=== PATIENT | male | born 1995 | race Caucasian/White ===

== ENCOUNTER 2018-09-27 16:09 | Emergency (ER) | payer MEDICAID, SELFPAY ==
[2018-09-27 16:12] VITALS: BP 126/66; PULSE 102; RESP 16; TEMP 37.1; O2SAT 98
--- NOTE | 2018-09-27 16:25 | ED.GENADUL_ITS ---
Discharge Plan Disposition Patient Disposition: HOME Condition: Stable Discharge Details Chief Complaint: Sorethroat Clinical Impression: Pharyngitis, Cough Primary Care Provider: Suellen,Local ED Provider: Yamilet Winn Home Meds and New Rx's Prescriptions: New azithromycin [Zithromax] 500 mg tablet 500 mg PO DAILY 5 Days Qty: 5 RF: 0 Discharge Instructions Instructions: Pharyngitis (ED), Acute Cough (ED) Additional Instructions: Drink plenty of fluids and get plenty of rest. Alternate Tylenol and Motrin as needed and directed for pain. Use Chloraseptic throat spray and sore throat lozenges to help with her sore throat. Refrain from trying to forcefully spit up your post-nasal drip as this is irritating to your throat. If you have no relief of symptoms in the next day, you may start the antibiotics. Follow-up with your primary care doctor in 1 week for reevaluation. Return immediately to the emergency department any worsening or new concerning symptoms. Discharge Data Discharge Date/Time-TO BE ENTERED AT DEPARTURE: 09/27/18 16:54 Discharge Physician: Yamilet Winn Medical Decision Making 23-year-old male who has a history of asthma, tobacco smoker, who presents with cough for the past 2 days and sore throat today. Denies any shortness of breath or wheezing pain or fever. Heart rate 102. Remainder vitals within normal limits. Afebrile. Patient appears nontoxic and in no acute distress. He has a mildly erythematous posterior oropharynx but no exudates, abscess, drooling, submandibular swelling, trismus. Lungs clear to auscultation. No meningeal signs. Rapid strep negative. Patient notes to be frequently attempting to spit up his postnasal drip. Discussed with patient that this is likely irritating his throat more. He had no episodes of vomiting. A dose of Decadron p.o. was given for sore throat. Although his rapid strep was negative, with his history of tobacco smoking and cough, will send home with a prescription for Zithromax to start for possible development of a throat infection or pneumonia. Will place patient on care management list to arrange for follow-up appoint with a primary care doctor and to return at any time if worse. Medical Records Medical records reviewed: Yes I reviewed the patient's medical records. Lab Data Lab results reviewed: Yes I reviewed the patient's lab results. Rapid strep negative. HPI General Mode of arrival: ambulatory . Date/Time Provider Initiated Documentation: 09/27/18 16:13 . Limitations to Documentation: no limitations . Information obtained by: patient . HPI Narrative: Patient is a 23-year-old male presents with cough with white or yellow sputum for 2 days and sore throat starting today. He denies any rate he. He did have a neck headache pain, vomiting, shortness of breath or chest pain. He has not taken any medication for his symptoms. Related Data Home Medications Medication Instructions Recorded Confirmed azithromycin [Zithromax] 500 mg PO DAILY 5 Days #5 tab 09/27/18 Previous Rx's Medication Instructions Recorded azithromycin [Zithromax] 500 mg PO DAILY 5 Days #5 tab 09/27/18 Allergies Allergy/AdvReac Type Severity Reaction Status Date / Time lactose Allergy Mild Other (See Unverified 10/09/17 06:38 Comment) General Stated Complaint: Sorethroat NATALIE: 3 Review of Systems Review of Systems All systems reviewed & are unremarkable except as noted in HPI and below Constitutional Reports as per HPI, Denies chills and Denies fever(s) Eyes Denies blurry vision ENT Denies dizziness, Reports sore throat and Denies throat swelling Cardiovascular Denies chest pain and Denies dyspnea Respiratory Reports cough and Denies dyspnea Gastrointestinal Denies abdominal pain, Denies diarrhea and Denies vomiting Genitourinary Denies hematuria and Denies dysuria Musculoskeletal Denies back pain and Denies numbness Integumentary/Breasts Denies lesions and Denies rash Neurologic Denies dizziness, Denies focal weakness and Denies numbness Allergic/Immunologic Denies throat swelling [facility] Medical History ADHD (Acute) Schizoaffective disorder (Acute) Asthma (Chronic) Bipolar disorder (Chronic) Surgical History No significant past surgical history (Acute) Social History Smoking and Tabacco status: Current every day alcohol intake: never substance use type: marijuana Exam Const General: cooperative, healthy appearing and no acute distress HENMT Head: normal to inspection Ears: hearing grossly normal bilaterally, external ears normal and TM's normal bilaterally General nose exam: external nose normal Face and sinus: normal facial exam Mouth: oral mucosae normal Throat: posterior oropharynx abnormal erythema; no exudates Eyes General: appearance normal, both eyes and all related structures Neck Neck: normal visual inspection Resp Effort & Inspection: normal respiratory effort and able to speak in complete sentences Auscultation: clear to auscultation bilaterally, no rales, no rhonchi and no wheezes Cardio Rate: regular rate Rhythm: regular rhythm GI Inspection: normal to inspection Palpation: soft, not firm, not rigid and nontender Skin General skin exam: no rashes or lesions noted Neuro General: alert, awake, oriented x3, moves all extremities, no meningeal signs and no focal motor deficits Motor: muscle tone normal throughout Extrem General: normal to inspection and full ROM Psych Appearance: grossly normal Affect: normal affect Course Vital Signs Temperature 98.8 F 09/27/18 16:12 Pulse 102 H 09/27/18 16:12 Respiratory Rate 16 09/27/18 16:12 Blood Pressure 126/66 09/27/18 16:12 Pulse Oximetry 98 09/27/18 16:12 Temperature 98.8 F 09/27/18 16:12 Temperature Source Tympanic 09/27/18 16:12 Pulse 102 H 09/27/18 16:12 Respiratory Rate 16 09/27/18 16:12 Respiratory Effort Non-Labored 09/27/18 16:16 Blood Pressure 126/66 09/27/18 16:12 Blood Pressure Position Sitting 09/27/18 16:12 Pulse Oximetry 98 09/27/18 16:12 Oxygen Delivery Method Room Air 09/27/18 16:12 Oxygen Flow Rate 0 09/27/18 16:12 Pain Level 7 09/27/18 16:12
[2018-09-27] MEDS: Dexamethasone 10 MG/ML VIAL PO (16:33)
[2018-09-27] MEDS: Ibuprofen 600 MG TAB PO (16:44)
[2018-09-27 16:54] VITALS: BP 126/66; PULSE 102; RESP 16; TEMP 37.1; O2SAT 98
--- NOTE | 2018-09-28 07:27 | PDOC.ERCMPRO ---
Care Management Progress Note 09/28-Dr. 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 Referral faxed to [facility] this am.
--- NOTE | 2018-09-28 07:29 | CMPROGNOTE_ITS ---
Care Management Progress Note 09/28-Dr. 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 Referral faxed to [facility] this am.
== END 2018-09-27 16:54 | disposition home or self-care (01) ==
PROVIDERS: Emergency Provider Physician Assistant
DX: J02.9 Acute pharyngitis, unspecified (principal); R05 Cough; F17.210 Nicotine dependence, cigarettes, uncomplicated
CPT/HCPCS: 87880; 99283; 87081; J1100

== ENCOUNTER 2019-06-17 00:51 | Emergency (ER) | payer MEDICAID, SELFPAY ==
[2019-06-17 00:53] VITALS: BP 141/81; PULSE 105; RESP 16; TEMP 36.4; O2SAT 99
--- NOTE | 2019-06-17 01:02 | ED.GENADUL_ITS ---
Discharge Plan Disposition Patient Disposition: HOME Condition: Stable Discharge Details Chief Complaint: Sorethroat Clinical Impression: Strep pharyngitis Primary Care Provider: Suellen,Local ED Provider: Ryan Flores Home Meds and New Rx's Prescriptions: New amoxicillin 500 mg capsule 500 mg PO BID Qty: 20 RF: 0 Discharge Instructions Instructions: Strep Throat (ED) Medical Decision Making 23 yo male has had sore throat for 3 days and his girlfriend recently was dx'd with strep. HE was trying to treat his sore throat at home and tonight was e ating popcorn and chewing on his fingernails and had increased pain in left posterior pharynx and thought maybe a fingernail got stuck. HE is speaking in full sentences and swallowing normally. He has erythema of the posterior pharynx, no foreign body, no pain over the hyoid and no restricted neck movements, no findings to suggest rpa, vessel captain, epiglotitis. I discussed with the pt at length the likelihood of a fingernail being stuck in the throat being low but a CT could confirm it but after discussing risks benefits of the radiation he declines to have a CT. Given the close contact with his girlfriend will tx as strep with amoxicillin and advised f/u with pcp if symptoms continue and return precautions given Differential Diagnosis Differential Diagnosis: laceration, strep throat HPI General Mode of arrival: ambulatory . Date/Time Provider Initiated Documentation: 06/17/19 00:57 . Limitations to Documentation: no limitations . Information obtained by: patient . History of Present Illness 23 year old M presents to the emergency department with the chief complaint of sore throat, described as moderate, Patient started experiencing this day(s) (2) and it has been constant. No relieving factors improve symptom(s), No exacerbating factors reported . Related Data Home Medications Medication Instructions Recorded Confirmed amoxicillin 500 mg PO BID #20 cap 06/17/19 Previous Rx's Medication Instructions Recorded amoxicillin 500 mg PO BID #20 cap 06/17/19 Allergies Allergy/AdvReac Type Severity Reaction Status Date / Time lactose Allergy Mild Other (See Unverified 10/09/17 06:38 Comment) General Stated Complaint: Sorethroat NATALIE: 4 Review of Systems All systems reviewed & are unremarkable except as noted in HPI and below Constitutional Constitutional: Denies weakness ENT Ears, Nose, Mouth, and Throat: Denies change in voice Cardiovascular Cardiovascular: Denies chest pain and Denies dyspnea Respiratory Respiratory: Denies cough and Denies dyspnea Gastrointestinal Gastrointestinal: Denies abdominal pain, Denies nausea and Denies vomiting Musculoskeletal Musculoskeletal: Denies joint swelling Neurologic Neurologic: Denies weakness [facility] Social History Smoking/Tobacco Use Status: Current every day Tobacco Type: cigarettes Alcohol Intake: current Alcohol Intake frequency: a few times a week Substance use type: marijuana, crack/cocaine and methamphetamine Do you feel safe at home: Yes Do you feel safe in your relationship?: Yes Exam Const General: no acute distress Orientation: alert HENMT Head: normal to inspection Ears: external ears normal General nose exam: external nose normal Mouth: moist mucous membranes Eyes General: appearance normal, both eyes and all related structures Neck Neck: normal visual inspection Resp Effort & Inspection: normal respiratory effort and able to speak in complete sentences Cardio Rate: regular rate Skin General skin exam: no rashes or lesions noted Neuro General: alert and oriented x3 Extrem General: normal to inspection Psych Mental Status: mental status grossly normal Course Vital Signs Vital signs: Vital Signs Temperature 36.4 C L 06/17/19 00:53 Pulse 105 H 06/17/19 00:53 Respiratory Rate 16 06/17/19 00:53 Blood Pressure 141/81 H 06/17/19 00:53 Pulse Oximetry 99 06/17/19 00:53 Temperature 36.4 C L 06/17/19 00:53 Temperature Source Skin 06/17/19 00:53 Pulse 105 H 06/17/19 00:53 Respiratory Rate 16 06/17/19 00:53 Respiratory Effort 06/17/19 00:56 Blood Pressure 141/81 H 06/17/19 00:53 Blood Pressure Position Sitting 06/17/19 00:53 Pulse Oximetry 99 06/17/19 00:53 Oxygen Delivery Method Room Air 06/17/19 00:53 Oxygen Flow Rate 0 06/17/19 00:53 Pain Level 9 06/17/19 00:53 Comment 06/17/19 00:53
[2019-06-17] MEDS: Lidocaine 2% Viscous 15 ML CUP PO (01:05)
[2019-06-17] MEDS: Amoxicillin 500 MG CAP PO (01:05)
--- NOTE | 2019-06-17 01:37 | NUR.NOTE ---
Tolerating popsicle. No longer coughing or gagging. Ambulated to exit with steady gait.
== END 2019-06-17 01:30 | disposition home or self-care (01) ==
LOC: ER 01:32
PROVIDERS: Emergency Provider Emergency Medicine
DX: J02.0 Streptococcal pharyngitis (principal); R11.10 Vomiting, unspecified; F41.9 Anxiety disorder, unspecified
CPT/HCPCS: 36415; 80053; 96361; 96374; 99283; 99284; 85025; J2060; J2405

== ENCOUNTER 2019-06-17 20:22 | Emergency (ER) | payer MEDICAID, SELFPAY ==
[2019-06-17] VITALS (7 sets, daily range): BP systolic 122–138; BP diastolic 62–88; PULSE 97–108; RESP 20; O2SAT 96–100
--- NOTE | 2019-06-17 20:51 | W.ED.GENAD ---
Discharge Plan Disposition Patient Disposition: HOME Discharge Details Chief Complaint: Sorethroat Clinical Impression: Sore throat [facility] Home Meds and New Rx's Prescriptions: No Action amoxicillin 500 mg capsule 500 mg PO BID Qty: 20 RF: 0 Discharge Instructions Instructions: Pharyngitis (ED) Additional Instructions: It is very important that you filled your prescription for antibiotics tomorrow. Return should your symptoms worsen or you develop difficulty or inability to swallow, intractable vomiting or difficulty breathing Referrals: Gerard Carmona PA [Emergency Provider] - Return if symptoms worsen Medical Decision Making This is a nontoxic-appearing 23-year-old male who presents to the emergency department with a foreign body sensation/sore throat in his posterior pharynx. He is afebrile and vital signs are otherwise stable with the exception of a mild tachycardia. Negative shock index. He is without fever. His physical exam is unremarkable. He has no stridor and is handling secretions. He is vomited several times however this appears to only be present when the medical staff member is in the room with him. I did give the patient a GI cocktail along with 1 mg of Ativan IV with significant relief. I do not feel the need for CT scan at this time based on the above physical exam findings. He did not fill his antibiotic for suspected pharyngitis with which I have urged him to do so. He does appear quite anxious and admits to frequent methamphetamine use. He states that he has not used in 2 days.? Possible methamphetamine withdrawals. HPI General Date/Time Provider Initiated Documentation: 06/17/19 20:41. HPI Narrative: Patient is a 23-year-old male who returns to the emergency department with lower sore throat pain over the last 24 hours. Patient states that he has had URI symptoms for roughly 3 days but acutely developed severe sore throat yesterday evening. He states the symptoms started after he was eating popcorn and biting his nails. He was seen here in the emergency department yesterday evening where he was diagnosed with suspected strep throat, as his significant other was diagnosed with confirmed strep. They did discuss the possibility of a foreign body based on his acute/abrupt symptoms however CT scan was deferred at that time. He has no stridor or wheezing. He states that he is been vomiting secondary to gagging from his throat pain. No fevers. No neck stiffness. No pain with rotation or flexion/extension of the head or neck. Patient does state that he has not used methamphetamine for roughly 3 days. Related Data Home Medications Medication Instructions Recorded Confirmed amoxicillin 500 mg PO BID #20 cap 06/17/19 Previous Rx's Medication Instructions Recorded amoxicillin 500 mg PO BID #20 cap 06/17/19 Allergies Allergy/AdvReac Type Severity Reaction Status Date / Time lactose Allergy Mild Other (See Unverified 10/09/17 06:38 Comment) General Stated Complaint: Sorethroat NATALIE: 4 Review of Systems Constitutional Constitutional: Denies chills, Denies fatigue, Denies fever(s), Denies headache(s), Denies lethargy, Denies malaise and Denies night sweats Eyes Eyes: Denies blurry vision and Denies floaters ENT Ears, Nose, Mouth, and Throat: Denies dysphagia, Denies dry mouth, Denies otalgia, Denies facial pain, Denies headache(s), Denies nasal discharge, Denies nasal obstruction, Denies neck mass, Denies neck pain, Reports sore throat, Denies throat swelling and Denies tongue swelling Cardiovascular Cardiovascular: Denies chest pain Respiratory Respiratory: Denies stridor and Denies wheezing Gastrointestinal Gastrointestinal: Denies dysphagia, Reports nausea and Reports vomiting Genitourinary Genitourinary: Denies dysuria Musculoskeletal Musculoskeletal: Denies neck pain Neurologic Neurologic: Denies headache(s) Endocrine Endocrine: Denies fatigue Allergic/Immunologic Allergic/Immunologic: Denies throat swelling, Denies tongue swelling and Denies wheezing [facility] Medical History ADHD (Acute) Asthma (Chronic) Bipolar disorder (Chronic) Schizoaffective disorder (Acute) Surgical History No significant past surgical history (Acute) Social History Smoking/Tobacco Use Status: Current every day Tobacco Type: cigarettes Alcohol Intake: current Alcohol Intake frequency: a few times a week Substance use type: marijuana, crack/cocaine and methamphetamine Details: per pt, last used meth 2 days ago Do you feel safe at home: Yes Do you feel safe in your relationship?: Yes Exam Const General: cooperative Orientation: alert, awake and oriented x3 HENMT Head: normal to inspection Face and sinus: normal facial exam Teeth and gingiva: dentition normal Throat: posterior oropharynx normal and uvula midline Eyes General: appearance normal, both eyes and all related structures Neck Neck: normal visual inspection, full ROM, no lymphadenopathy and trachea midline Thyroid: thyroid normal Lymphatic: no lymphadenopathy noted Chest Chest: normal inspection of the chest and normal palpation of entire chest wall Resp Effort & Inspection: normal respiratory effort, able to speak in complete sentences and no stridor Auscultation: clear to auscultation bilaterally Cardio Rate: regular rate Rhythm: regular rhythm Pulses: normal peripheral pulses GI Inspection: normal to inspection Palpation: soft Skin General skin exam: no rashes or lesions noted Course Vital Signs Vital signs: Vital Signs Pulse 108 H 06/17/19 20:32 Respiratory Rate 20 06/17/19 20:32 Blood Pressure 122/80 06/17/19 20:32 Pulse Oximetry 99 06/17/19 20:32 Temperature Source Skin 06/17/19 20:32 Pulse 108 H 06/17/19 20:32 Respiratory Rate 20 06/17/19 20:32 Respiratory Effort 06/17/19 20:40 Blood Pressure 122/80 06/17/19 20:32 Blood Pressure Position Sitting 06/17/19 20:32 Pulse Oximetry 99 06/17/19 20:32 Oxygen Delivery Method Room Air 06/17/19 20:32 Oxygen Flow Rate 0 06/17/19 20:32
[2019-06-17] MEDS: LORazepam 2 MG/ML VIAL 1 MG IVP (21:00)
[2019-06-17] MEDS: Normal Saline 1,000 ML 1000 ML IV (21:00)
[2019-06-17] MEDS: Normal Saline Flush 10 ML SYR IVP (21:00)
[2019-06-17 21:08] LABS: HCT 49.4 % (40.0-50.0); HGB 17.2 g/dL (13.5-17.5); Mean Corp. HGB Concentration 34.8 g/dL (32.0-36.0); Mean Corpuscular Hemoglobin 29.4 pg (27.0-33.0); Mean Corpuscular Volume 84.4 fL (80-95); Mean Platelet Volume 9.5 fL (8.0-11.0); Platelet Count 395 x1000/uL (130-400); RBC 5.85 m/cumm (4.50-6.00); RBC Distribution Width 12.7 % (11.8-14.1); White Blood Cell Count 12.76 k/cumm (4.4-10.8)
[2019-06-17] MEDS: Ondansetron 4 MG/2 ML VIAL IVP (21:18)
[2019-06-17 21:20] LABS: ALT 134 U/L (16-63); AST 166 U/L (15-37); Albumin 3.8 g/dL (3.4-5.0); Alkaline Phosphatase 78 U/L (46-116); BUN 25 mg/dL (7-18); Bilirubin, Total 1.5 mg/dL (0.2-1.0); Calcium 10.2 mg/dL (8.5-10.1); Chloride 95 mmol/L (98-107); Glucose 105 mg/dL (70-100); Potassium 3.3 mmol/L (3.5-5.1); Sodium 138 mmol/L (136-145); Total Protein 9.3 g/dL (6.4-8.2)
[2019-06-17 21:23] LABS: Absolute Eosinophil Count 0.13 k/cumm (0.0-0.7); Absolute Lymphocyte Count 3.32 k/cumm (1.2-3.4); Absolute Monocyte Count 1.53 k/cumm (0.11-0.7); Absolute Neutrophil Count 7.78 k/cumm (1.2-6.7); Atypical Lymphocytes % 1; Diff Comment Manual Differential; RBC Morphology Normal
--- NOTE | 2019-06-17 21:41 | NUR.NOTE ---
Nursing Note:No further vomiting at this time. Laying in bed, resting. S.O at bedside
== END 2019-06-17 22:07 | disposition home or self-care (01) ==
PROVIDERS: Emergency Provider Physician Assistant
DX: J02.0 Streptococcal pharyngitis (principal); R11.10 Vomiting, unspecified; F41.9 Anxiety disorder, unspecified
CPT/HCPCS: 36415; 80053; 96361; 96374; 99284; 85025; J2060; J2405

== ENCOUNTER 2020-04-13 21:28 | Emergency (ER) | payer MEDICAID, SELFPAY ==
--- NOTE | 2020-04-13 21:26 | ED.GENADUL_ITS ---
Discharge Plan Disposition Patient Disposition: HOME Condition: Improving Discharge Details Clinical Impression: Marijuana intoxication Primary Care Provider: Suellen,Local ED Provider: Afia Colvin Home Meds and New Rx's Prescriptions: Continued amoxicillin 500 mg capsule 500 mg PO BID Qty: 20 RF: 0 Discharge Instructions Additional Instructions: Continue to encourage water intake. Stop smoking marijuana. You have declined any blood work here. However, you may return at any time for continued evaluation. If you develop chest pain, shortness of breath, difficulty breathing, fevers or other new/worsening symptoms please seek care urgently once again. I have asked care management to help you establish primary care provider. Medical Decision Making Patient is a 24 year old male brought in via EMS with concern for marijuana intoxication. He states that he smokes marijuana multiple times per day. He smoked one hour prior to arrival, had smoked 2 hours prior to that. He states that he and his brother smoked a new marijuana and both had unusual effects including changes in sensation, tingling in hands/feet, headache, anxiety, dry mouth, dry eyes. He states that most of his symptoms, aside from the dry eyes and mouth, have resolved. EKG was obtained, reviewed by Dr. Winn. No acute ischemic changes noted. He was initially noted to have HR of 140 by EMS, he is downtrending now. At this time, I see no evidence of respiratory distress, rhabdomyolysis, cardiac dysrythmia or other emergent pathology. Raymond is refusing any further workup. Was hoping that we would test his marijuana.I did recommend hydration and blood work but he is declining. He was advised to stop smoking. He is hydrating here now. He reports feeling improved. He is aware that he may return at any time for further evaluation. Return precautions discussed. He is requesting discharge, is able to go home with signficant other. All of his questions and concerns were addressed, he is in agreement with this plan. HPI General Mode of arrival: EMS . Date/Time Provider Initiated Documentation: 04/13/20 21:34 . Limitations to Documentation: no limitations . Information obtained by: patient, EMS and RN notes reviewed . HPI Narrative: Patient is a 24 year old male presenting today with c/c of marijuana intoxi cation. States that approximately 1 hour prior to arrival he was smoking marijuana with his brother and 5 minutes after, developed altered sensations. States that he felt like I was a child and everything was claymation. States that he was having some tingling in his fingers and toes. Reports that initially he was having some chest heaviness. Reports that the symptoms have since resolved. Is currently endorsing burning in his eyes as well as dry mouth and headache. Headache was not thunderclap headache, this felt similar to previous. No nausea or vomiting. Related Data Home Medications Medication Instructions Recorded Confirmed amoxicillin 500 mg PO BID #20 cap 06/17/19 Previous Rx's Medication Instructions Recorded amoxicillin 500 mg PO BID #20 cap 06/17/19 Allergies Allergy/AdvReac Type Severity Reaction Status Date / Time lactose Allergy Mild Other (See Unverified 10/09/17 06:38 Comment) General NATALIE: 4 Review of Systems Constitutional Constitutional: Reports as per HPI, Denies chills, Denies fever(s), Reports headache(s), Denies lethargy and Denies poor appetite Eyes Eyes: Denies change in vision ENT Ears, Nose, Mouth, and Throat: Denies dizziness and Reports headache(s) Cardiovascular Cardiovascular: Reports as per HPI, Denies dyspnea and Denies dyspnea on exertion Respiratory Respiratory: Reports as per HPI, Denies chest congestion, Denies cough, Denies pain on inspiration, Denies pain with cough, Denies dyspnea, Denies dyspnea on exertion and Denies wheezing Gastrointestinal Gastrointestinal: Reports as per HPI, Denies abdominal pain, Denies diarrhea, Denies nausea and Denies vomiting Genitourinary Genitourinary: Denies system reviewed and no additional complaints, except as documented (denies change in urinary habits) Musculoskeletal Musculoskeletal: Reports as per HPI and Denies back pain Integumentary/Breasts Skin/Breast: Reports as per HPI and Denies rash Neurologic Neurologic: Reports as per HPI, Denies dizziness and Reports headache(s) Psychiatric Psychiatric: Reports visual hallucinations, Reports hallucinations, Denies tactile hallucinations and Denies suicidal ideation Allergic/Immunologic Allergic/Immunologic: Denies wheezing PFSH Medical History ADHD Asthma Bipolar disorder Schizoaffective disorder Surgical History No significant past surgical history Social History Smoking/Tobacco Use Status: Current every day Tobacco Type: cigarettes Alcohol Intake: current Alcohol Intake frequency: a few times a week Substance use type: marijuana, crack/cocaine and methamphetamine Details: per pt, last used meth 2 days ago Do you feel safe at home: Yes Do you feel safe in your relationship?: Yes Exam Const General: cooperative, comfortable, no acute distress, well developed, anxious and intoxicated appearing (appears stoned) Nutritional Appearance: well nourished and thin Orientation: alert, awake and oriented x3 HENMT Head: normal to inspection Ears: hearing grossly normal bilaterally Mouth: moist mucous membranes Chest Chest: normal inspection of the chest, normal palpation of entire chest wall and no crepitus Resp Effort & Inspection: normal respiratory effort, able to speak in complete sentences and no respiratory distress Auscultation: clear to auscultation bilaterally, no rales, no rhonchi and no wheezes Cardio Rate: regular rate Rhythm: regular rhythm Heart Sounds: S1 normal and S2 normal GI Inspection: normal to inspection, no edema and non-distended Palpation: soft, no hepatosplenomegaly, not firm, no guarding, not rigid and nontender Auscultation: normal bowel sounds Back/Spine/Pelvis Back: no CVA tenderness Thoracic/Lumbar Spine: thoracic and lumbar spine normal to inspection Skin General skin exam: no rashes or lesions noted Trauma: no lacerations or abrasions Neuro General: patient alert, patient awake and patient oriented x3 Cognition: normal cognition Speech: speech normal Gait: normal gait Extrem General: normal to inspection, capillary refill normal, no pedal edema, no calf tenderness and normal gait Psych Appearance: grossly normal and disheveled Mental Status: mental status grossly normal Speech and Movement: speech and movement normal
[2020-04-13 21:30] VITALS: BP 140/67; PULSE 116; RESP 16; TEMP 37.2; O2SAT 95
--- NOTE | 2020-04-13 21:30 | RT.EKG_ITS ---
APPROVED REPORT Exam: Resting ECG Patient Location: E HR:102 bpm ECG Measurements Heart Rate 102 AXIS ME 145 P 71 QRSd 82 QRS 25 QT 338 T 44 QTc 441 Conclusion Sinus tachycardia...rate> 99. Sinus. No STEMI. Nondiagnostic.
[2020-04-13 21:33] VITALS: RESP 16
[2020-04-13] MEDS: Acetaminophen 500 MG TAB 1000 MG PO (21:48)
[2020-04-13 21:50] VITALS: BP 117/66; PULSE 102; RESP 16; O2SAT 97
--- NOTE | 2020-04-13 21:51 | NUR.NOTE ---
LUNA Patiño from home s/p smiking marijuana. Pt reports he felt all weird and olga lidia after i smoked it. States he thinks it was laced. Daily marijuana smoker, no adverse reaction in the past. Arrives A&Ox3, speaking in full clkear sentences. Reports chest tightness after smoking, headache 02/06. Declined IV, fluids, labs. Pt requesting staff test marijuana to see if it was laced., Advised pt we are unable to do that. Drinking PO fluids, andriy well.
--- NOTE | 2020-04-13 21:56 | NUR.NOTE ---
Nursing Note:REFERAL SENT TO CM FOR EST OF PCP 04/13/20
--- NOTE | 2020-04-13 22:00 | NUR.NOTE ---
Ambulating with steady gait. Pt reports feeling better after several glasses of water.
--- NOTE | 2020-04-14 08:59 | PDOC.ERCMPRO ---
- If Service Date Differs Date of service: 04/14/20 Time of Service: 08:59 Care Management Progress Note Dom is seen in the ED on 04/13/2020 for marijuana intoxication. At the request of ED provider, SHMUEL coordinates referral to Sofia Gorman NP, on-call provider, of [facility] to assist Dom in establishing care with a local PCP. Dom has Medicaid for insurance.
== END 2020-04-13 21:55 | disposition home or self-care (01) ==
LOC: ER 21:59
PROVIDERS: Emergency Provider Physician Assistant
DX: R20.8 Other disturbances of skin sensation (principal); F12.122 Cannabis abuse with intoxication with perceptual disturbance; F41.9 Anxiety disorder, unspecified; T40.7X5A Adverse effect of cannabis (derivatives), initial encounter
CPT/HCPCS: 93005; 99283; 93010

== ENCOUNTER 2020-05-22 16:02 | Outpatient (REF) | payer MEDICAID, SELFPAY ==
[2020-05-24 22:54] LABS: Patient Race White; SARS-CoV-2 RNA Undetected (Undetected); SARS-CoV-2 Specimen Source Nasal
== END 2020-05-22 16:22 ==
LOC: NCHCN 16:02
PROVIDERS: Visit Provider Nurse Practitioner Family
DX: Z11.59 Encounter for screening for other viral diseases (principal)
CPT/HCPCS: U0003

== ENCOUNTER 2020-06-01 14:34 | Outpatient (REF) | payer MEDICAID, SELFPAY | END 2020-06-01 14:54 | LOC: LBN 14:34 | PROVIDERS: Visit Provider Family Medicine | DX: J18.9 Pneumonia, unspecified organism (principal) | CPT/HCPCS: 87449 ==

== ENCOUNTER 2020-06-03 01:02 | Outpatient (CLI) | payer MEDICAID, SELFPAY ==
--- NOTE | 2020-06-03 14:10 | DI.RAD_ITS ---
EXAM: XR CHEST 2V PA LATERAL CLINICAL HISTORY: Fever, cough, COVID-19 negative, ? PNEUMONIA TECHNIQUE: 2D digital imaging was performed. COMPARISON: CR CHEST 2 VIEWS PA,LAT from 10/09/2017 FINDINGS: MEDIASTINUM: Normal. HEART: Normal. PULMONARY VASCULATURE: Normal. LUNGS: Clear. PLEURAL SPACE: No pleural effusion or pneumothorax. BONE:Within normal limits for the patient's age. OTHER FINDINGS:Normal. IMPRESSION: No acute pulmonary findings. DATA REPOSITORY: RADIATION DOSE DELIVERED:
== END 2020-06-03 01:22 ==
PROVIDERS: Visit Provider Family Medicine
DX: R05 Cough (principal); R50.9 Fever, unspecified; Z03.818 Encounter for observation for suspected exposure to other biological agents ruled out
CPT/HCPCS: 71046

== ENCOUNTER 2020-08-27 12:17 | Emergency (ER) | payer MEDICAID, SELFPAY ==
[2020-08-27 12:36] VITALS: BP 123/76; PULSE 79; RESP 18; TEMP 36.5; O2SAT 100
[2020-08-27] MEDS: Normal Saline 1,000 ML 1000 ML IV ×2 (13:05→13:39)
[2020-08-27] MEDS: Ondansetron 4 MG/2 ML VIAL IVP (13:11)
[2020-08-27 13:14] LABS: Abs Immature Grans 0.03 10^3/uL (0.0-0.06); Absolute Basophil Count 0.03 10^3/uL (0.0-0.2); Absolute Eosinophil Count 0.04 10^3/uL (0.0-0.7); Absolute Lymphocyte Count 1.45 10^3/uL (1.2-3.4); Absolute Neutrophil Count 6.11 10^3/uL (1.2-6.7); Basophils % 0.4; Eosinophils % 0.5; HCT 49.4 % (40.0-50.0); HGB 16.5 g/dL (13.5-17.5); Immature Grans % 0.4; MCH 29.2 pg (27.0-33.0); MCHC 33.4 % (32.0-36.0); MCV 87.3 fL (80-95); MPV 9.1 fL (8.0-11.0); Neutrophils % 75.7; Nucleated RBC 0 %; Platelet Count 372 10^3/uL (130-400); RBC 5.66 10^6/uL (4.36-5.78); RDW 13.4 % (11.8-14.1); RDW-SD 42.8 fL; WBC 8.06 10^3/uL (4.4-10.8)
[2020-08-27 13:29] LABS: ALT 29 U/L (16-63); AST 22 U/L (15-37); Albumin 4.7 g/dL (3.4-5.0); Alkaline Phosphatase 62 U/L (46-116); Anion Gap 8.8 mmol/L (3-11); BUN 15 mg/dL (7-18); Bilirubin, Total 0.6 mg/dL (0.2-1.0); CO2 32.2 mmol/L (21.0-32.0); CREATININE 1.2 mg/dL (0.70-1.30); Calcium 10.6 mg/dL (8.5-10.1); Chloride 96 mmol/L (98-107); Glucose 101 mg/dL (74-106); Lipase 72 U/L (73-393); Potassium 3.4 mmol/L (3.5-5.1); Sodium 137 mmol/L (136-145); Total Protein 9.1 g/dL (6.4-8.2)
--- NOTE | 2020-08-27 13:50 | W.ED.GENAD ---
Discharge Plan Disposition Patient Disposition: HOME Condition: Stable Discharge Details Clinical Impression: Nausea & vomiting, Fever Primary Care Provider: Suellen,Local ED Provider: Fede Lee Home Meds and New Rx's Prescriptions: New ondansetron 4 mg tablet,disintegrating 4 mg PO Q8H PRN (Reason: nausea and vomiting) Qty: 10 RF: 0 Discharge Instructions Instructions: Acute Nausea and Vomiting (ED) Additional Instructions: Please maintain isolation until Covid result is available and negative. Please drink small amounts of fluid frequently in order to stay hydrated. Take nausea medicine as prescribed. Please contact your primary care physician to arrange follow-up. Return to the ER for any worsening or new concerning symptoms. Discharge Data Discharge Date/Time-TO BE ENTERED AT DEPARTURE: 08/27/20 14:05 Medical Decision Making 25-year-old male here with nausea, vomiting, fever since last night. No known sick contacts. Patient appears dehydrated. Abdominal exam benign. We will give IV fluid bolus and antiemetic Zofran 4 mg IV. Labs reviewed: No leukocytosis, normal LFTs and normal lipase. Mild hypokalemia noted. I will give potassium chloride 20 mEq p.o. Patient reassessed and feeling much better. Usual customary discharge instructions reviewed with the patient. Covid testing outpatient pending. HPI General Mode of arrival: ambulatory. Date/Time Provider Initiated Documentation: 08/27/20 13:02. Limitations to Documentation: no limitations. Information obtained by: patient. HPI Narrative: 25-year-old male here with chief complaint of nausea. He has associated nausea, vomiting, fever since last night. Nausea is moderate. Patient notes that he is not able to tolerate fluids today. He has no associate abdominal pain. Patient has had associated mild cough which he attributes to throat irritation from vomiting. Patient denies sick contacts. Related Data Home Medications Medication Instructions Recorded Confirmed ondansetron 4 mg PO Q8H PRN #10 tab 08/27/20 Previous Rx's Medication Instructions Recorded ondansetron 4 mg PO Q8H PRN #10 tab 08/27/20 Allergies Allergy/AdvReac Type Severity Reaction Status Date / Time lactose Allergy Mild Other (See Unverified 08/27/20 12:42 Comment) General Stated Complaint: Nausea/Vomit/Diar NATALIE: 3 Review of Systems All systems reviewed & are unremarkable except as noted in HPI and below Constitutional Constitutional: Reports as per HPI Gastrointestinal Gastrointestinal: Reports as per HPI [facility] Medical History (Updated 08/27/20 @ 13:53 by Fede Lee MD) ADHD Asthma Bipolar disorder Schizoaffective disorder Surgical History No significant past surgical history Social History Smoking/Tobacco Use Status: Current every day Tobacco Type: cigarettes Smoking risk assessment performed?: Yes Alcohol Intake: former Drug use: Daily Substance use type: marijuana Details: Current sobriety from Crack/Meth Do you feel safe at home: Yes Do you feel safe in your relationship?: Yes Exam Const General: cooperative and no acute distress HENMT Mouth: mucous membranes dry Eyes Conjunctivae: normal conjunctivae Sclera: normal sclerae Resp Auscultation: clear to auscultation bilaterally, no rales, no rhonchi and no wheezes Cardio Rate: regular rate and not tachycardic Rhythm: regular rhythm GI Palpation: soft, not firm, no guarding, no masses, not rigid and nontender Skin General skin exam: no rashes or lesions noted Neuro General: patient alert, patient awake and tone normal Extrem General: no edema Psych Appearance: grossly normal Mental Status: mental status grossly normal Course Vital Signs Vital signs: Vital Signs Temperature 36.5 C 08/27/20 12:36 Pulse 79 08/27/20 12:36 Respiratory Rate 18 08/27/20 12:36 Blood Pressure 123/76 08/27/20 12:36 Pulse Oximetry 100 08/27/20 12:36 Temperature 36.5 C 08/27/20 12:36 Temperature Source Temporal Artery Scan 08/27/20 12:36 Pulse 79 08/27/20 12:36 Respiratory Rate 18 08/27/20 12:36 Respiratory Effort Non-Labored 08/27/20 12:39 Blood Pressure 123/76 08/27/20 12:36 Blood Pressure Position Supine 08/27/20 12:36 Pulse Oximetry 100 08/27/20 12:36 Oxygen Delivery Method Room Air 08/27/20 12:36 Oxygen Flow Rate 0 08/27/20 12:36 Pain Level 6 08/27/20 12:36 Lab/Test Results Lab/Test Results: Laboratory Tests Range/Units 08/27/20 08/27/20 13:00 13:00 WBC (4.4-10.8) 10^3/uL 8.06 RBC (4.36-5.78) 10^6/uL 5.66 Hgb (13.5-17.5) g/dL 16.5 Hct (40.0-50.0) % 49.4 MCV (80-95) fL 87.3 MCH (27.0-33.0) pg 29.2 MCHC (32.0-36.0) % 33.4 RDW (11.8-14.1) % 13.4 Plt Count (130-400) 10^3/uL 372 MPV (8.0-11.0) fL 9.1 Immature Gran % 0.4 Neutrophils % 75.7 Lymphocytes % 18.0 Monocytes % 5.0 Eosinophils % 0.5 Basophils % 0.4 Nucleated RBC % % 0 Absolute Neutrophils (1.2-6.7) 10^3/uL 6.11 Absolute Lymphocytes (1.2-3.4) 10^3/uL 1.45 Absolute Monocytes (0.1-0.8) 10^3/uL 0.40 Absolute Eosinophils (0.0-0.7) 10^3/uL 0.04 Absolute Basophils (0.0-0.2) 10^3/uL 0.03 Sodium (136-145) mmol/L 137 Potassium (3.5-5.1) mmol/L 3.4 L Chloride (98-107) mmol/L 96 L Carbon Dioxide (21.0-32.0) mmol/L 32.2 H Anion Gap (3-11) mmol/L 8.8 BUN (7-18) mg/dL 15 Creatinine (0.70-1.30) mg/dL 1.2 Estimated GFR/1.73 m2 (mL/min/1.73m2) >= 60.00 Glucose (74-106) mg/dL 101 Calcium (8.5-10.1) mg/dL 10.6 H Total Bilirubin (0.2-1.0) mg/dL 0.6 AST (15-37) U/L 22 ALT (16-63) U/L 29 Alkaline Phosphatase (46-116) U/L 62 Total Protein (6.4-8.2) g/dL 9.1 H Albumin (3.4-5.0) g/dL 4.7 Lipase (73-393) U/L 72
[2020-08-27 14:07] VITALS: BP 114/67; PULSE 64; RESP 16; TEMP 36.5; O2SAT 100
== END 2020-08-27 14:05 | disposition home or self-care (01) ==
PROVIDERS: Emergency Provider Student in an Organized Health Care Education/Training Program
DX: R11.2 Nausea with vomiting, unspecified (principal); R50.9 Fever, unspecified; E86.0 Dehydration; E87.6 Hypokalemia
CPT/HCPCS: 36415; 80053; 83690; 96361; 96374; 99284; 85025; 99283; J2405

== ENCOUNTER 2021-05-19 11:58 | Emergency (ER) | payer MEDICAID, SELFPAY ==
[2021-05-19] VITALS (35 sets, daily range): BP systolic 126–141; BP diastolic 72–87; PULSE 88–177; RESP 9–29; TEMP 36.6; O2SAT 95–100
--- NOTE | 2021-05-19 12:12 | W.ED.GENAD ---
Discharge Plan Disposition Patient Disposition: HOME Condition: Improving Discharge Details Clinical Impression: Acute dehydration [facility]irmal Guad[facility]ama Home Meds and New Rx's Prescriptions: New ondansetron HCl [Zofran] 4 mg tablet 4 mg PO Q8H PRN (Reason: nausea and vomiting) Qty: 7 RF: 0 Discharge Instructions Instructions: Dehydration (ED) Additional Instructions: Home to rest today. Small, frequent to fluids to maintain hydration. Your potassium was slightly low for which she received supplementation in the ED today. You may liberalize potassium in the diet with bananas, strawberries, tree nuts such as almonds or cashews and leafy greens. Zofran if needed for nausea. Return to the emergency room for any acute concerns. Medical Decision Making 25-year-old male presents from home. States he has had 4 days of intermittent episodes of crampy abdominal pain, decreased p.o. intake and today developed leg cramps. Leg cramps causing significant pain and anxiety for which he called the ambulance. He was quite anxious with ongoing muscle cramps, elevated heart rate. His abdomen does not demonstrate particular focal tenderness. Most consistent with dehydration, viral syndrome, as well as consideration for cannabinoid hyperemesis syndrome. Patient IV access set was, given fluid bolus and antiemetic. His labs reveal probable hemoconcentration with a white count of 10, hemoglobin 19, hematocrit 57, platelets 435. Sodium 138, potassium 3.7, chloride 88, bicarb 39, BUN 29, creatinine 1.9. Patient given 3 L of fluid with improvement. Referred for repeat laboratories which show a white count of 8, hemoglobin 14, hematocrit 42, platelets 305. Repeat chemistries HPI General Mode of arrival: ambulatory. Date/Time Provider Initiated Documentation: 05/19/21 12:14. Limitations to Documentation: no limitations. Information obtained by: patient. History of Present Illness 25 year old M presents to the emergency department with the chief complaint of Muscle cramps and dehydration, abdominal pain, described as moderate, Quality is described as dull and constant, and is localized to the abdomen. Patient reports no radiation. Patient started experiencing this day(s) and it has been intermittent. No relieving factors improve symptom(s), No exacerbating factors reported . Patient notes loss of appetite and other (Muscle cramps in legs); denies fever/chills. Patient did receive the following treatments prior to arrival, none Related Data Home Medications Medication Instructions Recorded Confirmed ondansetron HCl [Zofran] 4 mg PO Q8H PRN #7 tab 05/19/21 Previous Rx's Medication Instructions Recorded ondansetron HCl [Zofran] 4 mg PO Q8H PRN #7 tab 05/19/21 Allergies Allergy/AdvReac Type Severity Reaction Status Date / Time lactose Allergy Mild Other (See Unverified 05/19/21 13:26 Comment) General Stated Complaint: Abd Prob NATALIE: 3 Review of Systems Narrative: Denies drug or alcohol use. No fever or vomiting. 6 systems reviewed and otherwise negative REPLACED BY [facility] Medical History (Updated 05/19/21 @ 15:55 by Nirmal Guadarrama MD) ADHD Asthma Bipolar disorder Schizoaffective disorder Surgical History No significant past surgical history Social History Smoking/Tobacco Use Status: Current every day Tobacco Type: cigarettes Smoking risk assessment performed?: Yes Alcohol Intake: former Drug use: Daily Substance use type: marijuana Details: Current sobriety from Crack/Meth Do you feel safe at home: Yes Do you feel safe in your relationship?: Yes Exam Narrative Exam Narrative: GEN: awake, alert, oriented 3. Anxious HEAD: Normocephalic, atraumatic ENT: Mucous membranes dry, oropharynx unremarkable, External ear exam unremarkable EYES: PERRL, EOMI NECK: Full ROM, no JH, no menigismus CHEST/RESP: Nontender and clear to auscultation bilateral, no wheeze/rhonchi/rales CARDIOVASCULAR: Regular and tachycardic, no murmur, rub fawad. 2+ Rad pulse bilateral ABDOMEN: Soft, mild diffuse tenderness without rebound or guarding, no mass. +Bowel sounds EXT: Full ROM, no edema, no rash Neuro: Grossly normal neurologic exam, conversant, interactive. Psych: Speech fluent, thoughts congruent, affect anxious Course Vital Signs Vital signs: Vital Signs Temperature 36.6 C 05/19/21 12:00 Pulse 146 H 05/19/21 12:00 Respiratory Rate 24 05/19/21 12:00 Blood Pressure 139/72 05/19/21 12:00 Pulse Oximetry 99 05/19/21 12:00 Temperature 36.6 C 05/19/21 12:00 Temperature Source Temporal Artery Scan 05/19/21 12:00 Pulse 146 H 05/19/21 12:00 Respiratory Rate 24 05/19/21 12:00 Blood Pressure 139/72 05/19/21 12:00 Blood Pressure Position Supine 05/19/21 12:00 Pulse Oximetry 99 05/19/21 12:00 Oxygen Delivery Method Room Air 05/19/21 12:00 Oxygen Flow Rate 0 05/19/21 12:00 Pain Level 10 05/19/21 12:00
[2021-05-19] MEDS: Normal Saline 1,000 ML 1000 ML IV ×2 (12:21→13:20)
[2021-05-19] MEDS: Normal Saline Flush 10 ML SYR IVP (12:21)
[2021-05-19 12:43] LABS: Lipase 85 U/L (73-393)
[2021-05-19 12:49] LABS: Abs Immature Grans 0.03 10^3/uL (0.0-0.06); Absolute Basophil Count 0.04 10^3/uL (0.0-0.2); Absolute Eosinophil Count 0.02 10^3/uL (0.0-0.7); Absolute Lymphocyte Count 1.65 10^3/uL (1.2-3.4); Basophils % 0.4; Eosinophils % 0.2; Immature Grans % 0.3; Lymphocytes % 15.2; MCH 28.9 pg (27.0-33.0); MCHC 34.4 % (32.0-36.0); MCV 84.1 fL (80-95); MPV 9.5 fL (8.0-11.0); Monocytes % 6.5; Neutrophils % 77.4; Nucleated RBC 0 %; Platelet Count 435 10^3/uL (130-400); RBC 6.78 10^6/uL (4.36-5.78); RDW 12.3 % (11.8-14.1); RDW-SD 37.7 fL; WBC 10.85 10^3/uL (4.4-10.8)
[2021-05-19 12:51] LABS: Absolute Monocyte Count 0.71 10^3/uL (0.1-0.8)
[2021-05-19 12:53] LABS: ALT 37 U/L (16-63); AST 31 U/L (15-37); Albumin 5.5 g/dL (3.4-5.0); Alkaline Phosphatase 79 U/L (46-116); Anion Gap 10.1 mmol/L (3-11); BUN 29 mg/dL (7-18); Bilirubin, Total 0.9 mg/dL (0.2-1.0); CO2 39.9 mmol/L (21.0-32.0); CREATININE 1.9 mg/dL (0.70-1.30); Chloride 88 mmol/L (98-107); Estimated GFR 43.77 (mL/min/1.73m2); Glucose 146 mg/dL (74-106); Magnesium 2.2 mg/dL (1.8-2.4); Potassium 3.7 mmol/L (3.5-5.1); Sodium 138 mmol/L (136-145); Total Protein 9.9 g/dL (6.4-8.2)
[2021-05-19 12:54] LABS: HGB 19.6 g/dL (13.5-17.5)
[2021-05-19 12:57] LABS: Calcium 11.6 mg/dL (8.5-10.1)
[2021-05-19 13:13] LABS: Diff Comment RBC Morph Reviewed
[2021-05-19 13:14] LABS: RBC Morphology Normal
[2021-05-19] MEDS: Ondansetron 4 MG/2 ML VIAL IVP (13:20)
[2021-05-19] MEDS: LORazepam 2 MG/ML VIAL 1 MG IVP (13:20)
[2021-05-19] MEDS: Normal Saline 500 ML 1000 ML IV (14:03)
[2021-05-19 14:13] LABS: Source Nasal/Nares
[2021-05-19 15:45] LABS: HCT 42.9 % (40.0-50.0); HGB 14.6 g/dL (13.5-17.5); MCH 28.8 pg (27.0-33.0); MCV 84.6 fL (80-95); MPV 9.2 fL (8.0-11.0); RBC 5.07 10^6/uL (4.36-5.78); RDW 12.3 % (11.8-14.1); RDW-SD 37.5 fL; WBC 8.34 10^3/uL (4.4-10.8)
[2021-05-19 15:49] LABS: Anion Gap 4.3 mmol/L (3-11); BUN 23 mg/dL (7-18); CO2 34.7 mmol/L (21.0-32.0); CREATININE 1.1 mg/dL (0.70-1.30); Chloride 99 mmol/L (98-107); Glucose 97 mg/dL (74-106); Platelet Count 305 10^3/uL (130-400); Sodium 138 mmol/L (136-145)
[2021-05-19 15:58] LABS: Potassium 2.8 mmol/L (3.5-5.1)
[2021-05-19] MEDS: Potassium Chloride Liquid 20 MEQ PKT 40 MEQ PO (16:35)
[2021-05-19 17:58] LABS: COVID-19 PCR Negative (Negative)
== END 2021-05-19 16:32 | disposition home or self-care (01) ==
PROVIDERS: Emergency Provider Emergency Medicine
DX: E86.0 Dehydration (principal); E87.6 Hypokalemia; R25.2 Cramp and spasm; Z20.822 Contact with and (suspected) exposure to COVID-19; Z03.818 Encounter for observation for suspected exposure to other biological agents ruled out
CPT/HCPCS: 36415; 80048; 80053; 80307; 83690; 85027; 87635; 96361; 96374; 96375; 99284; 81003; 83735; 85025; 99283; J2060; J2405

== ENCOUNTER 2021-06-26 16:01 | Emergency (ER) | payer MEDICAID, SELFPAY ==
[2021-06-26] VITALS (51 sets, daily range): BP systolic 114–151; BP diastolic 74–96; PULSE 66–105; RESP 11–28; TEMP 36.6–37.1; O2SAT 94–100
--- NOTE | 2021-06-26 16:30 | DI.RAD_ITS ---
Exam(s) XR PORTABLE CHEST AP EXAM: XR PORTABLE CHEST AP CLINICAL HISTORY: cough, fever. TECHNIQUE: 2D digital imaging was performed. COMPARISON: CR XR CHEST 2V PA LATERAL from 06/03/2020 FINDINGS: Heart size is normal. The mediastinum is not widened. Main finding here is soft tissue air in the tissue planes on both sides of the visualize neck and als o mild pneumomediastinum. No infiltrates. No pleural effusions. No pneumothorax. IMPRESSION: Pneumomediastinum as well as soft tissue air in both sides of the visualized neck. There is no pneum othorax. No infiltrates. No pleural effusions. Close follow-up recommended. DATA REPOSITORY: RADIATION DOSE DELIVERED: All CT scans at this facility use at least one of these dose optimization techniques: automated exposure control; mA and/or kV adjustment per patient size (includes targeted e xams where dose is matched to clinical indication); or iterative reconstruction.
--- NOTE | 2021-06-26 16:30 | RT.EKG_ITS ---
APPROVED REPORT Exam: Resting ECG Reason for Exam: chest pain Patient Location: E HR:79 bpm ECG Measurements Heart Rate 79 AXIS NV 152 P 81 QRSd 95 QRS 0 QT 554 T [id number] QTc 634 Conclusion Sinus rhythm...normal P axis Biatrial enlargement Nonspecific T abnormalities, inferior leads...T <-0.10mV, II III aVF ST elev, probable normal early repol pattern.
[2021-06-26] MEDS: Normal Saline 1,000 ML 1000 ML IV (16:43)
--- NOTE | 2021-06-26 16:48 | W.ED.GENAD ---
Discharge Plan Disposition Patient Disposition: [facility] Condition: Critical Discharge Details Clinical Impression: Acute dehydration, Alkalosis, metabolic, Acute hypokalemia, Boerhaave syndrome Primary Care Provider: Suellen,Local ED Provider: Tamika Ring Home Meds and New Rx's Prescriptions: Continued methadone 10 mg/mL Solution 50 mg IM DAILY RF: 0 ondansetron HCl [Zofran] 4 mg tablet 4 mg PO Q8H PRN (Reason: nausea and vomiting) Qty: 7 RF: 0 Medical Decision Making Chest x-ray with evidence of pneumomediastinum, CT ordered to evaluate for esophageal perforation, concern for esophageal perforation on CT scan per virtual radiology, I discussed with disease radiology, Dr. Winnie VILLALPANDO Patient has remained hemodynamically stable, received Zosyn and 2 L of LR, 200 cc infusion of LR Hypokalemic, 2.5 initially, improved to 3.9 after 20 mEq of IV potassium, suspect possible hemolysis Bicarb elevated at 44, BUN of 60, concern for dehydration, VBG with bicarb 36, pH is 7.54, metabolic alkalosis, pH improved on reassessment Hypokalemia with T wave changes and QTC prolongation, remains on telemetry monitoring, improved EKG on reassessment after p.o. potassium Patient is alert and oriented, he is full CODE STATUS, he is willing to be transferred to [facility] as we do not have surgical capacity for this patient at this emergency room and he needs higher level of care than we can provide I spoke with Dr. Pedro, on-call at [facility], he feels the patient needs a swallow study which are unable to perform at this time The ER staff was contacted and will evaluate the patient with the assistance of CT surgery patient has been accepted to the emergency room at 2130, ambulance transport is in route Of note, patient is Covid positive and unvaccinated HPI General Mode of arrival: ambulatory. Date/Time Provider Initiated Documentation: 06/26/21 16:31. Limitations to Documentation: no limitations. Information obtained by: patient. HPI Narrative: This 25-year-old male presents with vomiting for the past 48 hours. He denies any current chest pain but has intermittent chest pain and neck pain. He states that the vomiting started prior to his discomfort. He presents secondary to persistent vomiting and discomfort. He denies any weakness but does feel lightheaded. He is an IV drug abuser. He last used fentanyl this morning reportedly. He denies any diarrhea. He denies blood in vomitus. He had subjective fever and chills. He denies known sick contacts. He is not Covid vaccinated. Denies any urinary symptoms. Has not been able to tolerate anything p.o. Denies any additional illicit drug use. Denies recent alcohol use. Denies any injuries. Related Data Home Medications Medication Instructions Recorded Confirmed ondansetron HCl [Zofran] 4 mg PO Q8H PRN #7 tab 05/19/21 methadone 50 mg IM DAILY 06/26/21 06/26/21 Previous Rx's Medication Instructions Recorded ondansetron HCl [Zofran] 4 mg PO Q8H PRN #7 tab 05/19/21 Allergies Allergy/AdvReac Type Severity Reaction Status Date / Time lactose Allergy Mild Other (See Unverified 06/26/21 16:21 Comment) General Stated Complaint: Abd Prob NATALIE: 3 Review of Systems All systems reviewed & are unremarkable except as noted in HPI and below PFSH Active Problem List (Updated 06/26/21 @ 23:27 by YU Sands) Acute dehydration (Acute) Alkalosis, metabolic (Acute) Acute hypokalemia (Acute) Boerhaave syndrome (Acute) Medical History (Updated 06/26/21 @ 23:27 by YU Sands) ADHD Asthma Bipolar disorder Schizoaffective disorder Surgical History No significant past surgical history Social History Smoking/Tobacco Use Status: Current every day Tobacco Type: cigarettes Smoking risk assessment performed?: Yes Alcohol Intake: current Alcohol Intake frequency: a few times a week Alcohol type: hard liquor Drug use: Daily Substance use type: marijuana and opiates Do you feel safe at home: Yes Do you feel safe in your relationship?: Yes Exam Const General: ill appearing Nutritional Appearance: thin Orientation: alert and oriented x3 HENMT Other: moist mucous membranes, uvula midline Eyes Pupils: PERRL Neck Other: Diffuse tenderness, no crepitus, no stridor Chest Chest: normal inspection of the chest Resp Effort & Inspection: normal respiratory effort Auscultation: clear to auscultation bilaterally Cardio Rate: regular rate Rhythm: regular rhythm Other: No murmur GI Other: No thoracic crepitus, no abdominal tenderness or crepitus Skin General skin exam: no rashes or lesions noted Neuro General: patient alert and patient oriented x3 Extrem Other: No petechiae or purpura lesions Course Vital Signs Vital signs: Vital Signs Temperature 36.6 C 06/26/21 16:16 Pulse 90 06/26/21 16:16 Respiratory Rate 18 06/26/21 16:16 Blood Pressure 135/95 H 06/26/21 16:16 Pulse Oximetry 98 06/26/21 16:16 Temperature 36.6 C 06/26/21 16:16 Temperature Source Temporal Artery Scan 06/26/21 16:16 Pulse 82 06/26/21 16:46 Pulse 81 06/26/21 16:46 Respiratory Rate 19 06/26/21 16:46 Respiratory Effort 06/26/21 16:25 Blood Pressure 131/78 06/26/21 16:46 Blood Pressure Mean 91 06/26/21 16:46 Blood Pressure Position Supine 06/26/21 16:16 Pulse Oximetry 96 06/26/21 16:46 Oxygen Delivery Method Room Air 06/26/21 16:16 Oxygen Flow Rate 0 06/26/21 16:16 Pain Level 7 06/26/21 16:16 Critical Care Time Critical Care Time Critical Care Time: Yes Attestation: Telemetry monitoring, IV potassium resuscitation, surgical consultation, radiology evaluation, laboratory evaluation PAWSS Have you Been Recently Intoxicated or Drunk Within the Last 30 days?: No Have you Ever Experienced Previous Episodes of Alcohol Withdrawal?: No Have you ever Experienced Withdrawal Seizures?: No Have you ever Experienced Delirium Tremens(DT)s?: No Have you ever undergone Alcohol Rehabilitation Treatment (i.e, inpt ot outpatient treatment programs)?: No Have you ever Combined Alcohol with other Downers within the last 90 days?: Yes Result: 0
[2021-06-26 16:58] LABS: Absolute Basophil Count 0.01 10^3/uL (0.0-0.2); Absolute Eosinophil Count 0.04 10^3/uL (0.0-0.7); Absolute Lymphocyte Count 1.31 10^3/uL (1.2-3.4); Absolute Monocyte Count 1.15 10^3/uL (0.1-0.8); Absolute Neutrophil Count 9.94 10^3/uL (1.2-6.7); Basophils % 0.1; Eosinophils % 0.3; HGB 17.7 g/dL (13.5-17.5); Immature Grans % 0.8; Lymphocytes % 10.4; MCH 28.5 pg (27.0-33.0); MCHC 36.1 % (32.0-36.0); MCV 78.9 fL (80-95); MPV 9.8 fL (8.0-11.0); Monocytes % 9.2; Neutrophils % 79.2; Nucleated RBC 0 %; Platelet Count 313 10^3/uL (130-400); RDW 11.7 % (11.8-14.1); RDW-SD 33.2 fL; WBC 12.55 10^3/uL (4.4-10.8)
[2021-06-26 17:01] LABS: RBC 6.21 10^6/uL (4.36-5.78)
[2021-06-26 17:12] LABS: ALT 66 U/L (16-63); AST 87 U/L (15-37); Albumin 4.3 g/dL (3.4-5.0); Alkaline Phosphatase 84 U/L (46-116); Anion Gap 4.8 mmol/L (3-11); BUN 70 mg/dL (7-18); Bilirubin, Total 0.8 mg/dL (0.2-1.0); CO2 44.2 mmol/L (21.0-32.0); CREATININE 2.6 mg/dL (0.70-1.30); Calcium 10.1 mg/dL (8.5-10.1); Chloride 73 mmol/L (98-107); Estimated GFR 30.48 (mL/min/1.73m2); Glucose 176 mg/dL (74-106); Lipase 112 U/L (73-393); Total Protein 8.9 g/dL (6.4-8.2); Troponin I < 0.05 ng/mL (<0.06)
[2021-06-26 17:14] LABS: Potassium 2.5 mmol/L (3.5-5.1); Sodium 122 mmol/L (136-145)
[2021-06-26 17:52] LABS: Source Nasal/Nares
[2021-06-26 17:54] LABS: HCO3 (Venous) 51 mmol/L (23-28); O2 Sat (Venous) 67 %; TCO2 (Venous) 43 mmol/L (24-29); pH (Venous) 7.54 (7.31-7.41); pO2 (Venous) 33 mmHg
[2021-06-26 17:57] LABS: BE (Venous) > 15 mmol/L (-2-3); pCO2 (Venous) 61 mmHg (41-51)
[2021-06-26] MEDS: POTASSIUM CHLORIDE 20 MEQ/100 ML BAG 50 MEQ IVPB (18:00)
[2021-06-26] MEDS: Metoclopramide 10 MG/2 ML VIAL IVP (18:00)
[2021-06-26] MEDS: Lactated Ringers 1,000 ML 1000 ML IV (18:00)
[2021-06-26 18:42] LABS: COVID-19 PCR POSITIVE (Negative)
--- NOTE | 2021-06-26 19:00 | RT.EKG_ITS ---
APPROVED REPORT Exam: Resting ECG Reason for Exam: chest pain Patient Location: E HR:67 bpm ECG Measurements Heart Rate 67 AXIS NC 149 P 77 QRSd 89 QRS 0 QT 471 T [id number] QTc 499 Conclusion Sinus rhythm...normal P axis, V-rate 60- 99 Nonspecific T abnormalities, inferior leads. ST elev, probable normal early repol pattern. Prolonged QT interval...QTc >488mS
[2021-06-26 19:02] LABS: HCO3 (Venous) 50 mmol/L (23-28); O2 Sat (Venous) 78 %; TCO2 (Venous) 43 mmol/L (24-29); pH (Venous) 7.49 (7.31-7.41); pO2 (Venous) 43 mmHg
[2021-06-26 19:03] LABS: BE (Venous) > 15 mmol/L (-2-3)
[2021-06-26 19:05] LABS: pCO2 (Venous) 66 mmHg (41-51)
[2021-06-26 19:12] LABS: Anion Gap 0.8 mmol/L (3-11); BUN 62 mg/dL (7-18); CO2 43.2 mmol/L (21.0-32.0); CREATININE 2.1 mg/dL (0.70-1.30); Calcium 8.7 mg/dL (8.5-10.1); Chloride 80 mmol/L (98-107); Glucose 103 mg/dL (74-106)
[2021-06-26 19:13] LABS: Potassium 3.9 mmol/L (3.5-5.1)
[2021-06-26 19:14] LABS: Sodium 124 mmol/L (136-145)
--- NOTE | 2021-06-26 19:42 | DI.VRAD_ITS ---
Addendum created by Ryan Castanon MD on 06/26/2021 7:50:27 PM EST: THIS REPORT CONTAINS FINDINGS THAT MAY BE CRITICAL TO PATIENT CARE. The findings were verbally communicated via telephone conference with Tamika Ring at 7:49 PM EST on 06/26/2021. The findings were acknowledged and understood. Initial report created on 06/26/2021 7:42:06 PM EST: PROCEDURE INFORMATION: Exam: XR Chest Exam date and time: 06/26/2021 4:48 PM Age: 25 years old Clinical indication: Other: Cough, fever TECHNIQUE: Imaging protocol: XR of the chest. Views: 1 view. COMPARISON: CR XR CHEST 2V PA LATERAL 06/03/2020 2:08 PM FINDINGS: Lungs: Unremarkable. No consolidation. Pleural spaces: Negative for pneumothorax or pleural effusion. Heart/Mediastinum: Mild pneumomediastinum. Normal mediastinal contours. Microcardia noted. Bones/joints: Unremarkable. Soft tissues: Moderate soft tissue air is observed in tissue planes throughout the lower neck. IMPRESSION: Pneumomediastinum. Soft tissue emphysema in the neck. Mediastinal source is likely, with air dissecting into tissue planes in the neck. Dictated and Authenticated by: Ryan Castanon MD. Ordering:JACQUI Lundberg MD
[2021-06-26] MEDS: Omnipaque 350 MG/ML 100 ML BTL IJ (20:17)
[2021-06-26] MEDS: Normal Saline - Diluent 50 ML VIAL IV (20:17)
[2021-06-26] MEDS: Normal Saline Flush 10 ML SYR IVP (20:17)
--- NOTE | 2021-06-26 20:20 | DI.CT_ITS ---
Exam(s) CT CHEST W EXAM: CT CHEST W CLINICAL HISTORY: possible boerhaave's. TECHNIQUE: Multi planar reconstructions were performed. CONTRAST MATERIAL: Omnipaque 350; 75 cc COMPARISON: CR,XR XR PORTABLE CHEST AP from 06/26/2021 CR,XR XR PORTABLE CHEST AP from 06/26/2021 FINDINGS: CHEST: There is a paucity of subcutaneous fat in this patient LUNGS: There is pneumomediastinum and air dissects into the tissue planes of both sides the neck, sli ghtly more prominent on the right side. . There is also air within the spinal canal surrounding the epidural sac, more so on the right than left side. Lungs are clear. No infiltrates nor pleural effusions. No pneumothorax. No nodules. MEDIASTINUM: There is no hilar nor mediastinal adenopathy. Visualized thyroid unremarkable. CARDIAC: Heart size is normal. There is no pericardial effusion.No evidence of pneumopericardium. T horacic aorta is intact. No dissection. No pericardial effusion VISUALIZED UPPER ABDOMEN:There are no significant adrenal masses. OSSEOUS: No significant osseous lesions.. IMPRESSION: 1. There is pneumomediastinum which is seen dissecting also into the neck, chest, epidural space. So urce of the mediastinum is not definitely identified. There is no evidence of abnormal collection ar ound the nondistended esophagus. 2. Lungs are clear. No infiltrates. No pleural effusions. No pneumothorax. 3. There is very minimal subcutaneous fat in this patient. RADIATION DOSE DELIVERED: 378.64mGy.cm Total DLP DATA REPOSITORY: All CT scans at this facility are submitted to the National Radiology Data Registry (NRDR) Dose Index Registry (DIR) with the [employer] ([employer]). RADIATION OPTIMIZATION: All CT scans at this facility use at least one of these dose optimization te chniques: automated exposure control; mA and/or kV adjustment per patient size (includes targeted exa ms where dose is matched to clinical indication); or iterative reconstruction.
[2021-06-26] MEDS: PIPERACILLIN/TAZO 3.375 GM in Normal Saline 50 ML IVPB (20:34)
[2021-06-26 20:36] LABS: Bilirubin Negative (Negative); Blood Small (Negative); Clarity Clear (Clear); Glucose Negative (Negative); Ketones Trace mg/dL (Negative); Leukocyte Esterase Negative (Negative); Nitrite Negative (Negative); Specific Gravity 1.025 (1.005-1.025); Urobilinogen 0.2 EU/dL (Up TO 0.2)
--- NOTE | 2021-06-26 20:39 | DI.VRAD_ITS ---
PROCEDURE INFORMATION: Exam: CT Chest With Contrast; Diagnostic Exam date and time: 06/26/2021 7:54 PM Age: 25 years old Clinical indication: Other: Possible boerhaave's TECHNIQUE: Imaging protocol: Diagnostic computed tomography of the chest with contrast. 3D rendering (Not supervised by radiologist): MIP and/or 3D reconstructed images were created by the technologist. Radiation optimization: All CT scans at this facility use at least one of these dose optimization techniques: automated exposure control; mA and/or kV adjustment per patient size (includes targeted exams where dose is matched to clinical indication); or iterative reconstruction. Contrast material: OMNIPAQUE 350; Contrast volume: 70 ml; Contrast route: INTRAVENOUS (IV); COMPARISON: XR PORTABLE CHEST AP 06/26/2021 6:21 PM FINDINGS: Thyroid: Normal thyroid. Lungs: Lungs are clear and well expanded. Negative for consolidation or collapse. No significant ground-glass opacity. Trachea and mainstem bronchi appear intact and are unremarkable. Negative for bronchiectasis. No significant endobronchial mucus. Pleural spaces: Unremarkable. No pneumothorax. No pleural effusion. Heart: Unremarkable. No cardiomegaly. No pericardial effusion. Mediastinal space: The thoracic esophagus is collapsed and unremarkable. Pneumomediastinum is present. The most inferior extent of the pneumomediastinum is around the distal esophagus, near the gastroesophageal junction. Aorta: Normal thoracic aorta, without dissection or aneurysm. No significant plaque. Other arteries: Normal origins of the arch vessels. Visualized proximal vertebral arteries appear normal. Lymph nodes: Unremarkable. No enlarged lymph nodes. Liver: Mild hepatic steatosis noted. Intraperitoneal space: Negative for pneumoperitoneum in the upper abdomen. Bones/joints: Negative for compression fracture. Sternum is intact. Rib fractures observed. Soft tissues: Soft tissue air dissects from the mediastinum into fascial planes throughout the neck. Mild soft tissue air noted in the retropectoral right chest and extending into the right axilla. Foci of air dissect into the epidural space in the spinal canal, notably at the right in C7 level. IMPRESSION: 1. Pneumomediastinum, dissecting into the neck, chest, and epidural space. 2. Source is not definitively identified. Micro perforation at the distal thoracic esophagus is likely. No specific inflammatory change or fluid collections are observed around the esophagus. 3. Negative for pneumothorax. Dictated and Authenticated by: Ryan Castanon MD. Ordering:JACQUI Lundberg MD
[2021-06-26 20:48] LABS: Bacteria Negative HPF (Negative); C & S Indicated? No; Casts Negative LPF (Negative); Crystals Negative HPF (Negative); Epithelial Cells Few HPF (Negative); Mucus Negative (Negative); WBC 0-2 HPF (0-5)
[2021-06-26] MEDS: Lactated Ringers 1,000 ML 200 ML IV (21:25)
[2021-06-26] MEDS: HYDROmorphone 2 MG/ML VIAL 1 MG IVP (22:11)
[2021-06-26 22:12] LABS: *AMPHETAMINES SCREEN URINE Negative (Negative); *BARBITURATES SCREEN URINE Negative (Negative); *BENZODIAZEPINES SCREEN URINE Negative (Negative); Cannabinoids THC Positive (Negative); Cocaine Screen,Urine Positive (Negative); METHADONE URINE SCREEN Negative (Negative); OPIATES URINE SCREEN Negative (Negative)
[2021-06-26 22:14] LABS: Tricyclic Antidepressants Negative (Negative)
[2021-06-28 16:22] LABS: COVID-19 RT-PCR UVMMC Result Positive (Negative)
== END 2021-06-26 22:15 | disposition short-term general hospital (02) ==
PROVIDERS: Emergency Provider Physician Assistant
DX: K22.3 Perforation of esophagus (principal); E87.3 Alkalosis; E87.6 Hypokalemia; E86.0 Dehydration
CPT/HCPCS: 36415; 80048; 80053; 80307; 82805; 83690; 87635; 93005; 96361; 96365; 96366; 96367; 96375; 99291; U0003; 71045; 71260; 81003; 81015; 83605; 83735; 84443; 84484; 85025; 93010; J2543; J2765; J3480; J3490

== ENCOUNTER 2021-06-27 12:24 | Observation (INO) | payer MEDICAID, SELFPAY ==
--- NOTE | 2021-06-27 13:05 | W.PM.HP.N ---
Date of service: 06/27/21 Time of Service: 13:05 Assessment and Plan Assessment and plan (1) COVID-19: Start date: 06/27/21 Start time: 13:28 Status: Acute Assessment and plan: Transferred from [facility] for Covid 19. He has no signs or sx. He is not requiring oxygen. LSC, no SOB. Due to no acute sx he is being discharged home. He has been educated on wearing a mask at all times. Avoiding public places. No leaving his designated place of living area for 10 days. Unsure if previous sx therefore due to found yesterday will count 06/26 as start of 10 day quarantine. He needs to avoid all public places and wear a mask at all times when around people. Will give IS and acapella. Afebirle, LSC, not requiring oxygen. He did have a barium swallow that was negative at [facility]. discussed with Dr. Taylor History of Present Illness History of Present Illness Chief Complaint: Esophegeal pain, covid positive Narrative: Patient presented to [facility] yesterday with c/o n/v x 48 hours. Imaging revealed questionable esophageal perforation via CT scan in the ED. He was sent to [facility] ED for further evaluation. He was asked to be transferred back to [facility] for an incidental finding of positive Covid by the ED at [facility]. His barium swallow at [facility] was negative for perforation. He no longer has n/v. He is tolerating food. He has no nausea and vomiting. He is not requiring oxygen. LS. He is ambulatory around room. He can be sent home. Will send with IS, acapella. Recommended he wear Mask at all times an avoid public places. He is asymptomatic with covid. Unsure without sx when his true exposure was therefore will start 10 day quarantine as of 06/26. He can come off of precautions 06/30. Until masks at all times around others, if he needs to be around others. He did not need to be admitted for COVID as he is not exhibiting any symptoms and therefore will be discharged. Denies CP, SOB, n/v/d. Review of Systems All systems reviewed & are unremarkable except as noted in HPI and below [facility] Active Problem List (Updated 06/27/21 @ 13:28 by Ai Foulke, [employer]) COVID-19 (Acute) Acute dehydration (Acute) Alkalosis, metabolic (Acute) Acute hypokalemia (Acute) Boerhaave syndrome (Acute) Medical History (Updated 06/27/21 @ 13:28 by Ai Gordon NP) ADHD Asthma Bipolar disorder Schizoaffective disorder Surgical History No significant past surgical history Social History Smoking/Tobacco Use Status: Current every day Tobacco Type: cigarettes Smoking risk assessment performed?: Yes Alcohol Intake: current Alcohol Intake frequency: a few times a week Alcohol type: hard liquor Drug use: Daily Substance use type: marijuana and opiates Do you feel safe at home: Yes Do you feel safe in your relationship?: Yes Meds Allergies and Home Medications Allergies Allergy/AdvReac Type Severity Reaction Status Date / Time lactose Allergy Mild Other (See Unverified 06/26/21 16:21 Comment) Home Medications Medication Instructions Recorded Confirmed Type ondansetron HCl [Zofran] 4 mg PO Q8H PRN #7 tab 05/19/21 Rx methadone 50 mg IM DAILY 06/26/21 06/26/21 History Exam Const General: cooperative, comfortable and no acute distress Nutritional Appearance: thin Orientation: alert, awake and oriented x3 HENMT Head: normal to inspection, normocephalic and atraumatic Eyes Eyelids: eyelids normal Pupils: PERRL EOM: EOM intact bilaterally Neck Neck: normal visual inspection and no JVD Lymphatic: no lymphadenopathy noted Resp Effort & Inspection: normal respiratory effort and able to speak in complete sentences Auscultation: clear to auscultation bilaterally Cardio Jugular venous pressure: no JVD Rhythm: regular rhythm Heart Sounds: S1 normal GI Auscultation: normal bowel sounds General: No CVA tenderness and deferred Skin General skin exam: no rashes or lesions noted Neuro General: patient alert, patient awake and patient oriented x3 Cognition: normal cognition Speech: speech normal Gait: normal gait Extrem General: normal to inspection, full ROM and no clubbing, cyanosis or edema Results Labs Result diagrams: 06/27/21 12:34 06/27/21 12:35 Labs: Laboratory Results - last 24 hr 06/27/21 06/27/21 12:35 12:35 Sodium Cancelled Potassium Cancelled Chloride Cancelled Carbon Dioxide Cancelled Anion Gap Cancelled BUN Cancelled Creatinine Cancelled Estimated GFR/1.73 m2 Cancelled Glucose Cancelled Calcium Cancelled Magnesium Cancelled Ferritin Cancelled C-Reactive Protein Cancelled
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
[2021-06-27 14:44] VITALS: BP 146/93; PULSE 71; RESP 16; TEMP 35.7; O2SAT 93
== END 2021-06-27 14:50 | disposition home or self-care (01) ==
PROVIDERS: Admitting Provider Internal Medicine; Visit Provider Internal Medicine
DX: U07.1 COVID-19 (principal); R11.2 Nausea with vomiting, unspecified; E86.0 Dehydration; E87.3 Alkalosis; E87.6 Hypokalemia; J45.909 Unspecified asthma, uncomplicated; M31.9 Necrotizing vasculopathy, unspecified; F90.9 Attention-deficit hyperactivity disorder, unspecified type; F25.9 Schizoaffective disorder, unspecified
CPT/HCPCS: 80048; 82728; 83735; 85025; 86140; 99218

== ENCOUNTER 2023-04-19 22:27 | Emergency (ER) | payer SELFPAY ==
[2023-04-19] VITALS (16 sets, daily range): BP systolic 129–163; BP diastolic 74–105; PULSE 91–131; RESP 13–26; TEMP 36.6; O2SAT 95–99
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
[2023-04-19] MEDS: HYDROmorphone 2 MG/ML SYR 1 MG IVP (22:54)
[2023-04-19 22:55] LABS: Abs Immature Grans 0.03 10^3/uL (0.0-0.06); Absolute Basophil Count 0.06 10^3/uL (0.0-0.2); Absolute Eosinophil Count 0.01 10^3/uL (0.0-0.7); Absolute Lymphocyte Count 3.05 10^3/uL (1.2-3.4); Absolute Monocyte Count 0.81 10^3/uL (0.1-0.8); Absolute Neutrophil Count 5.36 10^3/uL (1.2-6.7); Basophils % 0.6; Eosinophils % 0.1; HCT 45.4 % (40.0-50.0); HGB 15.1 g/dL (13.5-17.5); Immature Grans % 0.3; Lymphocytes % 32.7; MCHC 33.3 % (32.0-36.0); MCV 84 fL (80-95); MPV 8.8 fL (8.0-11.0); Monocytes % 8.7; Neutrophils % 57.6; Platelet Count 390 10^3/uL (130-400); RDW 12.9 % (11.8-14.1); RDW-SD 39.4 fL; WBC 9.32 10^3/uL (4.4-10.8)
[2023-04-19] MEDS: ceFAZolin 2 GM/50 ML BAG IVPB (22:56)
[2023-04-19 23:05] LABS: ALT 53 U/L (16-63); AST 30 U/L (15-37); Albumin 3.9 g/dL (3.4-5.0); Alkaline Phosphatase 60 U/L (46-116); BUN 12 mg/dL (7-18); Bilirubin, Total 0.4 mg/dL (0.2-1.0); CREATININE 1.3 mg/dL (0.70-1.30); Calcium 9.5 mg/dL (8.5-10.1); Chloride 100 mmol/L (98-107); Glucose 117 mg/dL (74-106); Potassium 3.5 mmol/L (3.5-5.1); Sodium 139 mmol/L (136-145); Total Protein 8.3 g/dL (6.4-8.2)
[2023-04-19 23:08] LABS: ETHANOL BLOOD < 3.0 mg/dL (<10)
[2023-04-19] MEDS: Ketamine 500 MG/10 ML VIAL 20 MG IVP (23:20)
[2023-04-19] MEDS: ACETAMINOPHEN 1,000 MG/100 ML BTL 400 MG IVPB (23:22)
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
[2023-04-20] VITALS: PULSE 91; RESP 18; O2SAT 96
[2023-04-20 00:01] VITALS: BP 148/99; PULSE 94; RESP 10; O2SAT 96
[2023-04-20] MEDS: fentaNYL 100 MCG/2 ML VIAL IVP (00:03)
[2023-04-20 00:10] VITALS: PULSE 93; RESP 19; O2SAT 96
[2023-04-20] MEDS: fentaNYL 100 MCG/2 ML VIAL (01:15)
== END 2023-04-20 00:22 | disposition short-term general hospital (02) ==
LOC: ER 23:42
PROVIDERS: Emergency Provider Student in an Organized Health Care Education/Training Program
DX: S82.251B Displaced comminuted fracture of shaft of right tibia, initial encounter for open fracture type I or II (principal); W32.0XXA Accidental handgun discharge, initial encounter; Y93.89 Activity, other specified; Y92.013 Bedroom of single-family (private) house as the place of occurrence of the external cause; Y99.9 Unspecified external cause status; F17.210 Nicotine dependence, cigarettes, uncomplicated
CPT/HCPCS: 29505; 80053; 86850; 86900; 86901; 88305; 90472; 96365; 96367; 96375; 99285; 73590; 80320; 85025; J0131; J0690; J1170; J3010

== ENCOUNTER 2023-06-28 08:30 | Emergency (ER) | payer SELFPAY ==
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
[2023-06-28 09:02] LABS: Lactate 1.4 mmol/L (0.6-1.4)
[2023-06-28 09:03] LABS: Abs Immature Grans 0.02 10^3/uL (0.0-0.06); Absolute Basophil Count 0.02 10^3/uL (0.0-0.2); Absolute Eosinophil Count 0.01 10^3/uL (0.0-0.7); Absolute Lymphocyte Count 0.94 10^3/uL (1.2-3.4); Absolute Neutrophil Count 6.33 10^3/uL (1.2-6.7); Basophils % 0.3; Eosinophils % 0.1; HCT 44.2 % (40.0-50.0); HGB 14.7 g/dL (13.5-17.5); Immature Grans % 0.3; Lymphocytes % 12.3; MCHC 33.3 % (32.0-36.0); MCV 81 fL (80-95); MPV 8.5 fL (8.0-11.0); Monocytes % 3.9; Neutrophils % 83.1; Platelet Count 393 10^3/uL (130-400); RBC 5.45 10^6/uL (4.36-5.78); RDW 12.6 % (11.8-14.1); RDW-SD 36.9 fL; WBC 7.62 10^3/uL (4.4-10.8)
[2023-06-28 09:08] LABS: ESR 28 mm/hr (0-15)
[2023-06-28 09:28] LABS: ALT 121 U/L (16-63); AST 75 U/L (15-37); Albumin 3.6 g/dL (3.4-5.0); Alkaline Phosphatase 65 U/L (46-116); Anion Gap 9.3 mmol/L (3-11); BUN 9 mg/dL (7-18); Bilirubin, Total 0.4 mg/dL (0.2-1.0); CO2 29.7 mmol/L (21.0-32.0); CREATININE 0.9 mg/dL (0.70-1.30); Calcium 10.1 mg/dL (8.5-10.1); Chloride 99 mmol/L (98-107); Glucose 105 mg/dL (74-106); Potassium 4.1 mmol/L (3.5-5.1); Sodium 138 mmol/L (136-145); Total Protein 9.3 g/dL (6.4-8.2)
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
[2023-06-28 09:49] LABS: Procalcitonin 0.1 ng/mL
[2023-06-28 10:08] LABS: D-Dimer 1565 ng/mlFEU (<500)
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
[2023-06-28 11:00] VITALS: BP 163/92; PULSE 107; RESP 20; TEMP 37.2; O2SAT 98
[2023-06-28 11:32] LABS: INR 1.1 (0.9-1.1); PTT Activated 34.5 sec (23.6-32.8); Prothrombin Time 11.2 sec (9.1-11.1)
[2023-06-28] MEDS: Enoxaparin 100 MG/ML SYR SC (12:19)
== END 2023-06-28 12:33 | disposition home or self-care (01) ==
PROVIDERS: Emergency Provider Student in an Organized Health Care Education/Training Program
DX: M79.604 Pain in right leg (principal); I82.431 Acute embolism and thrombosis of right popliteal vein; I82.451 Acute embolism and thrombosis of right peroneal vein; I82.441 Acute embolism and thrombosis of right tibial vein; S82.301A Unspecified fracture of lower end of right tibia, initial encounter for closed fracture; X58.XXXA Exposure to other specified factors, initial encounter
CPT/HCPCS: 36415; 80053; 84145; 85652; 96372; 96374; 99285; 73590; 73610; 83605; 85025; 85379; 85610; 85730; 86140; 93971; J1650

== ENCOUNTER 2023-08-04 01:22 | Emergency (ER) | payer SELFPAY ==
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
[2023-08-04 01:36] VITALS: BP 149/81; PULSE 103; RESP 16; TEMP 37; O2SAT 98
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
[2023-08-04 03:39] VITALS: RESP 16; O2SAT 97
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
--- NOTE | 2023-08-04 05:30 | NUR.NOTE ---
Referral to Care Management to help patient get re-established at [facility]. Help with transportation to appts. etc. Patient needs [facility] f/u toña.Nursing Note:
[2023-08-04 06:00] VITALS: BP 136/84; PULSE 95; RESP 18; O2SAT 99
== END 2023-08-04 06:04 | disposition home or self-care (01) ==
PROVIDERS: Emergency Provider Emergency Medicine
DX: S89.101 Unspecified physeal fracture of lower end of right tibia (principal); F17.210 Nicotine dependence, cigarettes, uncomplicated; Z86.718 Personal history of other venous thrombosis and embolism; X58.XXXD Exposure to other specified factors, subsequent encounter
CPT/HCPCS: 99283; 73590; 73630

== ENCOUNTER 2023-09-07 11:28 | Emergency (ER) | payer SELFPAY ==
[2023-09-07 11:52] VITALS: BP 124/72; PULSE 104; RESP 16; TEMP 36.3; O2SAT 94
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
[2023-09-07 13:19] LABS: Abs Immature Grans 0.02 10^3/uL (0.0-0.06); Absolute Basophil Count 0.02 10^3/uL (0.0-0.2); Absolute Lymphocyte Count 1.32 10^3/uL (1.2-3.4); Absolute Monocyte Count 0.38 10^3/uL (0.1-0.8); Basophils % 0.3; HCT 34.7 % (40.0-50.0); HGB 11.2 g/dL (13.5-17.5); Immature Grans % 0.3; Lactate 0.8 mmol/L (0.6-1.4); Lymphocytes % 20.2; MCH 25.9 pg (27.0-33.0); MCHC 32.3 % (32.0-36.0); MCV 80 fL (80-95); MPV 8.5 fL (8.0-11.0); Monocytes % 5.8; Neutrophils % 73.4; Platelet Count 331 10^3/uL (130-400); RBC 4.32 10^6/uL (4.36-5.78); RDW 13.6 % (11.8-14.1); RDW-SD 39.8 fL; WBC 6.54 10^3/uL (4.4-10.8)
[2023-09-07 13:24] LABS: ESR 37 mm/hr (0-15)
[2023-09-07 13:42] LABS: ALT 35 U/L (16-63); AST 24 U/L (15-37); Albumin 3.2 g/dL (3.4-5.0); Alkaline Phosphatase 48 U/L (46-116); Anion Gap 8.5 mmol/L (3-11); BUN 9 mg/dL (7-18); Bilirubin, Total 0.2 mg/dL (0.2-1.0); C-Reactive Protein < 0.50 mg/dL (<or=0.5); CO2 27.5 mmol/L (21.0-32.0); CREATININE 0.7 mg/dL (0.70-1.30); Calcium 9.1 mg/dL (8.5-10.1); Chloride 104 mmol/L (98-107); Estimated GFR 129.52 (mL/min/1.73m2); Glucose 109 mg/dL (74-106); Sodium 140 mmol/L (136-145)
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
[2023-09-07 14:21] LABS: Procalcitonin < 0.1 ng/mL
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
--- NOTE | 2023-09-07 17:35 | NUR.NOTE ---
Nursing Note: patient reported to this nurse he call [phone] and was able to get a place to stay for the next few weeks and he also has obtained his own ride to [facility] appointment on WEd
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
== END 2023-09-07 18:21 | disposition home or self-care (01) ==
PROVIDERS: Physician Assistant; Emergency Provider Physician Assistant
DX: M25.571 Pain in right ankle and joints of right foot (principal); F15.90 Other stimulant use, unspecified, uncomplicated; F17.210 Nicotine dependence, cigarettes, uncomplicated; Z79.01 Long term (current) use of anticoagulants; Z96.60 Presence of unspecified orthopedic joint implant; Z59.00 Homelessness unspecified
CPT/HCPCS: 36415; 80053; 84145; 85652; 87040; 99284; 73590; 73610; 73700; 83605; 85025; 86140

== ENCOUNTER 2023-11-29 16:24 | Emergency (ER) | payer SELFPAY ==
[2023-11-29] VITALS (25 sets, daily range): BP systolic 112–145; BP diastolic 54–81; PULSE 93–153; RESP 10–23; TEMP 37.4; O2SAT 95–100
--- NOTE | 2023-11-29 16:45 | RT.EKG_ITS ---
APPROVED REPORT Exam: Resting ECG Reason for Exam: tachycardia Patient Location: E HR:118 bpm ECG Measurements Heart Rate 118 AXIS OR 169 P 61 QRSd 77 QRS 19 QT 325 T 41 QTc 456 Conclusion Sinus tachycardia 118 no stemi
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
[2023-11-29 17:34] LABS: BE (Venous) 3 mmol/L (-2-3); HCO3 (Venous) 27 mmol/L (23-28); O2 Sat (Venous) 97 %; TCO2 (Venous) 25 mmol/L (24-29); pCO2 (Venous) 43 mmHg (41-51); pH (Venous) 7.41 (7.31-7.41); pO2 (Venous) 89 mmHg
[2023-11-29 17:35] LABS: Lactate 0.8 mmol/L (0.6-1.4)
[2023-11-29 17:36] LABS: Abs Immature Grans 0.02 10^3/uL (0.0-0.06); Absolute Basophil Count 0.02 10^3/uL (0.0-0.2); Absolute Lymphocyte Count 0.87 10^3/uL (1.2-3.4); Absolute Monocyte Count 0.36 10^3/uL (0.1-0.8); Absolute Neutrophil Count 5.14 10^3/uL (1.2-6.7); Basophils % 0.3 %; HCT 36.8 % (40.0-50.0); HGB 11.9 g/dL (13.5-17.5); Immature Grans % 0.3 %; Lymphocytes % 13.6 %; MCH 26.1 pg (27.0-33.0); MCHC 32.3 % (32.0-36.0); MCV 81 fL (80-95); MPV 8.9 fL (8.0-11.0); Monocytes % 5.6 %; Neutrophils % 80.2 %; Platelet Count 219 10^3/uL (130-400); RBC 4.56 10^6/uL (4.36-5.78); RDW-SD 38.1 fL; WBC 6.41 10^3/uL (4.4-10.8)
[2023-11-29 17:44] LABS: ESR 38 mm/hr (0-15)
[2023-11-29 17:58] LABS: ALT 49 U/L (16-63); AST 38 U/L (15-37); Albumin 3.2 g/dL (3.4-5.0); Alkaline Phosphatase 53 U/L (46-116); Anion Gap 8.6 mmol/L (3-11); BUN 7 mg/dL (7-18); Bilirubin, Total 0.4 mg/dL (0.2-1.0); CO2 27.4 mmol/L (21.0-32.0); CREATININE 0.8 mg/dL (0.70-1.30); Calcium 9.1 mg/dL (8.5-10.1); Chloride 103 mmol/L (98-107); Glucose 117 mg/dL (74-106); Lipase 18 U/L (16-77); Magnesium 1.7 mg/dL (1.8-2.4); NT-proBNP 100 pg/mL (<300); Sodium 139 mmol/L (136-145)
[2023-11-29 17:59] LABS: Troponin I < 50 ng/L (< or =60)
[2023-11-29 18:09] LABS: Procalcitonin < 0.1 ng/mL
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
[2023-11-29 19:09] LABS: Bilirubin Negative (Negative); Blood Negative (Negative); Clarity Sl Cloudy (Clear); Glucose Negative (Negative); Ketones Negative (Negative); Leukocyte Esterase Negative (Negative); Nitrite Negative (Negative); pH 8.5 (5-8)
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
== END 2023-11-29 20:35 | disposition home or self-care (01) ==
PROVIDERS: Emergency Provider Physician Assistant
DX: T84.84XA Pain due to internal orthopedic prosthetic devices, implants and grafts, initial encounter (principal); L53.9 Erythematous condition, unspecified; S82.831D Other fracture of upper and lower end of right fibula, subsequent encounter for closed fracture with routine healing; Z86.718 Personal history of other venous thrombosis and embolism; R06.02 Shortness of breath; F17.210 Nicotine dependence, cigarettes, uncomplicated; Z59.00 Homelessness unspecified
CPT/HCPCS: 36415; 80053; 82805; 83690; 84145; 85652; 87040; 93005; 99283; 73590; 81003; 83605; 83735; 83880; 84484; 85025; 86140; 93010

== ENCOUNTER 2024-01-06 22:59 | Emergency (ER) | payer OTHER, SELFPAY ==
[2024-01-06] VITALS (8 sets, daily range): BP systolic 107; BP diastolic 55; PULSE 90–111; RESP 27–38; TEMP 37.8; O2SAT 95
--- NOTE | 2024-01-06 03:04 | DI.CT_ITS ---
Exam(s) CT CHEST/ABD/PEL W EXAM: CT CHEST/ABD/PEL W CLINICAL HISTORY: vomiting blood, eval for tear/obstruction. TECHNIQUE: Imaging Protocol: Axial computed tomography images with coronal and sagittal reformatted images were created and reviewed CONTRAST MATERIAL: Intravenous: Omnipaque 350 Contrast volume:100 ml Oral: None COMPARISON: CT CT CHEST W from 06/26/2021 FINDINGS: CHEST: LUNGS: There is pleural based infiltrate in the posterior basal segment of the left lower lobe and la teral basal segment of the right lower lobe, these not associated with pleural effusions nor overlyin g rib destruction. Were not present on prior CT scan of May,. There are no significant fi ndings in the trachea and mainstem bronchi. There is no bronchiectasis. MEDIASTINUM: There is no hilar nor mediastinal adenopathy. Visualized thyroid unremarkable.However, t here is significant circumferential thickening of the esophagus, most prominent in the retrocardiac r egion. The wall of the esophagus is circumferentially thickened to 4-5 mm. No adjacent enlarged lym ph nodes. No obvious hiatal hernia. No evidence of pneumomediastinum, as was evident on CT scan of 06/26/2021. CARDIAC: Heart size is normal. There is no pericardial effusion.Thoracic aorta appears unremarkable. Also no evidence of dissection. OSSEOUS: No significant osseous lesions.. ABDOMEN: There is a paucity of intra-abdominal and retroperitoneal fat. Moderate amount of fecal material is noted throughout the length of the colon. . LIVER: There are no focal hepatic lesions nor dilatation of intrahepatic ducts. GALLBLADDER/BILIARY: No obvious gallbladder pathology. CBD is not dilated. PANCREAS: No evidence of pancreatic mass nor dilatation of the pancreatic duct. SPLEEN: Spleen is not enlarged. There are no intrasplenic lesions. Isodense splenule medial to the s pleen again noted, unchanged from 2020. Splenic and portal veins are patent. ADRENALS: There are no significant adrenal masses. KIDNEYS: No calculi nor hydronephrosis. No solid renal masses. No cysts evident. ABDOMINAL AORTA: Abdominal aorta is not enlarged. LYMPH NODES: There is no retroperitoneal nor paraaortic adenopathy. ABDOMINAL WALL: No evidence of significant anterior abdominal wall nor inguinal hernia. GI: There is no evidence of bowel obstruction. PELVIS: VENOUS: The right common femoral vein, external iliac vein and common iliac vein are thrombosed all t he way up to the formation of the IVC. The intraluminal thrombus does not extend up the IVC. The fe moral and iliac veins are patent. LYMPH NODES: There is no intrapelvic nor inguinal adenopathy. GI: Appendix is difficult to identify with certainty but there is no evidence of obvious acute append icitis.No evidence of sigmoid diverticulitis. URINARY BLADDER: Collapsed. REPRODUCTIVE: Prostate size normal. OSSEOUS: No significant osseous lesions. There are bilateral pars defects at L5 level with mild ante rolisthesis L5 upon S1. No disc space narrowing at this level nor other levels. No fractures. Sacroiliac joints unremarkable. IMPRESSION: 1. There is significant circumferential thickening of the esophagus mid level and distally consistent with significant esophagitis. No large hiatal hernia noted. No pneumomediastinum evident at this t elsie, as was evident on CT scan of May 2021. 2. There is pleural based infiltrate in both lower lobes now evident, not associated with rib destruc tion nor pleural effusions nor intrathoracic adenopathy. This requires follow-up to resolution 3. 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 There is no thrombus within the left common femoral and left iliac veins in the pelvis. First read by [facility]. Report called by myself to ER physician DR. Mota 01/07/2024 6:30 p.m. RADIATION DOSE DELIVERED: 811.62mGy.cm Total DLP DATA REPOSITORY: All CT scans at this facility are submitted to the National Radiology Data Registry (NRDR) Dose Index Registry (DIR) with the [employer] ([employer]). RADIATION OPTIMIZATION: All CT scans at this facility use at least one of these dose optimization te chniques: automated exposure control; mA and/or kV adjustment per patient size (includes targeted exa ms where dose is matched to clinical indication); or iterative reconstruction.
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
[2024-01-06] MEDS: Lactated Ringers 1,000 ML 1000 ML IV (23:24)
[2024-01-06] MEDS: Pantoprazole 40 MG VIAL IVP (23:24)
[2024-01-06] MEDS: Famotidine 20 MG/2 ML VIAL IVP (23:24)
[2024-01-06] MEDS: Metoclopramide 10 MG/2 ML VIAL IVP (23:25)
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
[2024-01-06 23:42] LABS: Lactate 2.2 mmol/L (0.6-1.4)
[2024-01-06 23:53] LABS: Abs Immature Grans 0.03 10^3/uL (0.0-0.06); Absolute Lymphocyte Count 0.64 10^3/uL (1.2-3.4); Absolute Monocyte Count 0.28 10^3/uL (0.1-0.8); Absolute Neutrophil Count 9.28 10^3/uL (1.2-6.7); HCT 39.2 % (40.0-50.0); HGB 12.6 g/dL (13.5-17.5); Immature Grans % 0.3 %; Lymphocytes % 6.3 %; MCHC 32.1 % (32.0-36.0); MCV 81 fL (80-95); MPV 8.5 fL (8.0-11.0); Monocytes % 2.7 %; Neutrophils % 90.7 %; Platelet Count 293 10^3/uL (130-400); RBC 4.84 10^6/uL (4.36-5.78); RDW 13.7 % (11.8-14.1); RDW-SD 39.3 fL; WBC 10.23 10^3/uL (4.4-10.8)
[2024-01-06 23:56] LABS: Lipase 46 U/L (16-77)
[2024-01-06 23:56] LABS: ESR 20 mm/hr (0-15)
[2024-01-06 23:59] LABS: ALT 95 U/L (16-63); AST 65 U/L (15-37); Albumin 3.9 g/dL (3.4-5.0); Alkaline Phosphatase 81 U/L (46-116); Anion Gap 12.8 mmol/L (3-11); BUN 16 mg/dL (7-18); Bilirubin, Total 0.3 mg/dL (0.2-1.0); C-Reactive Protein 0.79 mg/dL (<or=0.5); CO2 30.2 mmol/L (21.0-32.0); Calcium 10.2 mg/dL (8.5-10.1); Chloride 100 mmol/L (98-107); Estimated GFR 105.79 (mL/min/1.73m2); Glucose 132 mg/dL (74-106); Potassium 3.5 mmol/L (3.5-5.1); Sodium 143 mmol/L (136-145); Total Protein 10.5 g/dL (6.4-8.2)
[2024-01-07] VITALS (80 sets, daily range): BP systolic 118–148; BP diastolic 48–90; PULSE 78–114; RESP 16–36; TEMP 36.8; O2SAT 98
[2024-01-07 00:18] LABS: Procalcitonin 0.4 ng/mL
[2024-01-07 02:31] LABS: Bilirubin Negative (Negative); Blood Negative (Negative); Clarity Clear (Clear); Glucose Negative (Negative); Ketones Trace mg/dL (Negative); Leukocyte Esterase Negative (Negative); Nitrite Negative (Negative); Urobilinogen 0.2 mg/dL (Up to 0.2); pH 8.5 (5-8)
[2024-01-07 02:35] LABS: Bacteria Rare HPF (Negative); C & S Indicated? No; Casts Negative LPF (Negative); Crystals Moderate Amorphous HPF (Negative); Epithelial Cells Negative HPF (Negative); Mucus Negative (Negative); RBC Negative HPF (0-2); WBC Negative HPF (0-5)
[2024-01-07] MEDS: Omnipaque 350 MG/ML 100 ML BTL IJ (02:57)
[2024-01-07] MEDS: Normal Saline - Diluent 50 ML VIAL IJ (02:58)
[2024-01-07 03:07] LABS: COVID-19 PCR Negative (Negative); Influenza A PCR Negative (Negative); Influenza B PCR Negative (Negative); RSV PCR Negative (Negative)
[2024-01-07 03:10] LABS: Source Nasopharynx
--- NOTE | 2024-01-07 03:52 | DI.VRAD_ITS ---
PROCEDURE INFORMATION: Exam: CT Chest With Contrast; Diagnostic Exam date and time: 01/07/2024 2:36 AM Age: 28 years old Clinical indication: Vomiting and other: Vomiting blood; Patient HX: Vomiting blood, eval for tear/obstruction TECHNIQUE: Imaging protocol: Diagnostic computed tomography of the chest with contrast. 3D rendering (Not supervised by radiologist): MIP and/or 3D reconstructed images were created by the technologist. Radiation optimization: All CT scans at this facility use at least one of these dose optimization techniques: automated exposure control; mA and/or kV adjustment per patient size (includes targeted exams where dose is matched to clinical indication); or iterative reconstruction. Contrast material: [id number]; Contrast volume: 100 ml; Contrast route: INTRAVENOUS (IV); COMPARISON: CT CHEST W 06/26/2021 7:57 PM FINDINGS: Lungs: Unremarkable. No consolidation. No masses. Pleural spaces: Unremarkable. No pneumothorax. No pleural effusion. Heart: Unremarkable. No cardiomegaly. No pericardial effusion. Esophagus: Mural thickening and adjacent stranding of the distal esophagus raising the possibility of esophagitis. Lymph nodes: Unremarkable. No enlarged lymph nodes. Vasculature: Unremarkable. No aortic aneurysm. Bones/joints: Unremarkable. No acute fracture. Soft tissues: Unremarkable. IMPRESSION: Mural thickening and adjacent stranding of the distal esophagus raising the possibility of esophagitis. PROCEDURE INFORMATION: Exam: CT Abdomen And Pelvis With Contrast Exam date and time: 01/07/2024 2:36 AM Age: 28 years old Clinical indication: Vomiting and other: Vomiting blood; Patient HX: Vomiting blood, eval for tear/obstruction TECHNIQUE: Imaging protocol: Computed tomography of the abdomen and pelvis with contrast. 3D rendering (Not supervised by radiologist): MIP and/or 3D reconstructed images were created by the technologist. Radiation optimization: All CT scans at this facility use at least one of these dose optimization techniques: automated exposure control; mA and/or kV adjustment per patient size (includes targeted exams where dose is matched to clinical indication); or iterative reconstruction. Contrast material: [id number]; Contrast volume: 100 ml; Contrast route: INTRAVENOUS (IV); COMPARISON: CT LOWER EXTREMITY RT WO 09/07/2023 3:52 PM FINDINGS: Liver: Normal. No mass. Gallbladder and bile ducts: Normal. No calcified stones. No ductal dilation. Pancreas: Normal. No ductal dilation. Spleen: Normal. No splenomegaly. Adrenal glands: Normal. No mass. Kidneys and ureters: Normal. No hydronephrosis. Stomach and bowel: Mild fecal retention could indicate element of constipation. No bowel obstruction. Appendix: No evidence of appendicitis. Intraperitoneal space: Unremarkable. No free air. No significant fluid collection. Vasculature: Unremarkable. No abdominal aortic aneurysm. Lymph nodes: Unremarkable. No enlarged lymph nodes. Urinary bladder: Unremarkable as visualized. Reproductive: Unremarkable as visualized. Bones/joints: Unremarkable. No acute fracture. Soft tissues: Unremarkable. IMPRESSION: Mild fecal retention could indicate element of constipation. Dictated and Authenticated by: Ryan Valladares MD. Ordering:DA Wilkinson MD
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
[2024-01-07] MEDS: ceFAZolin 2 GM/50 ML BAG IVPB (04:16)
[2024-01-07] MEDS: Metoclopramide 10 MG/2 ML VIAL IVP (04:27)
--- NOTE | 2024-01-07 18:36 | NUR.NOTE ---
Accessed chart to determine disposition of patient. DR. Sood called about a CT reading from this visit. Call given to Dr Flores. Nursing Note:
--- NOTE | 2024-01-07 19:14 | W.ED.FU ---
Date of service: 01/07/24 Time of Service: 19:14 Follow Up Plan: Received call from Dr. Sood radiologist to over read the virtual radiologist CT from visit from last night. 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 Called and discussed it with the [facility] and relayed that patient to be started on Eliquis at 10 mg twice daily for 7 days and then 5 mg twice daily for at least 3 months but could be longer depending on his primary care provider. They voiced understanding of this and will relay this to their dental assistant medical assistant on-call.
== END 2024-01-07 05:00 | disposition home or self-care (01) ==
PROVIDERS: Emergency Provider Student in an Organized Health Care Education/Training Program
DX: S82.301D Unspecified fracture of lower end of right tibia, subsequent encounter for closed fracture with routine healing (principal); T84.622A Infection and inflammatory reaction due to internal fixation device of right tibia, initial encounter; R11.2 Nausea with vomiting, unspecified; F17.210 Nicotine dependence, cigarettes, uncomplicated
CPT/HCPCS: 36415; 74177; 80053; 83690; 84145; 85652; 86850; 86900; 86901; 87040; 87637; 96361; 96365; 99285; 71260; 73610; 81003; 81015; 83605; 85025; 86140; 99284; J0690; J2470; J2765; J3490

== ENCOUNTER 2024-06-11 09:50 | Inpatient (IN) | payer MEDICAID, SELFPAY ==
[2024-06-11] VITALS (122 sets, daily range): BP systolic 82–159; BP diastolic 50–96; PULSE 93–152; RESP 18–42; TEMP 36.1–37.3; O2SAT 92–100; BMI 23.8
--- NOTE | 2024-06-11 09:30 | RT.EKG_ITS ---
APPROVED REPORT Exam: Resting ECG Reason for Exam: GI Bleed Patient Location: E HR:97 bpm ECG Measurements Heart Rate 97 AXIS AR 106 P 63 QRSd 73 QRS 45 QT 333 T 60 QTc 423 Conclusion Sinus rhythm...normal P axis, V-rate 60- 99 Left atrial enlargement...P, P'>60mS, <-0.15mV V1
--- NOTE | 2024-06-11 09:45 | DI.CT_ITS ---
Exam(s) CT ABDOMEN PELVIS W EXAM: CT ABDOMEN PELVIS W CLINICAL HISTORY: vomiting, left lower abdomen pain. TECHNIQUE: Imaging Protocol: Axial computed tomography images with coronal and sagittal reformatted images were created and reviewed CONTRAST MATERIAL: Intravenous: Omnipaque 350 Contrast volume:85 ml Oral: / no COMPARISON: CT CT CHEST/ABD/PEL W from 01/07/2024 FINDINGS: ABDOMEN and PELVIS: Exam is limited by paucity of intra-abdominal fat and motion. Lung Bases: Posterior basilar atelectasis versus scarring. Liver: Normal density. No suspicious mass. Gallbladder and biliary tract: No radiodense calculus. No biliary dilation. Pancreas: Normal density. No abnormal calcifications or inflammatory process. No evidence of mass. Spleen: Normal. Kidneys: Normal size, contour and axis. No radiodense stones. No obstructive uropathy. No suspicious masses seen. Adrenal glands: No masses seen. Vasculature: Abdominal aorta non-dilated. Soft tissues: Unremarkable. Bladder: No gross wall thickening. No calculi.No focal mass. Bowel: Small hiatal hernia. Distal esophageal wall thickening is again noted. No small or large bow el obstruction. No bowel wall thickening. Large quantity of stool throughout the colon. Peritoneal cavity: No ascites. No focal collection. No mesenteric inflammatory response. Bones: Bilateral L5 pars defects again noted. Reproductive organs: Unremarkable. Lymph nodes: No pathologically enlarged lymph nodes. IMPRESSION:: Small hiatal hernia. Distal esophageal wall thickening. Large quantity of fecal material throughout the colon. Findings called to Dr. Flores of the emergency department. RADIATION DOSE DELIVERED: 231.76mGy.cm Total DLP DATA REPOSITORY: All CT scans at this facility are submitted to the National Radiology Data Registry (NRDR) Dose Index Registry (DIR) with the [employer] (A[employer]). RADIATION OPTIMIZATION: All CT scans at this facility use at least one of these dose optimization te chniques: automated exposure control; mA and/or kV adjustment per patient size (includes targeted exa ms where dose is matched to clinical indication); or iterative reconstruction.
--- NOTE | 2024-06-11 09:45 | DI.RAD_ITS ---
Exam(s) XR CHEST 2V PA LATERAL EXAM: XR CHEST 2V PA LATERAL CLINICAL HISTORY: vomiting TECHNIQUE: 2D digital imaging was performed. Two views. COMPARISON: CT CT CHEST/ABD/PEL W from 01/07/2024 FINDINGS: Exam limited by overlying monitoring leads. HEART: Normal size. Aorta: Not dilated. PULMONARY VASCULATURE: Normal. MEDIASTINUM: Unremarkable. LUNGS: Clear. PLEURAL SPACE: No pleural effusion or pneumothorax. BONE:Unremarkable for age. SOFT TISSUES: Unremarkable. IMPRESSION: No acute abnormality. DATA REPOSITORY: RADIATION DOSE DELIVERED:
--- NOTE | 2024-06-11 09:58 | W.ED.GENAD ---
Discharge Plan Discharge Details ED Provider: Ryan Flores Home Meds and New Rx's Prescriptions: No Action buprenorphine 4 mg PO DAILY clonidine 0.1 mg PO BID IBU 600 mg PO BID hydroxyzine HCl 50 mg tablet 50 mg PO BID sucralfate [Carafate] 1 gram tablet 1 g PO BID Qty: 60 0RF pantoprazole [Protonix] 40 mg tablet,delayed release (DR/EC) 40 mg PO DAILY Qty: 30 0RF famotidine 20 mg tablet 20 mg PO BID Qty: 60 0RF HPI General Mode of arrival: ambulatory. Date/Time Provider Initiated Documentation: 06/11/24 09:53. Limitations to Documentation: no limitations. Information obtained by: patient. History of Present Illness 28 year old M presents to the emergency department with the chief complaint of Vomiting blood, described as moderate, Patient started experiencing this hour(s) (1) and it has been now resolved. No relieving factors improve symptom(s), No exacerbating factors reported . Patient notes nausea/vomiting; denies chest pain, fever/chills and shortness of breath. Patient did receive the following treatments prior to arrival, none Related Data Home Medications ?Medication ?Instructions ?Recorded ?Confirmed IBU 600 mg PO BID 01/07/24 01/07/24 buprenorphine 4 mg PO DAILY 01/07/24 01/07/24 clonidine 0.1 mg PO BID 01/07/24 01/07/24 famotidine 20 mg tablet 20 mg PO BID #60 tabs 01/07/24 hydroxyzine HCl 50 mg tablet 50 mg PO BID 01/07/24 01/07/24 pantoprazole 40 mg tablet,delayed 40 mg PO DAILY #30 tabs 01/07/24 release (Protonix) sucralfate 1 gram tablet (Carafate) 1 g PO BID #60 tabs 01/07/24 Previous Rx's ?Medication ?Instructions ?Recorded famotidine 20 mg tablet 20 mg PO BID #60 tabs 01/07/24 pantoprazole 40 mg tablet,delayed 40 mg PO DAILY #30 tabs 01/07/24 release (Protonix) sucralfate 1 gram tablet (Carafate) 1 g PO BID #60 tabs 01/07/24 Allergies Allergy/AdvReac Type Severity Reaction Status Date / Time lactose Allergy Mild Other (See Unverified 01/07/24 01:58 Comment) General NATALIE: 2 Review of Systems All systems reviewed & are unremarkable except as noted in HPI and below Constitutional Constitutional: Denies chills, Denies fever(s) and Denies weakness Eyes Eyes: Denies loss of vision ENT Ears, Nose, Mouth, and Throat: Denies change in voice Cardiovascular Cardiovascular: Denies chest pain and Denies dyspnea Respiratory Respiratory: Denies cough and Denies dyspnea Gastrointestinal Gastrointestinal: Reports abdominal pain, Reports nausea and Reports vomiting Musculoskeletal Musculoskeletal: Denies joint swelling Neurologic Neurologic: Denies loss of vision and Denies weakness Exam Const General: no acute distress Orientation: alert HENMT Head: normal to inspection Ears: external ears normal General nose exam: external nose normal Mouth: moist mucous membranes Eyes General: appearance normal, both eyes and all related structures Neck Neck: normal visual inspection Resp Effort & Inspection: normal respiratory effort and able to speak in complete sentences Cardio Rate: regular rate GI Palpation: soft and tender Skin General skin exam: no rashes or lesions noted Neuro General: patient alert and patient oriented x3 Extrem General: normal to inspection Psych Mental Status: mental status grossly normal Medical Decision Making 28-year-old male with history of substance abuse, states he used IV fentanyl 2 days ago and yesterday was placed in police custody, comes in from the correctional center after he began vomiting bright red blood about an hour ago. EMS states that he looked like he had vomited just under a liter of blood. Patient has not had any vomiting with EMS. He is hemodynamically stable on arrival, he states that he has some left lower quadrant abdominal pain otherwise no chest pain no difficulty breathing. He has no focal deficits, no fevers or chills. Given his reported upper GI bleed will check a CBC, CMP, coags, type and screen and given his abdominal pain obtain CT abdomen pelvis to evaluate for entities such as diverticulitis. Differential Diagnosis Differential Diagnosis: Diverticulitis, upper GI bleed, stomach ulcer Medical Records Medical records reviewed: Yes I reviewed the patient's medical records. Lab Data Lab results reviewed: Yes I reviewed the patient's lab results. ECG Data Attestation: I personally reviewed and interpreted this ECG (s) as follows: Prior ECG tracings: available for review Interpretation: sinus rate of 97 pr 106 no stemi Quality:SDOH Health Related Social Needs: No Data to Display [facility] All Active Problems (Updated 02/07/24 @ 00:09 by JULIO CÉSAR IRELAND) COVID-19 (Acute) Acute dehydration (Acute) Alkalosis, metabolic (Acute) Acute hypokalemia (Acute) Boerhaave syndrome (Acute) Medical History (Updated 02/07/24 @ 00:09 by JULIO CÉSAR IRELAND) ADHD Asthma Bipolar disorder Schizoaffective disorder Surgical History No significant past surgical history Social History Smoking/Tobacco Use Status: Current every day Tobacco Type: cigarettes Smoking risk assessment performed?: Yes Alcohol Intake: current Alcohol Intake frequency: a few times a week Alcohol type: hard liquor Drug use: Daily Substance use type: marijuana and opiates Details: Fenanyl (2 days ago), weed and cigarettes 11/29/23 FD Housing: apartment Do you feel safe at home: Yes Do you feel safe in your relationship?: Yes
[2024-06-11 10:03] LABS: Abs Immature Grans 0.07 10^3/uL (0.0-0.06); Absolute Basophil Count 0.02 10^3/uL (0.0-0.2); Absolute Lymphocyte Count 1.15 10^3/uL (1.2-3.4); Absolute Neutrophil Count 13.67 10^3/uL (1.2-6.7); Basophils % 0.1 %; Eosinophils % 0.1 %; HCT 34.4 % (40.0-50.0); HGB 10.9 g/dL (13.5-17.5); Immature Grans % 0.5 %; Lymphocytes % 7.4 %; MCH 24.4 pg (27.0-33.0); MCHC 31.7 % (32.0-36.0); MCV 77 fL (80-95); MPV 8.2 fL (8.0-11.0); Monocytes % 3.7 %; Neutrophils % 88.2 %; Platelet Count 316 10^3/uL (130-400); RBC 4.46 10^6/uL (4.36-5.78); RDW 14.9 % (11.8-14.1); RDW-SD 40.7 fL
[2024-06-11 10:04] LABS: BE (Venous) 6 mmol/L (-2-3); HCO3 (Venous) 31 mmol/L (23-28); O2 Sat (Venous) 40 %; TCO2 (Venous) 28 mmol/L (24-29); pCO2 (Venous) 45 mmHg (41-51); pH (Venous) 7.44 (7.31-7.41); pO2 (Venous) 26 mmHg
[2024-06-11 10:10] LABS: Absolute Eosinophil Count 0.02 10^3/uL (0.0-0.7); Absolute Monocyte Count 0.57 10^3/uL (0.1-0.8)
[2024-06-11 10:19] LABS: INR 1.2 (0.9-1.1); PTT Activated 43.7 sec (23.6-32.8); Prothrombin Time 11.8 sec (9.1-11.1)
[2024-06-11] MEDS: Omnipaque 350 MG/ML 100 ML BTL 85 ML IJ (10:23)
[2024-06-11] MEDS: Normal Saline - Diluent 50 ML VIAL IJ (10:24)
[2024-06-11 10:35] LABS: ALT 20 U/L (16-63); AST 15 U/L (15-37); Albumin 2.8 g/dL (3.4-5.0); Alkaline Phosphatase 60 U/L (46-116); Anion Gap 8.5 mmol/L (3-11); BUN 26 mg/dL (7-18); Bilirubin, Direct 0.1 mg/dL (0.0-0.2); Bilirubin, Total 0.29 mg/dL (0.2-1.0); CO2 29.5 mmol/L (21.0-32.0); CREATININE 0.9 mg/dL (0.70-1.30); Chloride 105 mmol/L (98-107); Estimated GFR 120.05 (mL/min/1.73m2); Glucose 127 mg/dL (74-106); Lipase 44 U/L (16-77); Potassium 3.6 mmol/L (3.5-5.1); Sodium 143 mmol/L (136-145); Total Protein 7.6 g/dL (6.4-8.2)
[2024-06-11 10:38] LABS: ETHANOL BLOOD < 3.0 mg/dL (<10)
[2024-06-11 10:41] LABS: Acetaminophen < 2 ug/mL (10-30)
--- OUTSIDE RECORDS SUMMARY | 2024-06-11 10:53 | XMS_ITS | Encounter Summary ---
Author Organization [facility] Address [address] [place] [address] Care Team Providers Care Concessions Manager Name Role Phone Unavailable Primary Care Provider Unavailabl e Encounter Details Date Type Department Care Team (Late st Contact Info) Description 06/27/2021 Lab Requisition [facility] Pathology & Laboratory Medicine - [facility] [address] [place] [address] Outr Resulting Lab, Provider Social History Tobacco Use Types Packs/Day Years Used Date Smoking Tobacco: Never Assessed Sex and Gender Information Value Date Recorded Sex Assigned at Not on file Legal Sex Male 9:36 EST Gender Identity Not on file Sexual Orientation Not on file documented as of this encounter Plan of Treatment Not on file documented as of this encounter Procedures Procedure Name Priority Date/Time Associated Diagnosis Comments ZZCOVID-19 TEST [facility] PCR Today 06/26/2021 16:15 EST COVID-19 TESTING Routine 06/26/2021 16:1 5 EST documented in this encounter Results * COVID-19 TEST [facility] PCR (06/26/2021 16:15 EST) Swab 06/26/2021 16:1 5 EST 06/27/2021 15:42 EST us Provider Outr Resulting Lab MICROBIOLOGY - GENER AL ORDERABLES Final Result [facility] [address] [place] [address] * (ABNORMAL) COVID-19 TESTING (06/26/2021 16:15 EST) COVID-19 rt-PCR Result Positive( AA) Negative 06/28/2021 14:49 EST [facility] Comment: This test has not been FDA cleared or approved. This test has been authorized by FDA under an EUA for use by authorized laboratories. This test has been authorized only for detection of nucleic acid from 2019-nCoV, not for any other viruses or pathogens. This test is only authorized for the duration of the declaration that circumstances exist justifying the authorization of emergency use of in vitro diagnostic tests for detection and/or diagnosis of 2019-nCoV under section 564(b)(1) of Act, 21 U.S.C ?? 360bbb-3(b) (1), unless the authorization is terminated or revoked sooner. Testing was performed using the ferny SARS-CoV-2 assay ([employer] on the Ferny 6800 System Performing Lab Ferny 6800 [facility] 06/28/2021 14:49 EST [facility] Swab 06/26/2021 16:1 5 EST 06/27/2021 15:42 EST us Provider Outr Resulting Lab MICROBIOLOGY - GENER AL ORDERABLES Final Result [facility] [address] [place] [address] documented in this encounter Visit Diagnoses Not on filedocumented in this encounter Additional Health Concerns Infection Onset Date Last Indicated Resolved Time COVID-19 06/26/2021 06/26/2021 07/16/2021 22:1 5 EST documented as of this encounter
--- OUTSIDE RECORDS SUMMARY | 2024-06-11 10:53 | XMS_ITS | Clinical Summary ---
Author Organization [facility] Address [address] [place] [address] Care Team Providers Care Mutual Fund Sales Agent Name Role Phone Unavailable Primary Care Provider Unavailabl e Social History Tobacco Use Types Packs/Day Years Used Date Smoking Tobacco: Never Assessed Sex and Gender Information Value Date Recorded Sex Assigned at Not on file Legal Sex Male 9:36 EST Gender Identity Not on file Sexual Orientation Not on file Plan of Treatment Health Maintenance Due Date Last Done Comments Hepatitis C Screen 1996 Hepatitis B Vaccine (1 of 3 - 19+ 3-dose series) 08/16 COVID-19 Vaccine (2022- season) 2023
--- OUTSIDE RECORDS SUMMARY | 2024-06-11 10:53 | XMS_ITS | Continuity of Care Document ---
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 with your health care provider. Document Revised: 02/07/2022 Document Reviewed: 02/07/2022 [employer] Patient Education ?? 2022 [employer] Tests Performed Radiology CT Abdomen and Pelvis w/ Contrast 01/31/2024 01:17 EDT XR Tibia/Fibula Right 01/31/2024 01:05 EDT Medications and Immunizations Administered Given nicotine 21 mg/24 hr Transderm ER Film, 1 patches, Transdermal Lab Test Name Test Result Date/Time WBC 10.6 K/mcL 01/30/2024 23:40 EDT RBC 3.91 Million/mcL 01/30/2024 23:40 EDT Hgb 10.5 g/dL 01/30/2024 23:40 EDT Hct 31.3 % 01/30/2024 23:40 EDT MCV 80.2 fL 01/30/2024 23:40 EDT MCH 26.9 pg 01/30/2024 23:40 EDT MCHC 33.5 g/dL 01/30/2024 23:40 EDT RDW-CV 14.5 % 01/30/2024 23:40 EDT Platelets 316 K/mcL 01/30/2024 23:40 EDT MPV 6.8 fL 01/30/2024 23:40 EDT Neutro Auto 80.8 % 01/30/2024 23:40 EDT Lymph Auto 11.7 % 01/30/2024 23:40 EDT [place] Auto 6.2 % 01/30/2024 23:40 EDT Eos, Auto 1.00 % 01/30/2024 23:40 EDT Basophil Auto 0.3 % 01/30/2024 23:40 EDT Neutro Absolute 8.6 K/mcL 01/30/2024 23:40 EDT Lymph Absolute 1.2 K/mcL 01/30/2024 23:40 EDT [place] Absolute 0.7 K/mcL 01/30/2024 23:40 EDT Eos Absolute 0.1 K/mcL 01/30/2024 23:40 EDT Baso Absolute 0.0 K/mcL 01/30/2024 23:40 EDT RBC Morph Abnormal 01/30/2024 23:40 EDT Hypochromia 1+ 01/30/2024 23:40 EDT Plt Estimation Normal 01/30/2024 23:40 EDT Teardrop Cells 1+ 01/30/2024 23:40 EDT Slide Review Morph Only 01/30/2024 23:40 EDT ESR, Westergren 28 mm/hr 01/30/2024 23:40 EDT pH David 7.33 pH unit(s) 01/30/2024 23:40 EDT pCO2 David 60.0 mmHg 01/30/2024 23:40 EDT HCO3 Venous 31.6 mmol/L 01/30/2024 23:40 EDT CO2 Total Venous 33.4 mmol/L 01/30/2024 23:40 EDT Sodium Level 132 mmol/L 01/30/2024 23:40 EDT Potassium Level 3.6 mmol/L 01/30/2024 23:40 EDT Chloride Level 98 mmol/L 01/30/2024 23:40 EDT CO2 29 mmol/L 01/30/2024 23:40 EDT Alk Phos 74 IntlUnit/L 01/30/2024 23:40 EDT AST 22 IntlUnit/L 01/30/2024 23:40 EDT ALT 25 IntlUnit/L 01/30/2024 23:40 EDT BUN 11 mg/dL 01/30/2024 23:40 EDT Glucose Level 88 mg/dL 01/30/2024 23:40 EDT Creatinine Level 0.80 mg/dL 01/30/2024 23:40 EDT BUN/Creat Ratio 13.8 01/30/2024 23:40 EDT eGFR CKD-EPI 124 mL/min/1.73 m2 01/30/2024 23:40 EDT Calcium Level 9.2 mg/dL 01/30/2024 23:40 EDT Protein Total 8.1 g/dL 01/30/2024 23:40 EDT Albumin Level 3.7 g/dL 01/30/2024 23:40 EDT Globulin 4.4 g/dL 01/30/2024 23:40 EDT A/G Ratio 0.8 g/dL 01/30/2024 23:40 EDT Bilirubin Total 0.3 mg/dL 01/30/2024 23:40 EDT Anion Gap 5.0 01/30/2024 23:40 EDT Lactic Acid Lvl 1.0 mmol/L 01/30/2024 23:40 EDT Magnesium Level 1.9 mg/dL 01/30/2024 23:40 EDT Osmolality 263 mOsm/kg 01/30/2024 23:40 EDT CRP 93.6 mg/L 01/30/2024 23:40 EDT Patient/Physician Advisor Signature Patient Name:IGLESIA ADAMMani I have received this information and my questions have been answered. Patient/Physician Advisor Name: Patient/Physician Advisor Signature: Relationship to Patient: Witness Name/Signature: Date: Electronically Signed on: 01/31/2024 08:09 EDTSigned by:REYMUNDO * Khadar Khan MD: PERFORM Event Display: ED Discharge Information Authored Date: [id number] KIAIGLESIAMani :1995 Age:28 years Sex:Male Visit Date:01/30/2024 Discharge Instructions We would like to thank you for allowing us to assist you with your healthcare needs. The following includes patient education materials and information regarding your injury/illness. Diagnosis from Today's Visit Nonspecific abdominal pain Leg DVT (deep venous thromboembolism), chronic Discharge Vitals Temperature??(Temporal Artery) 98.4 ??F (36.9 ??C) Heart Rate??(Peripheral) 72 Respiratory Rate?? 16 Blood Pressure?? 104/60?? SpO2?? 100% Height?? 71.00 in (180.34 cm) Weight?? 130.03 lb (58.97 kg) BMI?? 18.13 Allergies No Known Allergies What to Do Next Instructions from Your Care Team It is imperative that you??take your??Xarelto as previously prescribed.?? You have??indicated that??you have been dealing with this??blood clot??since April??and??therefore??you should follow-up??with vascular surgery at [facility] for??reassessment??of this chronic??condition. ??Also??you have an external fixator on your leg that apparently was placed in April??and you have not had any follow-up??as far as??when that??fixator is supposed to??be removed which I would imagine was??months ago.?? [facility] did the surgery so you should follow-up with??[facility] orthopedics??for??reinitiation of care.?? Called [facility]??[phone]??and asked to speak to orthopedic clinic??and vascular clinic to make appointments. ??Return to ED for chest pain??shortness of breath or other problems You were treated today on an emergency basis; it may be golden to contact your primary care provider to notify them of your visit today. You may have been referred to your regular doctor or a specialist, please follow up as instructed. If your condition worsens or you can't get in to see the doctor, contact the Emergency Department. Medications What How Much When Instructions Next Dose Unchanged acetaminophen/ dextromethorphan/ doxylamine/ PE(NyQuil Severe Cold and Flu oral capsule) 2 Capsules Oral (given by mouth) Every 4 hours as needed for cold symptoms Unchanged rivaroxaban (Xarelto 15 mg oral tablet) 1 tab Oral (given by mouth) Every day Education Materials Abdominal Pain, Adult Pain in the abdomen (abdominal pain) can be caused by many things. Often, abdominal pain is not serious and it gets better with no treatment or by being treated at home. However, sometimes abdominal pain is serious. Your health care provider will ask questions about your medical history and do a physical exam to try to determine the cause of your abdominal pain. Follow these instructions at home: Medicines ? Take tyfi-coz-hwnukkn and prescription medicines only as told by your health care provider. ? Do not take a laxative unless told by your health care provider. General instructions ? Watch your condition for any changes. ? Drink enough fluid to keep your urine pale yellow. ? Keep all follow-up visits as told by your health care provider. This is important. Contact a health care provider if: ? Your abdominal pain changes or gets worse. ? You are not hungry or you lose weight without trying. ? You are constipated or have diarrhea for more than 2???3 days. ? You have pain when you urinate or have a bowel movement. ? Your abdominal pain wakes you up at night. ? Your pain gets worse with meals, after eating, or with certain foods. ? You are vomiting and cannot keep anything down. ? You have a fever. ? You have blood in your urine. Get help right away if: ? Your pain does not go away as soon as your health care provider told you to expect. ? You cannot stop vomiting. ? Your pain is only in areas of the abdomen, such as the right side or the left lower portion of the abdomen. Pain on the right side could be caused by appendicitis. ? You have bloody or black stools, or stools that look like tar. ? You have severe pain, cramping, or bloating in your abdomen. ? You have signs of dehydration, such as: ? Dark urine, very little urine, or no urine. ? Cracked lips. ? Dry mouth. ? Sunken eyes. ? Sleepiness. ? Weakness. ? You have trouble breathing or chest pain. Summary ? Often, abdominal pain is not serious and it gets better with no treatment or by being treated at home. However, sometimes abdominal pain is serious. ? Watch your condition for any changes. ? Take dpzr-ten-dhpqxbh and prescription medicines only as told by your health care provider. ? Contact a health care provider if your abdominal pain changes or gets worse. ? Get help right away if you have severe pain, cramping, or bloating in your abdomen. This information is not intended to replace advice given to you by your health care provider. Make sure you discuss any questions you have with your health care provider. Document Revised: 09/04/2020 Document Reviewed: 11/25/2019 [employer] Patient Education ?? 2022 [employer] Deep Vein Thrombosis Deep vein thrombosis (DVT) is a condition in which a blood clot forms in a vein of the deep venous system. This can occur in the lower leg, thigh, pelvis, arm, or neck. A clot is blood that has thickened into a gel or solid. This condition is serious and can be life-threatening if the clot travels to the arteries of the lungs and causes a blockage (pulmonary embolism). A DVT can also damage veinsin the leg, which can lead to long-term venous disease, leg pain, swelling, discoloration, and ulcers or sores (post-thrombotic syndrome). What are the causes? This condition may be caused by: ? A slowdown of blood flow. ? Damage to a vein. ? A condition that causes blood to clot more easily, such as certain bleeding disorders. What increases the risk? The following factors may make you more likely to develop this condition: ? Obesity. ? Being older, especially older than age 60. ? Being inactive or not moving around (sedentary lifestyle). This may include: ? Sitting or lying down for longer than 4???6 hours other than to sleep at night. ? Being in the hospital, or having major or lengthy surgery. ? Having any recent bone injuries, such as breaks (fractures), that reduce movement, especially in the lower extremities. ? Having recent orthopedic surgery on the lower extremities. ? Being , giving , or having recently given . ? Taking medicines that contain estrogen, such as control or hormone replacement therapy. ? Using products that contain nicotine or tobacco, especially if you use hormonal control. ? Having a history of a blood vessel disease (peripheral vascular disease) or congestive heart disease. ? Having a history of cancer, especially if being treated with chemotherapy. What are the signs or symptoms? Symptoms of this condition include: ? Swelling, pain, pressure, or tenderness in an arm or a leg. ? An arm or a leg becoming warm, red, or discolored. ? A leg turning very pale or blue. You may have a large DVT. This is rare. If the clot is in your leg, you may notice that symptoms get worse when you stand or walk. In some cases, there are no symptoms. How is this diagnosed? This condition is diagnosed with: ? Your medical history and a physical exam. ? Tests, such as: ? Blood tests to check how well your blood clots. ? Doppler ultrasound. This is the best way to find a DVT. ? CT venogram. Contrast dye is injected into a vein, and X-rays are taken to check for clots. This ishelpful for veins in the chest or pelvis. How is this treated? Treatment for this condition depends on: ? The cause of your DVT. ? The size and location of your DVT, or having more than one DVT. ? Your risk for bleeding or developing more clots. ? Other medical conditions you may have. Treatment may include: ? Taking a blood thinner medicine (anticoagulant) to prevent more clots from forming or current clotsfrom growing. ? Wearing compression stockings. ? Injecting medicines into the affected vein to break up the clot (catheter- directed thrombolysis). ? Surgical procedures, when DVT is severe or hard to treat. These may be done to: ? Isolate and remove your clot. ? Place an inferior vena cava (IVC) filter. This filter is placed into a large vein called the inferior vena cava to catch blood clots before they reach your lungs. You may get some medical treatments for 6 months or longer. Follow these instructions at home: If you are taking blood thinners: ? Talk with your health care provider before you take any medicines that contain aspirin or NSAIDs, such as ibuprofen. These medicines increase your risk for dangerous bleeding. ? Take your medicine exactly as told, at the same time every day. Do not skip a dose. Do not take more than the prescribed dose. This is important. ? Ask your health care provider about foods and medicines that could change or interact with the way your blood thinner works. Avoid these foods and medicines if you are told to do so. ? Avoid anything that may cause bleeding or bruising. You may bleed more easily while taking blood thinners. ? Be very careful when using knives, scissors, or other sharp objects. ? Use an electric razor instead of a blade. ? Avoid activities that could cause injury or bruising, and follow instructions for preventing falls. ? Tell your health care provider if you have had any internal bleeding, bleeding ulcers, or neurologic diseases, such as strokes or cerebral aneurysms. ? Wear a medical alert bracelet or carry a card that lists what medicines you take. General instructions ? Take bdcw-nut-abbaaqs and prescription medicines only as told by your health care provider. ? Return to your normal activities as told by your health care provider. Ask your health care provider what activities are safe for you. ? If recommended, wear compression stockings as told by your health care provider. These stockings help to prevent blood clots and reduce swelling in your legs. Never wear your compression stockings while sleeping at night. ? Keep all follow-up visits. This is important. Where to find more information ? [place] [employer]: www.heart.org ? Centers for Disease Control and Prevention: www.cdc.gov ? National Heart, Lung, and Blood [place]: www.nhlbi.nih.gov Contact a health care provider if: ? You miss a dose of your blood thinner. ? You have unusual bruising or other color changes. ? You have new or worse pain, swelling, or redness in an arm or a leg. ? You have worsening numbness or tingling in an arm or a leg. ? You have a significant color change (pale or blue) in the extremity that has the DVT. Get help right away if: ? You have signs or symptoms that a blood clot has moved to the lungs. These may include: ? Shortness of breath. ? Chest pain. ? Fast or irregular heartbeats (palpitations). ? Light-headedness, dizziness, or fainting. ? Coughing up blood. ? You have signs or symptoms that your blood is too thin. These may include: ? Blood in your vomit, stool, or urine. ? A cut that will not stop bleeding. ? A menstrual period that is heavier than usual. ? A severe headache or confusion. These symptoms may be an emergency. Get help right away. Call 911. ? Do not wait to see if the symptoms will go away. ? Do not drive yourself to the hospital. Summary ? Deep vein thrombosis (DVT) happens when a blood clot forms in a deep vein. This may occur in the lower leg, thigh, pelvis, arm, or neck. ? Symptoms affect the arm or leg and can include swelling, pain, tenderness, warmth, redness, or discoloration. ? This condition may be treated with medicines. In severe cases, a procedure or surgery may be done to remove or dissolve the clots. ? If you are taking blood thinners, take them exactly as told. Do not skip a dose. Do not take more than is prescribed. ? Get help right away if you have a severe headache, shortness of breath, chest pain, fast or irregular heartbeats, or blood in your vomit, urine, or stool. This information is not intended to replace advice given to you by your health care provider. Make sure you discuss any questions you have with your health care provider. Document Revised: 02/07/2022 Document Reviewed: 02/07/2022 [employer] Patient Education ?? 2022 [employer]. Tests Performed Radiology CT Abdomen and Pelvis w/ Contrast 01/31/2024 01:17 EDT XR Tibia/Fibula Right 01/31/2024 01:05 EDT Medications and Immunizations Administered Given nicotine 21 mg/24 hr Transderm ER Film, 1 patches, Transdermal Lab Test Name Test Result Date/Time WBC 10.6 K/mcL 01/30/2024 23:40 EDT RBC 3.91 Million/mcL 01/30/2024 23:40 EDT Hgb 10.5 g/dL 01/30/2024 23:40 EDT Hct 31.3 % 01/30/2024 23:40 EDT MCV 80.2 fL 01/30/2024 23:40 EDT MCH 26.9 pg 01/30/2024 23:40 EDT MCHC 33.5 g/dL 01/30/2024 23:40 EDT RDW-CV 14.5 % 01/30/2024 23:40 EDT Platelets 316 K/mcL 01/30/2024 23:40 EDT MPV 6.8 fL 01/30/2024 23:40 EDT Neutro Auto 80.8 % 01/30/2024 23:40 EDT Lymph Auto 11.7 % 01/30/2024 23:40 EDT [place] Auto 6.2 % 01/30/2024 23:40 EDT Eos, Auto 1.00 % 01/30/2024 23:40 EDT Basophil Auto 0.3 % 01/30/2024 23:40 EDT Neutro Absolute 8.6 K/mcL 01/30/2024 23:40 EDT Lymph Absolute 1.2 K/mcL 01/30/2024 23:40 EDT [place] Absolute 0.7 K/mcL 01/30/2024 23:40 EDT Eos Absolute 0.1 K/mcL 01/30/2024 23:40 EDT Baso Absolute 0.0 K/mcL 01/30/2024 23:40 EDT RBC Morph Abnormal 01/30/2024 23:40 EDT Hypochromia 1+ 01/30/2024 23:40 EDT Plt Estimation Normal 01/30/2024 23:40 EDT Teardrop Cells 1+ 01/30/2024 23:40 EDT Slide Review Morph Only 01/30/2024 23:40 EDT ESR, Westergren 28 mm/hr 01/30/2024 23:40 EDT pH David 7.33 pH unit(s) 01/30/2024 23:40 EDT pCO2 David 60.0 mmHg 01/30/2024 23:40 EDT HCO3 Venous 31.6 mmol/L 01/30/2024 23:40 EDT CO2 Total Venous 33.4 mmol/L 01/30/2024 23:40 EDT Sodium Level 132 mmol/L 01/30/2024 23:40 EDT Potassium Level 3.6 mmol/L 01/30/2024 23:40 EDT Chloride Level 98 mmol/L 01/30/2024 23:40 EDT CO2 29 mmol/L 01/30/2024 23:40 EDT Alk Phos 74 IntlUnit/L 01/30/2024 23:40 EDT AST 22 IntlUnit/L 01/30/2024 23:40 EDT ALT 25 IntlUnit/L 01/30/2024 23:40 EDT BUN 11 mg/dL 01/30/2024 23:40 EDT Glucose Level 88 mg/dL 01/30/2024 23:40 EDT Creatinine Level 0.80 mg/dL 01/30/2024 23:40 EDT BUN/Creat Ratio 13.8 01/30/2024 23:40 EDT eGFR CKD-EPI 124 mL/min/1.73 m2 01/30/2024 23:40 EDT Calcium Level 9.2 mg/dL 01/30/2024 23:40 EDT Protein Total 8.1 g/dL 01/30/2024 23:40 EDT Albumin Level 3.7 g/dL 01/30/2024 23:40 EDT Globulin 4.4 g/dL 01/30/2024 23:40 EDT A/G Ratio 0.8 g/dL 01/30/2024 23:40 EDT Bilirubin Total 0.3 mg/dL 01/30/2024 23:40 EDT Anion Gap 5.0 01/30/2024 23:40 EDT Lactic Acid Lvl 1.0 mmol/L 01/30/2024 23:40 EDT Magnesium Level 1.9 mg/dL 01/30/2024 23:40 EDT Osmolality 263 mOsm/kg 01/30/2024 23:40 EDT CRP 93.6 mg/L 01/30/2024 23:40 EDT Patient/Physician Advisor Signature Patient Name:ELVA ADAM I have received this information and my questions have been answered. Patient/Physician Advisor Name: Patient/Physician Advisor Signature: Relationship to Patient: Witness Name/Signature: Date: Electronically Signed on: 01/31/2024 08:02 EDTSigned by:REYMUNDO Patient Care team information Care Team Related Persons Name: PAULETTE MAS
--- OUTSIDE RECORDS SUMMARY | 2024-06-11 10:53 | XMS_ITS | Referral Summary ---
Author Organization [facility] Address [address] [place] [address] Care Team Providers Care Senior Trainer Name Role Phone Unavailable Primary Care Provider Unavailabl e Social History Tobacco Use Types Packs/Day Years Used Date Smoking Tobacco: Never Assessed Sex and Gender Information Value Date Recorded Sex Assigned at Not on file Legal Sex Male 9:36 EST Gender Identity Not on file Sexual Orientation Not on file Plan of Treatment Not on file
[2024-06-11] MEDS: Normal Saline Flush 10 ML SYR IVP ×2 (11:02→19:35)
[2024-06-11] MEDS: Pantoprazole 40 MG VIAL IVP (11:02)
[2024-06-11 11:09] LABS: Bilirubin Negative (Negative); Blood Negative (Negative); Clarity Sl Cloudy (Clear); Glucose Negative (Negative); Ketones Negative (Negative); Leukocyte Esterase Negative (Negative); Nitrite Negative (Negative); Specific Gravity 1.015 (1.005-1.025); pH 8.5 (5-8)
[2024-06-11 11:30] LABS: *AMPHETAMINES SCREEN URINE Negative (Negative); *BARBITURATES SCREEN URINE Negative (Negative); *BENZODIAZEPINES SCREEN URINE Negative (Negative); Cannabinoids THC Negative (Negative); Cocaine Screen,Urine Positive (Negative); METHADONE URINE SCREEN Negative (Negative); OPIATES URINE SCREEN Negative (Negative); Tricyclic Antidepressants Negative (Negative)
[2024-06-11] MEDS: Tranexamic Acid 1,000 MG/10 ML VIAL 1000 MG IVP (11:32)
[2024-06-11] MEDS: ACETAMINOPHEN 1,000 MG/100 ML BAG 400 MG IVPB (11:32)
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
[2024-06-11] MEDS: PANTOPRAZOLE 80 MG in Normal Saline 100 ML 10 MG IV ×2 (12:27→21:31)
--- NOTE | 2024-06-11 13:34 | ANES.PREOP_ITS ---
General Info Date of Service Date Performed: 06/11/24 Height: 5 ft 5 in Weight: 65.1 kg Body Mass Index (BMI): 23.8 Surgical Procedure: Operation Date: 06/11/24 13:50 Proposed Procedure Side Surgeon p Gastroscopy Elen Roblero, Meds Allergies and Home Medications Allergies Allergy/AdvReac Type Severity Reaction Status Date / Time lactose Allergy Mild Other (See Unverified 01/07/24 01:58 Comment) Home Medication ?Medication ?Instructions ?Recorded IBU 600 mg PO BID 01/07/24 buprenorphine 4 mg PO DAILY 01/07/24 clonidine 0.1 mg PO BID 01/07/24 famotidine 20 mg tablet 20 mg PO BID #60 tabs 01/07/24 hydroxyzine HCl 50 mg tablet 50 mg PO BID 01/07/24 pantoprazole 40 mg tablet,delayed 40 mg PO DAILY #30 tabs 01/07/24 release (Protonix) sucralfate 1 gram tablet (Carafate) 1 g PO BID #60 tabs 01/07/24 Current Visit Medications: Current Medications Generic Name Dose Route Start Last Admin Trade Name Freq PRN Reason Stop Dose Admin Pantoprazole Sodium 80 mg/ 100 mls @ 10 mls/hr 06/11/24 11:30 06/11/24 12:27 Sodium Chloride IV 10 mls/hr INFUSION ELIUD Administration IV Miscellaneous Supplies 1 each 06/11/24 09:30 Iv Access IV DIRECTED ELIUD Iohexol 85 ml 06/11/24 10:30 06/11/24 10:23 Omnipaque 350 Mg/Ml 100 Ml Btl IJ 07/11/24 23:59 85 ml DIRECTED ELIUD Administration Sodium Chloride 0 ml 06/11/24 09:28 Normal Saline Flush 10 Ml Syr IVP PRN PRN Sodium Chloride 0 ml 06/11/24 20:00 06/11/24 11:02 Normal Saline Flush 10 Ml Syr IVP 10 ml BID ELIUD Administration Sodium Chloride 0 ml 06/11/24 09:28 Normal Saline 10 Ml Vial IJ DIRECTED PRN Sodium Chloride 50 ml 06/11/24 10:30 06/11/24 10:24 Normal Saline - Diluent 50 Ml Vial IJ 50 ml .FOR DI USE ELIUD Administration PFSH Active Problems Active Problems: Problem Status Onset Code Acute upper GI bleed Acute K92.2 COVID-19 Acute U07.1 Acute dehydration Acute E86.0 Alkalosis, metabolic Acute E87.3 Acute hypokalemia Acute E87.6 Boerhaave syndrome Acute K22.3 Medical History Medical History (Updated 06/11/24 @ 11:31 by Ryan Thomas MD) ADHD Asthma Bipolar disorder Schizoaffective disorder Surgical History Surgical History No significant past surgical history Tobacco Smoking/Tobacco Use Status: Current every day Tobacco Type: cigarettes Smoking cigarettes per day: 10 Alcohol Alcohol Intake: current Alcohol intake frequency: a few times a week Alcohol type: hard liquor Substance Use Substance use: Daily Substance use type: marijuana and opiates Details: Fenanyl (2 days ago), weed and cigarettes 11/29/23 FD Vital Signs and Lab Results Vital Signs Most Recent Vital Signs in EMR: Most Recent Vital Signs Temp Pulse Resp BP Pulse Ox 36.3 C L 114 H 27 H 147/78 H 100 06/11/24 12:41 06/11/24 13:25 06/11/24 13:25 06/11/24 13:25 06/11/24 12:41 Lab Results 06/11/24 15:15 06/11/24 09:55 Blood Type / Crossmatch: 2 Antibody Screen NEGATIVE 06/11/24 Complete Blood Count: 2 White Blood Count 15.50 10^3/uL (4.4-10.8) H 06/11/24 09:55 Red Blood Count 4.46 10^6/uL (4.36-5.78) 06/11/24 09:55 Hemoglobin 10.2 g/dL (13.5-17.5) L 06/11/24 15:15 Hematocrit 31.6 % (40.0-50.0) L 06/11/24 15:15 Platelet Count 316 10^3/uL (130-400) 06/11/24 09:55 Complete Metabolic Panel: 2 Sodium 143 mmol/L (136-145) 06/11/24 09:55 Potassium 3.6 mmol/L (3.5-5.1) 06/11/24 09:55 Chloride 105 mmol/L (98-107) 06/11/24 09:55 Carbon Dioxide 29.5 mmol/L (21.0-32.0) 06/11/24 09:55 BUN 26 mg/dL (7-18) H 06/11/24 09:55 Creatinine 0.9 mg/dL (0.70-1.30) 06/11/24 09:55 Est GFR (CKD-EPI 2020) 120.05 (mL/min/1.73m2) 06/11/24 09:55 Magnesium 2.0 mg/dL (1.8-2.4) 06/11/24 09:55 Calcium 9.0 mg/dL (8.5-10.1) 06/11/24 09:55 Albumin 2.8 g/dL (3.4-5.0) L 06/11/24 09:55 Glucose 127 mg/dL (74-106) H 06/11/24 09:55 Liver Function Panel: 2 Alanine Aminotransferase (ALT/SGPT) 20 U/L (16-63) 06/11/24 09: 55 Aspartate Amino Transf (AST/SGOT) 15 U/L (15-37) 06/11/24 09:55 Coagulation Panel: 2 INR International Normalized Ratio 1.2 (0.9-1.1) H 06/11/24 09 :55 Prothrombin Time 11.8 sec (9.1-11.1) H 06/11/24 09:55 Activated Partial Thromboplast Time 43.7 sec (23.6-32.8) H 06/11/24 09:55 Cardiac Panel: 2 No Data to Display Arterial Blood Gas: 2 No Data to Display Venous Blood Gas: 2 Venous Blood pH 7.44 (7.31-7.41) H 06/11/24 09:55 Venous Blood Partial Pressure O2 26 mmHg 06/11/24 09:55 Venous Blood Partial Pressure CO2 45 mmHg (41-51) 06/11/24 09:5 5 Venous Blood Oxygen Saturation 40 % 06/11/24 09:55 Venous Blood HCO3 31 mmol/L (23-28) H 06/11/24 09:55 Venous Blood Base Excess 6 mmol/L (-2-3) H 06/11/24 09:55 Venous Blood Total Carbon Dioxide 28 mmol/L (24-29) 06/11/24 09 :55 Pancreas Panel: 2 Lipase 44 U/L (16-77) 06/11/24 09:55 Thyroid Panel: 2 No Data to Display Infectious Disease: 2 No Data to Display Blood Cultures: 2 No Data to Display Toxicology Panel: 2 Ethyl Alcohol Level < 3.0 mg/dL (<10) 06/11/24 09:55 Urine Amphetamines Screen Negative (Negative) 06/11/24 10:55 Urine Benzodiazepines Screen Negative (Negative) 06/11/24 10:5 5 Urine Barbiturates Screen Negative (Negative) 06/11/24 10:55 Urine Cocaine Screen Positive (Negative) A 06/11/24 10:55 Urine Methadone Screen Negative (Negative) 06/11/24 10:55 Urine Opiates Screen Negative (Negative) 06/11/24 10:55 Ur Tricyclic Antidepressants Screen Negative (Negative) 10:55 Ur Tetrahydrocannabinol (THC) Scrn Negative (Negative) 4 10:55 Imaging and Studies Imaging and Studies Study information below may be from another EMR and interpreted by another provider. Please see original notes in EMR for more complete details. EKG Summary: EKG PATIENT NAME: Dom Echevarria UNIT #: [id number] ORDERING PROVIDER: Ryan Thomas M.D. PRIMARY CARE PROVIDER: CESAR DATE/TIME OF SERVICE: 06/11/24 1000 : 1995 PERFORMING LOCATION: ER APPROVED REPORT Exam: Resting ECG Reason for Exam: GI Bleed Patient Location: E HR:97 bpm ECG Measurements Heart Rate 97 AXIS AZ 106 P 63 QRSd 73 QRS 45 QT 333 T60 QTc 423 Conclusion Sinus rhythm...normal P axis, V-rate 60- 99 Left atrial enlargement...P, P'>60mS, <-0.15mV V1 - <Electronically signed by RYAN THOMAS MD in OV> E-Sign Date: 06/11/24 E-Sign Time: 1005 ADDENDUM APPROVED REPORT Exam: Resting ECG Reason for Exam: GI Bleed Patient Location: E HR:97 bpm ECG Measurements Heart Rate 97 AXIS AZ 106 P 63 QRSd 73 QRS 45 QT 333 T60 QTc 423 Conclusion Sinus rhythm...normal P axis, V-rate 60- 99 Left atrial enlargement...P, P'>60mS, <-0.15mV V1 I have reviewed and I agree with the emergency room physician's ECG interpretation. Electronically signed by: <Electronically signed by Tamara Tate M.D. in OV> 06/11/24 1043 Cosigned by: Anesthesia Assessment and Plan Anesthesia History Personal History: No History of General Anesthesia Family History: No Family History of Anesthesia Complications Exercise Tolerance Exercise Tolerance: Metabolic Equivalents>4 Pertinent Negatives Pertinent Negatives: No Symptoms of GERD, No Major Pulmonary Symptoms or Complaints and No History of CVA/TIA Cardiac & Pulmonary Exam Cardiac Exam: Normal S1/S2 Heart Sounds Pulmonary Exam: Clear Bilateral Breath Sounds Implantable Cardiac Device Does patient have a Pacemaker or an ICD?: No Airway Exam Known Difficult Airway: No Mallampati Class: 2 Mouth Opening: Normal (> 3cm) Thyromental Distance: Greater than 3 cm Neck Range of Motion: Full ROM Neck Circumference: Normal Teeth Condition: Generalized Poor Dentition and Dental Caries ASA Classification ASA Score: ASA 2 Emergency Case?: Yes NPO Status NPO Status: NPO Clears >2 hours, Solids >8 hours Anesthesia Plan Resuscitation Status: Full Code Anesthesia Technique: General Anesthesia Airway Planned: Natural Airway Monitors Used: Standard Monitors
[2024-06-11 15:20] LABS: HCT 31.6 % (40.0-50.0); HGB 10.2 g/dL (13.5-17.5)
--- NOTE | 2024-06-11 15:39 | STOM_PTH ---
PATIENT: Dom Echevarria LOC: [facility]#:[id number] AGE/SX: 28/M ROOM: 218 RE06/11/[address]: Elen Roblero : 1995 BED: A DIS: 06/12/2024 SPEC #: [id number] RECD: 06/11/24 18:06 STATUS: RAÚL REQ #: [id number] MEG: 06/11/24 15:[address]: Elen Roblero DEPT: Surgical Specimen RECD BY: Tamika Ward ENTERED: 06/11/24 18:08 SP TYPE: STOMACH OTHR DR: Fede Lee Tissues: 1 - BIOPSY BOWEL 2 - BIOPSY BOWEL 3 - STOMACH BIOPSY 4 - ESOPHAGUS BIOPSY 5 - ESOPHAGUS BIOPSY Procedures: GROSS AND MICRO LEVEL 4 Comments: [id number]
--- NOTE | 2024-06-11 16:05 | W.PM.ENDDOP ---
Date of service: 06/11/24 Time of Service: 16:05 Endoscopy Report DATE OF PROCEDURE: 06/11/24 PRE-OP DIAGNOSIS: GI bleed POST-OP DIAGNOSIS: other (Hiatal hernia/esophageal ulcers/esophagitis) SURGEON: Elen Roblero ANESTHESIA TYPE: General:No Airway ESTIMATED BLOOD LOSS: 3 PATHOLOGY: other COMPLICATIONS: None DISPOSITION: PACU PROCEDURE DESCRIPTION: Informed consent was obtained from the pt; explaining the benefits and Risks: bleeding, infections, perforations {which could require surgery or antibiotics and prolonged hospital stay}, or ostomy, and complications of anaesthesia, tk aspiration). The patient was take to the procedure room and placed in a supine position. Monitors were applied and a time out was done. The patients name, date of , procedure type, allergies to medications and metal in their body was reviewed. A bite block was placed and the patient was sedated. Once sedated and comfortable an Olympus gastroscope (see RN notes for scope #) was advanced through the oropharynx which was grossly normal, and passed into the esophagus. The proximal and mid-esophagus were normal. The distal esophagus does not show any: dilation/strictures/varices. He does have an esophageal ulcer at the 7 o'clock position. There is also severe esophagitis noted. There is no active bleeding. the scope was advanced into the stomach and through the pylorus into the proximal jejunum. A bx is taken for celiac Dx. The duodenum was noted to be normal. Biopsies were done of the duodenal bulb.. The scope was retracted back into the stomach and biopsies were taken of the antrum. There were no gastritis/gastropathy/ ulcers/masses noted. The scope was retroflexed. The cardia and fundus were noted to be normal. There is a small 2 cm sliding-type hiatal hernia noted. The scope was retracted back into the esophagus and biopsies were done of the GE junction. There is an esophageal ulcer at the 7 o'clock position. Biopsies are taken of the ulcer bed. There is some bleeding noted with the GE junction and ulcer biopsy. It does koki after 30 seconds and there is no bleeding at the time we discontinued the procedure. The GE junction was at 37 cm. The scope was removed and the patient was woken up and taken back to [facility] in stable condition. Patient will be admitted for IV Protonix Carafate and close observation.
--- NOTE | 2024-06-11 17:12 | W.ANESPOSTOP ---
Postoperative Evaluation Date, Time and Location Date Performed: 06/11/24 Time Performed: 16:50 Patient Location: PACU Vital Signs Most Recent Imported Vital Signs: Most Recent Vital Signs Temp Pulse Resp BP Pulse Ox 37.1 C 94 H 28 H 128/67 99 06/11/24 16:56 06/11/24 16:56 06/11/24 16:56 06/11/24 16:56 06/11/24 16:56 Pain Score Most Recent Pain Score: Most Recent Pain Score Pain Level 8 06/11/24 12:41 Assessment Mental Status: Awake (Alert & Oriented to Patient Baseline) Airway and Respiratory Function: Patent airway with normal (patient baseline) respiratory exam Cardiovascular Function: Hemodynamically Stable Hydration Status: Adequately Hydrated Nausea & Vomiting: No Nausea or Vomiting Pain: Pt. Denies Any Pain Peripheral Nerve Block: Patient did not receive a nerve block
[2024-06-11 18:15] LABS: Lab Add On Test DONE
[2024-06-11] MEDS: Acetaminophen 325 MG TAB PO (18:26)
[2024-06-11 18:53] LABS: Ferritin 34 ng/mL (26-388); Folate 5.8 ng/mL (8.6-20.0); Vitamin B12 310 pg/mL (193-986)
[2024-06-11] MEDS: hydrOXYzine HCL 25 MG TAB 50 MG PO (19:34)
[2024-06-11] MEDS: Sucralfate 1 GM TAB PO (19:35)
[2024-06-11] MEDS: Senna TAB 1 TAB PO (19:35)
[2024-06-11] MEDS: cloNIDine 0.1 MG TAB PO (19:35)
[2024-06-12 00:15] VITALS: BP 109/59; PULSE 110; RESP 18; TEMP 37.5; O2SAT 98
[2024-06-12] MEDS: Sucralfate 1 GM TAB PO ×2 (03:51→10:06)
[2024-06-12 08:05] VITALS: BP 119/65; PULSE 105; RESP 17; TEMP 36; O2SAT 98
[2024-06-12 08:08] LABS: Abs Immature Grans 0.06 10^3/uL (0.0-0.06); Absolute Eosinophil Count 0.12 10^3/uL (0.0-0.7); Absolute Monocyte Count 0.51 10^3/uL (0.1-0.8); Basophils % 0.2 %; Eosinophils % 0.7 %; HCT 28.5 % (40.0-50.0); HGB 9.2 g/dL (13.5-17.5); Immature Grans % 0.3 %; Lymphocytes % 10.2 %; MCH 24.7 pg (27.0-33.0); MCHC 32.3 % (32.0-36.0); MCV 77 fL (80-95); MPV 8.9 fL (8.0-11.0); Monocytes % 2.9 %; Neutrophils % 85.7 %; Platelet Count 304 10^3/uL (130-400); RBC 3.72 10^6/uL (4.36-5.78); RDW 15.6 % (11.8-14.1); RDW-SD 41.5 fL; WBC 17.62 10^3/uL (4.4-10.8)
[2024-06-12 08:16] LABS: Absolute Basophil Count 0.04 10^3/uL (0.0-0.2)
[2024-06-12 08:38] VITALS: PULSE 152
[2024-06-12 08:41] LABS: Ferritin 30 ng/mL (26-388)
[2024-06-12 08:49] LABS: Diff Comment Agrees w/ Instrument
--- NOTE | 2024-06-12 08:50 | PDOC.CMPRO ---
Date of service: 06/12/24 Time of Service: 08:50 Care Management Progress Note Progress Note Text Progress Note Text: When Ron Echevarria is ready to discharge back to the correctional facility please have the RN call [phone] and MD call [phone] and give report. SDOH(Care Management) Screening Will the Patient Participate in the Screening?: Declined to provide
[2024-06-12 08:56] VITALS: RESP 20; O2SAT 98
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
[2024-06-12] MEDS: cloNIDine 0.1 MG TAB PO (10:05)
[2024-06-12] MEDS: Pantoprazole 40 MG TABCR PO (10:06)
[2024-06-12] MEDS: Normal Saline Flush 10 ML SYR IVP (10:06)
[2024-06-12] MEDS: hydrOXYzine HCL 25 MG TAB 50 MG PO (10:06)
[2024-06-12] MEDS: Senna TAB 1 TAB PO (10:07)
[2024-06-12 12:08] LABS: HGB 9.2 g/dL (13.5-17.5)
--- NOTE | 2024-06-12 13:52 | PDOC.DSDIS_ITS ---
Date of service: 06/12/24 Time of Service: 13:52 Discharge Plan Disposition Patient Disposition: Home Condition: Improving Discharge Details Reason For Visit: esophageal ulcer Admit Date/Time: 06/11/24 15:52 Admit Provider: Elen Roblero Attending Provider: Elen Roblero Primary Care Provider: None,None Hospital Course Hospital Course: A&P Notes 28 years old. He came to the hospital with hematemesis. Hemoglobin was 10.9, which was lower than the 12.6 previously recorded in December. He was started on proton pump inhibitor therapy, and underwent urgent EGD that demonstrated an esophageal ulcer. There was no stigmata of active bleeding. Follow-up hemoglobin was 9.2 and remained stable next day. He was discharged home with outpatient instructions for follow-up Home Meds and New Rx's Prescriptions: Continued buprenorphine 4 mg PO DAILY clonidine 0.1 mg PO BID IBU 600 mg PO BID hydroxyzine HCl 50 mg tablet 50 mg PO BID sucralfate [Carafate] 1 gram tablet 1 g PO BID Qty: 60 0RF pantoprazole [Protonix] 40 mg tablet,delayed release (DR/EC) 40 mg PO DAILY Qty: 30 0RF Discontinued famotidine 20 mg tablet 20 mg PO BID Qty: 60 0RF Discharge Instructions Instructions: Esophagitis, Peptic ulcers, Hiatal hernia Additional Instructions: Dom, it was nice meeting you in the hospital, and am sorry that you find yourself in the situation. As I explained, you have esophagitis, or inflamm ation of your swallowing pipe with an ulcer there. There are many components to therapy here, but the mainstay is medical treatment with proton pump inhibitor therapy, and lifestyle modifications to avoid risk factors for bleeding. It is very important that you do not smoke any cigarettes, and do not consume any alcohol as they cause a significant amount of inflammation of your esophagus. It appears you have already been prescribed Protonix as well as sucralfate. It is critical that you take these medications every day as instructed. Obviously, if you have any significant change in your symptoms, or recurrence of bleeding, then you can always come back to the emergency department for treatment if needed. I would encourage you to follow-up with Dr. Roblero as well. She is the surgeon who performed your EGD. You can schedule an appointment with her through the office at [phone]. Activity:: Activity as Tolerated Equipment/Supplies:: No Equipment Needed Diet:: Peptic ulcer diet DS: Diagnosis Discharge Diagnosis (1) Acute upper GI bleed: Status: Acute (2) Hiatal hernia with GERD: Status: Acute (3) Erosive esophagitis: Status: Acute (4) Esophageal ulcer with bleeding: Status: Acute (5) Tobacco abuse: Status: Acute (6) Polysubstance (including opioids) dependence, daily use: Status: Acute (7) Polysubstance abuse: Status: Acute (8) History of deep vein thrombosis (DVT) of lower extremity: (9) Homeless single person: Status: Acute (10) Constipation: Status: Acute (11) Opioid abuse: Status: Acute (12) Protein calorie malnutrition: Status: Acute (13) Muscle atrophy: Status: Acute (14) IVDU (intravenous drug user): Status: Acute
--- NOTE | 2024-06-12 13:53 | PHA.REVIEW2 ---
Pharmacy Admission Review Admission Clinical Review Admission Pharmacy Review: IVDU (intravenous drug user) (Acute) Muscle atrophy (Acute) Protein calorie malnutrition (Acute) Opioid abuse (Acute) Constipation (Acute) Homeless single person (Acute) Polysubstance abuse (Acute) Polysubstance (including opioids) dependence, daily use (Acute) Tobacco abuse (Acute) Esophageal ulcer with bleeding (Acute) Erosive esophagitis (Acute) Hiatal hernia with GERD (Acute) Acute upper GI bleed (Acute) lactose Allergy (Mild, Unverified 01/07/24 01:58) Other (See Comment) Resuscitation Status Full Code Height 5 ft 5 in Weight 65.1 kg Comments Comments/Follow Ups: POD#1 esophageal ulcer Pharmacy Admission Review Renal Dosing Renal Dosing: BUN 26 mg/dL (7-18) H 06/11/24 09:55 Creatinine 0.9 mg/dL (0.70-1.30) 06/11/24 09:55 Medications needing adjustments: Reviewed (CrCl 113 mL/min) List of meds needing interventions: Current medications are okay Anticoagulation Anticoagulation: Hgb 9.2 g/dL (13.5-17.5) L 06/12/24 12:01 Hct 28.5 % (40.0-50.0) L 06/12/24 07:23 Plt Count 304 10^3/uL (130-400) 06/12/24 07:23 INR 1.2 (0.9-1.1) H 06/11/24 09:55 Creatinine 0.9 mg/dL (0.70-1.30) 06/11/24 09:55 DVT Prophylaxis: Reviewed (SCDs, Hgb decreased from 10.2) Relevant Labs Relevant Labs: Sodium 143 mmol/L (136-145) 06/11/24 09:55 Potassium 3.6 mmol/L (3.5-5.1) 06/11/24 09:55 Chloride 105 mmol/L (98-107) 06/11/24 09:55 Magnesium 2.0 mg/dL (1.8-2.4) 06/11/24 09:55 Electrolytes, C-Reactive P, ESR: Reviewed (WBC increased from 15.5 to 17.62) Cardiac Review BP, HR, EF%: Reviewed (BP WNL, HR 152) QTc Review QTc: Reviewed (423 from 06/11/24) IV to PO Switch IV Medications: Reviewed (ondansetron) Home Meds Home Med List reviewed: Reviewed Relevent Home Meds Not ordered & why?: famotidine (has order for pantoprazole) Order for buprenorphine left pending as of right now. Waiting for confirmation on dosage form (film vs tab), provider supposed to be calling back. Current Meds Current Medication Order Review: Intervened Comments: Discontinued PACU orders Comments Comments/Follow Ups: POD#1 esophageal ulcer
--- NOTE | 2024-06-12 14:20 | W.PM.PROGNOT ---
Date of Service Date of service: 06/12/24 Time of Service: 14:20 Assessment and Plan Assessment and plan (1) Acute upper GI bleed: Status: Acute Assessment and plan: Seems to be most consistent with acute esophagitis and ulceration. Absent any active bleeding, I would recommend proton pump inhibitor therapy, and sucralfate for treatment. Obviously, he needs to stop smoking cigarettes and consuming alcohol well, if they are quite caustic to the esophagus. I will discharge him today, he can follow-up as an outpatient. Subjective Subjective Interval history since last seen: Dom tells me that he is feeling a little bit better today. He is quite anxious with regards to being in the hospital, and the trial regarding his incarceration. He denies any pain currently. He is been tolerating liquids with no symptoms. He had some tachycardia early this morning while up and ambulating, but that has improved. His hemoglobin is stable Exam GI Other: Abdomen is soft and nondistended. Nontender. Objective Last Vital Signs Temp 96.8 F L 06/12/24 08:05 Pulse 152 H 06/12/24 08:38 Resp 20 06/12/24 08:56 BP 119/65 06/12/24 08:05 Pulse Ox 98 06/12/24 08:56 Laboratory Results - last 24 hr 06/11/24 06/11/24 06/12/24 09:55 15:15 07:23 WBC 17.62 H RBC 3.72 L Hgb 10.2 L 9.2 L Hct 31.6 L 28.5 L MCV 77 L MCH 24.7 L MCHC 32.3 RDW 15.6 H Plt Count 304 MPV 8.9 Immature Gran % 0.3 Neutrophils % 85.7 Lymphocytes % 10.2 Monocytes % 2.9 Eosinophils % 0.7 Basophils % 0.2 Nucleated RBC % 0.0 Absolute Neutrophils 15.10 H Absolute Lymphocytes 1.80 Absolute Monocytes 0.51 Absolute Eosinophils 0.12 Absolute Basophils 0.04 Ferritin 34 30 Vitamin B12 310 Folate 5.8 L Add-On Test Request DONE 06/12/24 12:01 WBC RBC Hgb 9.2 L Hct MCV MCH MCHC RDW Plt Count MPV Immature Gran % Neutrophils % Lymphocytes % Monocytes % Eosinophils % Basophils % Nucleated RBC % Absolute Neutrophils Absolute Lymphocytes Absolute Monocytes Absolute Eosinophils Absolute Basophils Ferritin Vitamin B12 Folate Add-On Test Request Time Spent with Patient Time Spent with Patient: 25-34 minutes Time was spent: preparing to see the patient(eg.review tests), indepentently interpreting results, counseling the patient and care coordination
--- NOTE | 2024-06-12 15:50 | NUR.NOTE ---
Nursing note:Patient left his official court paperwork in his room. Case management recommended faxing it to the prison. [facility] [phone] phone, fax.
--- NOTE | 2024-06-12 18:08 | PDOC.CMDIS ---
Date of service: 06/12/24 Time of Service: 18:08 LACE Index Scoring Tool Questions: Length of Stay (in days): 1 Was the patient admitted via the E.D.?: Yes E.D. Visits: 3 Answers: Total Score: 7 Risk of Readmission: Low Risk Care Management Discharge Plan Reason for Hospitalization: Ulcer Discharge Plan: [facility] court hearing was held prior to discharge. [facility] and is discharged to the community. Transportation was arranged by [facility]. Follow up with community providers and discharge plan of care as instructed. Patient/Family Education Needs: Review discharge instructions, limitations and plan to follow up with community providers. Discuss ask me three. SDOH Health Related Social Needs: No Data to Display
[2024-06-12 19:22] LABS: HIV-1/2 Ag & Ab Screen Negative (Negative)
[2024-06-12 19:49] LABS: Hepatitis C Ab w Rflx HCV PCR Reactive (Negative)
[2024-06-13 15:14] LABS: HCV RNA Detection Quantitative 7890000 IU/mL (Undetected); HCV RNA Qualitative Detected (Undetected)
== END 2024-06-12 14:40 | disposition home or self-care (01) | DRG 381 ==
LOC: ER 11:35 → SUR 14:39 → MS 16:13
PROVIDERS: Surgery; Admitting Provider Surgery; Emergency Provider Emergency Medicine; Visit Provider Surgery
PROC: 0DJ68ZZ Inspection of Stomach, Via Natural or Artificial Opening Endoscopic (ICD-10-PCS; CPT 43235; principal; 2024-06-11 13:45)
DX: K22.11 Ulcer of esophagus with bleeding (principal); E46 Unspecified protein-calorie malnutrition; F11.20 Opioid dependence, uncomplicated; Z59.00 Homelessness unspecified; F19.20 Other psychoactive substance dependence, uncomplicated; F17.210 Nicotine dependence, cigarettes, uncomplicated; Z86.718 Personal history of other venous thrombosis and embolism; K59.00 Constipation, unspecified; K44.9 Diaphragmatic hernia without obstruction or gangrene; J45.909 Unspecified asthma, uncomplicated; F25.9 Schizoaffective disorder, unspecified; F12.90 Cannabis use, unspecified, uncomplicated; F90.9 Attention-deficit hyperactivity disorder, unspecified type; K29.61 Other gastritis with bleeding; B96.81 Helicobacter pylori [H. pylori] as the cause of diseases classified elsewhere
CPT/HCPCS: 43239; 36415; 80053; 80307; 82805; 83690; 86803; 86850; 86900; 86901; 87389; 87522; 88305; 93005; 71046; 74177; 80320; 80329; 81003; 82248; 82607; 82728; 82746; 83735; 85014; 85018; 85025; 85610; 85730; 93010; J0131; J2371; J2470; J2704; J3490

== ENCOUNTER 2025-01-22 19:09 | Emergency (ER) | payer SELFPAY ==
[2025-01-22 19:21] VITALS: BP 151/93; PULSE 123; RESP 18; TEMP 37.4; O2SAT 96
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
[2025-01-22] MEDS: Omeprazole 20 MG CAPCR PO (21:42)
[2025-01-22] MEDS: Famotidine 20 MG TAB PO (21:42)
[2025-01-22] MEDS: Mylanta Suspension 30 ML CUP 10 ML PO (22:21)
[2025-01-22] MEDS: Lidocaine 2% Viscous 1 ML Solution 5 ML PO (22:22)
[2025-01-22] MEDS: diphenhydrAMINE Elixir 25 MG/10 ML CUP PO (22:22)
[2025-01-22] MEDS: Magic Mouthwash 119 ML BTL 10 ML PO (22:36)
[2025-01-22] MEDS: Lidocaine 2% Viscous 15 ML CUP (22:36)
[2025-01-22 22:51] VITALS: BP 139/98; PULSE 97; RESP 18; TEMP 36.8; O2SAT 98
[2025-01-22 22:58] VITALS: BP 139/98; PULSE 97; RESP 18; TEMP 36.8; O2SAT 98
== END 2025-01-22 22:59 | disposition home or self-care (01) ==
PROVIDERS: Emergency Provider Nurse Practitioner Family
DX: K21.00 Gastro-esophageal reflux disease with esophagitis, without bleeding (principal); K44.9 Diaphragmatic hernia without obstruction or gangrene; K59.00 Constipation, unspecified; F17.210 Nicotine dependence, cigarettes, uncomplicated; Z86.73 Personal history of transient ischemic attack (TIA), and cerebral infarction without residual deficits
CPT/HCPCS: 99283

== ENCOUNTER 2025-02-15 23:51 | Emergency (ER) | payer SELFPAY ==
[2025-02-16] VITALS: BP 143/86; PULSE 94; RESP 20; O2SAT 94
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
[2025-02-16] MEDS: Cyclobenzaprine 10 MG TAB PO (01:19)
[2025-02-16] MEDS: Ketorolac 15 MG/ML VIAL IM (01:19)
[2025-02-16] MEDS: Acetaminophen 500 MG TAB 1000 MG PO (01:19)
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
[2025-02-16 02:39] VITALS: TEMP 36
--- NOTE | 2025-02-16 02:42 | DI.[facility]_ITS ---
PROCEDURE INFORMATION: Exam: CT Thoracic Spine Without Contrast Exam date and time: 02/16/2025 1:23 AM Age: 29 years old Clinical indication: Other: Fall onto rocks, back pain, midline lumbar ttp TECHNIQUE: Imaging protocol: Computed tomography of the thoracic spine without contrast. Radiation optimization: All CT scans at this facility use at least one of these dose optimization techniques: automated exposure control; mA and/or kV adjustment per patient size (includes targeted exams where dose is matched to clinical indication); or iterative reconstruction. COMPARISON: CT ABDOMEN PELVIS W 06/11/2024 10:22 AM FINDINGS: Bones/joints: No acute thoracic fracture or malalignment is seen. There is spinal degenerative change with Schmorl's nodes at multiple levels, best demonstrated by images 27-33 of series 21. There is no significant thoracic spinal stenosis. Soft tissues: No gross superficial soft tissue fluid collection or mass is seen through the visualized thoracic region. Esophagus: There is fluid throughout the thoracic esophagus suggesting severe gastroesophageal reflux versus obstruction to distal esophageal outflow. There is a 6 mm x 3 mm x 7 mm disc shaped radiopaque foreign body in the midthoracic esophagus on image 66 of series 25, possibly an ingested tablet or ingested foreign body. Clinical correlation recommended. Lungs: There is patchy and reticular opacity in the superior segment of the lower lobe, nonspecific. Thyroid: The thyroid gland appears normal in size. IMPRESSION: 1. No acute thoracic fracture or malalignment. 2. Fluid throughout the thoracic esophagus suggesting severe gastroesophageal reflux or obstruction to distal esophageal outflow. 3. 6 mm x 3 mm x 7 mm disc shaped radiopaque foreign body in the midthoracic esophagus. An ingested tablet or ingested foreign body could have this appearance. Clinical correlation is recommended. 4. Patchy and reticular opacity in the superior segment of the left lower lobe. Aspiration is suggested given the appearance of the esophagus although a region of developing infection could have a similar appearance. PROCEDURE INFORMATION: Exam: CT Lumbar Spine Without Contrast Exam date and time: 02/16/2025 1:23 AM Age: 29 years old Clinical indication: Other: Fall onto rocks, back pain, midline lumbar ttp TECHNIQUE: Imaging protocol: Computed tomography of the lumbar spine without contrast. Radiation optimization: All CT scans at this facility use at least one of these dose optimization techniques: automated exposure control; mA and/or kV adjustment per patient size (includes targeted exams where dose is matched to clinical indication); or iterative reconstruction. COMPARISON: CT ABDOMEN PELVIS W 06/11/2024 10:22 AM FINDINGS: Bones/joints: There is minimal retrolisthesis of L4 on L5. There is bilateral spondylolysis at L5 with minimal anterolisthesis of L5 on S1. There are acute fractures through the right L2 and L3 transverse processes. Otherwise, no acute fracture is seen in the lumbar spine. T12-L1: Loss of disc height with endplate irregularity and small Schmorl's nodes in the opposing endplates. Small broad-based posterior disc bulge. No significant central canal narrowing or significant foraminal narrowing. L1-L2: Disc height relatively preserved. Schmorl's node in the superior endplate at L2. No focal disc herniation. No significant central canal narrowing or neural foraminal narrowing. L2-L3: Disc height preserved. Small Schmorl's node in the inferior L2 endplate. Mild central canal narrowing. Ligamentum flavum thickening. No significant foraminal narrowing. L3-L4: Disc height preserved. Schmorl's node in the inferior L3 endplate. Small broad-based posterior disc bulge and mild thickening of the ligamentum flavum with mild central canal narrowing. Mild bilateral foraminal narrowing. L4-L5: Disc height preserved. Minimal retrolisthesis of L4 on L5. No significant central canal narrowing. Mild bilateral foraminal narrowing. L5-S1: Bilateral spondylolysis at L5 with minimal anterolisthesis of L5 on S1. Moderate-sized broad-based posterior pseudodisc bulge with disc material abutting and partially flattening the right L5 nerve root. Mild left-sided foraminal narrowing. No significant foraminal narrowing. Soft tissues: No gross superficial soft tissue fluid collection or mass is seen through the visualized lumbar region. IMPRESSION: 1. Acute fractures through the right L2 and L3 transverse processes. 2. Bilateral spondylolysis at L5, as described, and a moderate-sized broad-based posterior pseudodisc bulge with disc material abutting and partially flattening the right L5 nerve root. 3. Additional findings, as above. Dictated and Authenticated by: Zohaib Savage MD. Orderin Kimberly Ambriz MD
[2025-02-16] MEDS: Lidocaine 5% Patch 1 PATCH TP (03:52)
== END 2025-02-16 03:53 | disposition home or self-care (01) ==
PROVIDERS: Emergency Provider Student in an Organized Health Care Education/Training Program
DX: S32.020A Wedge compression fracture of second lumbar vertebra, initial encounter for closed fracture (principal); S32.030A Wedge compression fracture of third lumbar vertebra, initial encounter for closed fracture; K21.9 Gastro-esophageal reflux disease without esophagitis; W17.89XA Other fall from one level to another, initial encounter; M51.26 Other intervertebral disc displacement, lumbar region
CPT/HCPCS: 99284 ×2; 96372; 96375; 72128; 72131; J1885

== ENCOUNTER 2025-02-23 02:20 | Inpatient (IN) | payer SELFPAY ==
[2025-02-23] VITALS (28 sets, daily range): BP systolic 109–144; BP diastolic 55–100; PULSE 71–98; RESP 12–20; TEMP 36.1–36.9; O2SAT 94–100
--- NOTE | 2025-02-23 02:30 | DI.CT_ITS ---
Exam(s) CT CHEST PE CTA EXAM: CT CHEST PE CTA CLINICAL HISTORY: leg dvt, now SOB, chest pain. TECHNIQUE: Imaging Protocol: Axial CT angiography was performed with multi- slice acquisition and multi-planar reconstructions as well as axial, coronal and sagittal MIP reconstructions. Computer aided detection (CAD) was utilized. CONTRAST MATERIAL: Intravenous: Omnipaque 350 Contrast volume:70 ml COMPARISON: CT CT CHEST/ABD/PEL W from 01/07/[address] ABDOMEN PELVIS W from 06/11/2024 FINDINGS: Exam is limited by patient arm positioning, particularly the images through the upper abdomen. Pulmonary Arteries: No evidence of filling defect to suggest pulmonary emboli. Filling defect and some dilatation of the left pulmonary vein which could indicate a thrombosis. It is asymmetric from the right side. Mediastinum and Kavya: Fluid in the distal esophagus. Pulmonary parenchyma: Patchy densities noted in the posteromedial superior segment of the left lower lobe. Few patchy densities are noted in the superior right lower lobe. Ground-glass infiltrates noted at the left lung base. Pleura: No effusion or pneumothorax. Heart: The heart is not dilated. No coronary artery calcifications are seen. Aorta: Thoracic aorta non-dilated. No dissection. Upper abdomen: Large quantity of stool noted in the splenic flexure. Liver is mainly obscured by artifact. Bones: Unremarkable for age. Tubes, Catheters, and Lines: None Soft tissues: Lack of subcutaneous fat. IMPRESSION: No evidence of pulmonary embolism. Filling defect in the left pulmonary vein could indicate thrombus. Patchy infiltrates in the lower lobes, left greater than right. The preliminary [facility] report was reviewed. RADIATION DOSE DELIVERED: Total DLP DATA REPOSITORY: All CT scans at this facility are submitted to the National Radiology Data Registry (NRDR) Dose Index Registry (DIR) with the [employer] ([employer]). RADIATION OPTIMIZATION: All CT scans at this facility use at least one of these dose optimization techniques: automated exposure control; mA and/or kV adjustment per patient size (includes targeted exams where dose is matched to clinical indication); or iterative reconstruction.
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
[2025-02-23 03:16] LABS: Abs Immature Grans 0.13 10^3/uL (0.0-0.06); HCT 40.0 % (40.0-50.0); HGB 12.9 g/dL (13.5-17.5); Immature Grans % 0.8 %; MCH 25.0 pg (27.0-33.0); MCHC 32.3 % (32.0-36.0); MCV 77 fL (80-95); MPV 9.7 fL (8.0-11.0); Platelet Count 286 10^3/uL (130-400); RBC 5.17 10^6/uL (4.36-5.78); RDW 17.2 % (11.8-14.1); RDW-SD 47.7 fL; WBC 17.23 10^3/uL (4.4-10.8)
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
[2025-02-23] MEDS: Normal Saline 500 ML IV (03:27)
[2025-02-23 03:46] LABS: ALT 34 U/L (16-63); AST 35 U/L (15-37); Albumin 3.6 g/dL (3.4-5.0); Alkaline Phosphatase 66 U/L (46-116); Anion Gap 8.7 mmol/L (3-11); BUN 47 mg/dL (7-18); Bilirubin, Total 0.6 mg/dL (0.2-1.0); CO2 31.3 mmol/L (21.0-32.0); Calcium 9.9 mg/dL (8.5-10.1); Chloride 88 mmol/L (98-107); Estimated GFR 84.48 (mL/min/1.73m2); Glucose 100 mg/dL (74-106); NT-proBNP 120 pg/mL (<300); Potassium 4.1 mmol/L (3.5-5.1); Sodium 128 mmol/L (136-145); Total Protein 9.0 g/dL (6.4-8.2)
[2025-02-23 03:49] LABS: Procalcitonin 8.77 ng/mL
[2025-02-23 03:55] LABS: INR 1.1 (0.9-1.1); PTT Activated 55.0 sec (20.6-30.2); Prothrombin Time 10.9 sec (9.1-11.1)
[2025-02-23] MEDS: Normal Saline - Diluent 50 ML VIAL IJ ×2 (04:38→04:40)
[2025-02-23] MEDS: Omnipaque 350 MG/ML 100 ML BTL IJ ×2 (04:39→04:40)
--- NOTE | 2025-02-23 05:03 | DI.VRAD_ITS ---
PROCEDURE INFORMATION: Exam: CTA Chest With Contrast Exam date and time: 02/23/2025 4:26 AM Age: 29 years old Clinical indication: Shortness of breath and other: Leg dvt, now SOB, chest pain TECHNIQUE: Imaging protocol: Computed tomographic angiography of the chest with contrast. Exam focused on the arteries. 3D rendering (Not supervised by radiologist): MIP and/or 3D reconstructed images were created by the technologist. Contrast material: OMNI 350; Contrast volume: 70 ml; Contrast route: INTRAVENOUS (IV); COMPARISON: CT CHEST/ABD/PEL W 01/07/2024 2:36 AM FINDINGS: Limitations: The examination is degraded by diffuse technical artifact. The frviqj-sv-spkwz ratio is low which limits resolution. Extensive streak artifact, created at least in part by arm positioning. Pulmonary arteries: Unusually small left lower lobe pulmonary arteries, not well evaluated. Otherwise, no pulmonary embolism identified. Aorta: No thoracic aortic aneurysm or dissection. Veins: Unusual large filling defect within the inferior left pulmonary vein with diminished or absent enhancement of the subtending left lower lobe pulmonary veins, suspicious for pulmonary venous thrombus. Thyroid: Thyroid gland partially excluded from view but grossly unremarkable through its visualized portion. Lungs: Patchy ground-glass opacities and nodular densities in the left lower lobe. 5 mm right upper lobe pulmonary nodule on image 54 of series 10. No region of hollis pulmonary consolidation. Pleural spaces: No pleural effusion or pneumothorax. Heart: Normal-sized heart. Lymph nodes: Within the limits of visualization, no bulky mediastinal or hilar adenopathy. Diaphragm: Probable small hiatal hernia, partially obscured. Bones/joints: No acute fracture seen among the bones of the chest. Soft tissues: Cachectic body morphology. No gross soft tissue mass or fluid collection seen in the chest wall. IMPRESSION: 1. Unusually small left lower lobe pulmonary arteries, not well evaluated. Otherwise, no pulmonary embolism identified. 2. Unusual large filling defect within the inferior left pulmonary vein with diminished or absent enhancement of the subtending left lower lobe pulmonary veins, suspicious for pulmonary venous thrombus. 3. Patchy ground-glass opacities and nodular densities in the left lower lobe. An acute pulmonary infection or small volume of aspiration could have this appearance; however, this appearance may result from the central pulmonary venous thrombus. Dictated and Authenticated by: Zohaib Savage MD. Orderin Wen Wilkinson MD
--- NOTE | 2025-02-23 05:15 | RT.EKG_ITS ---
APPROVED REPORT Exam: Resting ECG Reason for Exam: sob Patient Location: E HR:67 bpm ECG Measurements Heart Rate 67 AXIS WI 154 P 75 QRSd 86 QRS 59 QT 434 T 68 QTc 457 Conclusion Sinus rhythm...normal P axis, V-rate 60- 99 Probable left atrial enlargement...P >50mS, <-0.10mV V1 I have reviewed and interpreted ECG and agree with software generated interpretation.
[2025-02-23] MEDS: PIPERACILLIN/TAZO 4.5 GM in Normal Saline 100 ML IVPB (05:20)
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
[2025-02-23 05:45] LABS: Troponin I < 4 ng/L (<or=76)
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
[2025-02-23 06:00] LABS: Troponin I 4 ng/L (<or=76)
[2025-02-23] MEDS: Heparin in 0.45% NaCl 25,000 UNIT/250 ML BAG 1000 UNIT IVINF (07:26)
[2025-02-23 09:30] LABS: Hemoglobin A1C 5.9 % (<5.7)
[2025-02-23] MEDS: PIPERACILLIN/TAZO 3.375 GM in Normal Saline 50 ML IVPB ×3 (10:45→20:23)
[2025-02-23] MEDS: Nicotine 21 MG/24 HR PATCH TD (10:52)
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
[2025-02-23 14:17] LABS: TSH (W/Ref FT4) 0.82 uIU/mL (0.36-3.74)
[2025-02-23] MEDS: Pantoprazole 40 MG VIAL IVP (15:17)
[2025-02-23] MEDS: Enoxaparin 60 MG/0.6 ML SYR 55 MG SC (15:17)
[2025-02-23] MEDS: Lidocaine 5% Patch 1 PATCH TP (15:17)
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
[2025-02-23] MEDS: Normal Saline Flush 10 ML SYR IVP ×2 (20:24)
[2025-02-23] MEDS: Normal Saline 1,000 ML 150 ML IV (22:03)
[2025-02-23 22:27] LABS: Cannabinoids THC Negative (Negative); METHADONE URINE SCREEN Negative (Negative)
[2025-02-24] MEDS: Normal Saline 1,000 ML 150 ML IV ×2 (04:59→12:50)
[2025-02-24] MEDS: Enoxaparin 60 MG/0.6 ML SYR 55 MG SC (05:00)
[2025-02-24 06:38] LABS: Abs Immature Grans 0.02 10^3/uL (0.0-0.06); HCT 28.6 % (40.0-50.0); HGB 9.1 g/dL (13.5-17.5); Immature Grans % 0.3 %; MCH 24.7 pg (27.0-33.0); MCHC 31.8 % (32.0-36.0); MCV 78 fL (80-95); MPV 10.0 fL (8.0-11.0); Platelet Count 208 10^3/uL (130-400); RBC 3.68 10^6/uL (4.36-5.78); RDW 17.2 % (11.8-14.1); RDW-SD 48.3 fL; WBC 7.84 10^3/uL (4.4-10.8)
[2025-02-24 06:53] LABS: Anion Gap 7.1 mmol/L (3-11); BUN 12 mg/dL (7-18); CO2 27.9 mmol/L (21.0-32.0); Calcium 8.3 mg/dL (8.5-10.1); Chloride 99 mmol/L (98-107); Estimated GFR 128.71 (mL/min/1.73m2); Glucose 88 mg/dL (74-106); Magnesium 1.7 mg/dL (1.8-2.4); Potassium 3.8 mmol/L (3.5-5.1); Sodium 134 mmol/L (136-145)
[2025-02-24 07:22] VITALS: BP 123/63; PULSE 86; RESP 14; TEMP 36.8; O2SAT 97
[2025-02-24] MEDS: PIPERACILLIN/TAZO 3.375 GM in Normal Saline 50 ML IVPB ×2 (08:51→11:59)
[2025-02-24] MEDS: Normal Saline Flush 10 ML SYR IVP (08:52)
[2025-02-24] MEDS: Nicotine 21 MG/24 HR PATCH TD (08:52)
[2025-02-24] MEDS: Lidocaine 5% Patch 1 PATCH TP (08:52)
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
[2025-02-24 11:11] VITALS: BP 133/61; PULSE 74; RESP 14; TEMP 36.9; O2SAT 94
--- NOTE | 2025-02-24 11:55 | PTTR_ITS ---
PT Notes Visit Reasons: Cellulitis Inpatient Physical Therapy Treatment Note [facility] Date: 02/24/2025 PRECAUTIONS: Standard SUBJECTIVE:Pt reports he is tired and really wants to sleep although is agreeable to working with PT so he can take a shower. OBJECTIVE:pt presented supine in bed with LE elevated. swelling noted to right Lower leg (+) warmth. ? PAIN: right foot 5/10 VITALS: ?monitored by Nursing? BED MOBILITY/TRANSFERS? Rolling L/R: independent Supine-sit: independent ? Sit-supine:independent ? Sit-stand: independent? Stand-sit: independent ? Bed-toilet: SBA with FWW? Provided skilled cues and instruction on performance and technique throughout. Gait Training ([id number][]): Direct one-on-one instruction and skilled instruction in: [X] employing an assistive device [X] modified weight-bearing status [X] movement sequencing [] turning and movement with proper form [X] Provided verbal cues for equipment management and technique [X] Provided instruction in gait pattern [X] Patient education regarding pacing and breathing techniques to maximize activity tolerance? GAIT? Assistive Device: FWW? Weight bearing: WBAT Assist: SBA? Distance:? 75FT X2 ? Deviation: step to pattern with WB thru toes progressed to slight step through pattern with foot flat for entire second distance. ? ASSESSMENT:? Progressed with distance of ambulation. Initially amb with WB through toes. With encouragement, pt able to progress to foot flat ambulation with reciprocal pattern from step to pattern. Pt left facility AMA in the afternoon. Pt observed to walk to elevator without limp without AD with his sneakers on. PLAN: 1-2x/day, 7 days/week x 1 week. Plan of care has been reviewed with the FARMWORKER RICE providing the service under Physical Therapy direction. Initiate Physical Therapy intervention for strengthening, bed mobility, transfers, gait, stairs, balance training, use of assistive device. TREATMENT CODE/TIME: 1st session: [id number]/ [id number] DISCHARGE RECOMMENDATION:Home with no services when medically appropriate
--- NOTE | 2025-02-24 13:37 | W.PM.PROGNOT ---
Date of Service Date of service: 02/24/25 Time of Service: 13:39 Assessment and Plan Assessment and plan (1) Pulmonary embolism: Status: Chronic Assessment and plan: Pt does have a pulmonary venous thrombosis a/w DVT. He is not on therapeutic dosing of LMWH. Will continue this for now. We need to figure out insurance for outpatient therapy, with DOAC. Cause of venous thrombosis unclear. No evident malignancy on CT. Sould have hypercoagulability work up. He does have HCV which can contribute, repeat VL pending. (2) Acute deep vein thrombosis (DVT) of right lower extremity: Status: Acute Assessment and plan: as above (3) Cellulitis: Status: Acute Assessment and plan: Improving on pip/tazo and vancomycin, broad given underweight, concern for immune defficiency. Consider narrowing 02/25 if cultures negative. (4) Tobacco abuse: Status: Acute Assessment and plan: nicoderm (5) Polysubstance (including opioids) dependence, daily use: Status: Acute Assessment and plan: UDS just shows cocaine, but he reports regular fentanyl use. He got 30mg of methadone in ED. He was on this before. I will continue 30mg/day and try to coordinate transition to [facility] upon discharge. (6) Protein calorie malnutrition: Status: Acute Assessment and plan: Associated with dysphagia to solids in setting of erosive esophagitis. Malignnacy not likely at his age, but stricture seems likely. consult to nutrition placed, continue liquid diet with protein supplementation (7) Erosive esophagitis: Status: Acute Assessment and plan: on PPI. Will need endoscopy for dysphagia as above, plan as outpatient. (8) Hepatitis C: Status: Chronic Assessment and plan: HCV RNA pending to confirm viral load. Suspect high VL as protein/albumin ratio high. Hep B screen also done as not on record, HIV screen as well. Subjective Subjective Patient reports: no new complaints and voiding w/o difficulty; denies diarrhea, vomiting, shortness of breath or fever Interval history since last seen: leg is feeling a little better. He vomiting solids yesterday but took liquids including shakes no issues. He is starting to feel some opioid withdrawal, would like to get back into [facility]. Exam Narrative Exam Narrative: GEN: A&O x 3, cachectic appearing HEENT: no masses visible/palpable. pupils 4-5mm tyler Cardiovascular- RRR, no M/G/R Lungs- CTAB, nl effort Abdomen- soft, NT/ND Extremities- RLE swelling/erythema less prominent. 2cm eschar mid abrams, no drainage. Psych-alert and oriented x 3 no apparent distress Objective Last Vital Signs Temp 36.9 C 02/24/25 11:11 Pulse 74 02/24/25 11:11 Resp 14 02/24/25 11:11 BP 133/61 02/24/25 11:11 Pulse Ox 94 02/24/25 11:11 Laboratory Results - last 24 hr 02/23/25 02/23/25 02/24/25 13:21 22:05 05:50 WBC 7.84 RBC 3.68 L Hgb 9.1 L D Hct 28.6 L MCV 78 L MCH 24.7 L MCHC 31.8 L RDW 17.2 H Plt Count 208 MPV 10.0 Immature Gran % 0.3 Neutrophils % 72.4 Lymphocytes % 21.3 Monocytes % 5.6 Eosinophils % 0.4 Basophils % 0.0 Nucleated RBC % 0.0 Absolute Neutrophils 5.68 Absolute Lymphocytes 1.67 Absolute Monocytes 0.44 Absolute Eosinophils 0.03 Absolute Basophils 0.00 Sodium 134 L Potassium 3.8 Chloride 99 Carbon Dioxide 27.9 Anion Gap 7.1 BUN 12 Creatinine 0.7 Est GFR (CKD-EPI 2020) 128.71 Glucose 88 Calcium 8.3 L Magnesium 1.7 L TSH 0.82 Urine Opiates Screen Positive A Urine Methadone Screen Negative Ur Barbiturates Screen Negative Ur Tricyclics Screen Negative Ur Amphetamines Screen Negative U Benzodiazepines Scrn Negative Urine Cocaine Screen Positive A Ur THC Screen Negative PAWSS Have you Been Recently Intoxicated or Drunk Within the Last 30 days?: No Have you Ever Experienced Previous Episodes of Alcohol Withdrawal?: No Have you ever Experienced Withdrawal Seizures?: No Have you ever Experienced Delirium Tremens(DT)s?: No Have you ever undergone Alcohol Rehabilitation Treatment (i.e, inpt ot outpatient treatment programs)?: No Have you ever Experienced Blackouts?: No Have you ever Combined Alcohol with other Downers within the last 90 days?: No Have you ever Combined Alcohol with any other Substance of Abuse during the last 90 days?: No Positive Blood Alcohol level on Presentation? [PCS.BAL]: No Evidence of Increased Autonomic Activity (i.e. HR>120, tremor, sweating, agitation, nausea)?: No Result: 0 Time Spent with Patient Time Spent with Patient: 35-49 minutes Time was spent: preparing to see the patient(eg.review tests), obtaining and/or reviewing separately otained hiistory, ordering medications,tests, procedures, referring, communicating with other health child care centre director, indepentently interpreting results, counseling the patient and care coordination
[2025-02-24] MEDS: Pantoprazole 40 MG VIAL IVP (13:58)
--- NOTE | 2025-02-24 14:54 | NUR.NOTE ---
Nursing Note: Pt notified nurse that he had to go to bathroom, while nurse was waiting in room for pt, she found a broken glass pipe as well as black box. Nurse asked visitor what it was, visitor said he did not know, as he was told by the patient to just grab it from his moms house. Nurse then carried the pipe and box to bathroom and told pt i am going to need to confiscate this as you have paraphernalia in the hospital and that is not allowed, pt responds okay thats all i have. Nurse went through black box with charge nurse (Sarah) and found following items: 1 broken glass pipe with drug in it 1 white charging block 1 black lock box 1 black straight knife 1 pocket knife 2 koolaid packet 1 willam [place] silver patient intake representative 2 plastic crack pipe 3 pens 1 glass blunt jar 1 blunt 1 candle During this time of confiscation, nursing supervisor looping (Adolfo) and security (Star Quiñonez) came to take illegal belongings which was : patient intake representative, pocket knife, straight knife, candle. At this time patient and visitor walk to elevator and states i am leaving. Nurse follows pt and stands in elevator to prevent it from closing while de-escalating patient to go back to room so she can take IV out. Pt agreed to go back to room, nurse took out L midline and RAC IV. During this time nursing supervisor looping and primary nurse edcuated pt the danger of leaving AMA due to his cellulitis and DVT. Pt verbalized understanding of risk of leaving, signed AMA paperwork and was escorted with security. Legal belongings returned back to pt prior to leaving. Charge nurse notified provider
--- NOTE | 2025-02-24 15:11 | W.NUTRFU ---
Date of service: 02/24/25 Time of Service: 15:11 Nutrition Note NOTE: received nutrition consult request. went to visit patient to complete but not in room and not on rounds list. I called [facility] and was reported to me that he left AMA. Nutrition consult cancelled Time Spent in Nutritional Counseling and Treatment: 0
--- NOTE | 2025-02-24 15:33 | CMDISCH_ITS ---
Date of service: 02/24/25 Time of Service: 15:33 LACE Index Scoring Tool Questions: Length of Stay (in days): 1 Was the patient admitted via the E.D.?: Yes E.D. Visits: 3 Answers: Total Score: 7 Risk of Readmission: Low Risk Care Management Discharge Plan Reason for Hospitalization: Cellulitis Discharge Plan: Dom will be discharged back to the community, he has left AMA. It is recommended that he follows up with the T-Doc Jerry Hartman, and plan of care. Patient/Family Education Needs: Review discharge instructions, activity, limitations, and plan of care. Discuss ask me three. SDOH Health Related Social Needs: Health related social needs daily activities Health related social needs details pt is homeless and can use a lot of h elp Health related social needs details: pt is homeless and can use a lot of help
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
[2025-02-24 18:33] LABS: HIV-1/2 Ag & Ab Screen Negative (Negative)
[2025-02-24 18:43] LABS: HBs Antibody, Quant 477.1 mIU/mL (See Note); Hepatitis B Surface Antigen Negative (Negative)
[2025-02-26 11:57] LABS: HCV RNA Qualitative Detected (Undetected)
== END 2025-02-24 14:46 | disposition left against medical advice (07) | DRG 176 ==
LOC: ER 05:55 → MS 08:28
PROVIDERS: Admitting Provider Hospitalist; Emergency Provider Student in an Organized Health Care Education/Training Program; Responsible Provider Family Medicine; Visit Provider Hospitalist
DX: I26.99 Other pulmonary embolism without acute cor pulmonale (principal); F11.20 Opioid dependence, uncomplicated; Z59.00 Homelessness unspecified; I82.411 Acute embolism and thrombosis of right femoral vein; E46 Unspecified protein-calorie malnutrition; L03.115 Cellulitis of right lower limb; Z68.1 Body mass index [BMI] 19.9 or less, adult; K22.10 Ulcer of esophagus without bleeding; F19.20 Other psychoactive substance dependence, uncomplicated; F25.9 Schizoaffective disorder, unspecified; F90.9 Attention-deficit hyperactivity disorder, unspecified type; Z86.718 Personal history of other venous thrombosis and embolism; R06.02 Shortness of breath; B19.20 Unspecified viral hepatitis C without hepatic coma; K21.9 Gastro-esophageal reflux disease without esophagitis; K44.9 Diaphragmatic hernia without obstruction or gangrene; F17.210 Nicotine dependence, cigarettes, uncomplicated; F31.9 Bipolar disorder, unspecified; T45.516A Underdosing of anticoagulants, initial encounter; Z91.148 Patient's other noncompliance with medication regimen for other reason
CPT/HCPCS: 36410; 00123; 71275; 76942; 80048; 80053; 80307; 84145; 86704; 86706; 87040; 87340; 87389; 87522; 93005; 93971; 96361; 96365; 96366; 96367; 96368; 97116; 97162; 99291; 73701; 83036; 83605; 83735; 83880; 84443; 84484; 85025; 85610; 85730; 93010; 99223; 99239; J1644; J1650; J2470; J2543; J3373; J3490

== ENCOUNTER 2025-04-15 10:46 | Emergency (ER) | payer SELFPAY ==
[2025-04-15 10:57] VITALS: BP 110/82; PULSE 80; RESP 20; TEMP 36.8; O2SAT 94
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
--- NOTE | 2025-04-15 12:53 | NUR.NOTE ---
Nursing Note: Pt asking for fluids. Provided with small cup of water, educated to take in slowly over 10 minutes to limit nausea reaction. Pt took cup, kept holding direct gaze with this nurse and took down the whole glass in several gulps. Pt educated that it would be 10-15 minutes before receiving another cup, so as to limit his nausea/ vomiting since pt did not choose to follow recommendations. Pt aware this was not a punishment but an attempt to help pt regulate impulsivity.
== END 2025-04-15 14:29 | disposition home or self-care (01) ==
PROVIDERS: Emergency Provider Physician Assistant
DX: F11.93 Opioid use, unspecified with withdrawal (principal); Z59.00 Homelessness unspecified
CPT/HCPCS: 99283

== ENCOUNTER 2025-04-25 16:19 | Emergency (ER) | payer SELFPAY ==
[2025-04-25 16:20] VITALS: BP 114/65; PULSE 125; RESP 16; TEMP 37.1; O2SAT 98
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
== END 2025-04-25 17:00 | disposition left against medical advice (07) ==
LOC: ER 16:31
PROVIDERS: Emergency Provider Physician Assistant
DX: F11.93 Opioid use, unspecified with withdrawal (principal); Z53.20 Procedure and treatment not carried out because of patient's decision for unspecified reasons; Z59.00 Homelessness unspecified
CPT/HCPCS: 99283; 99281

== ENCOUNTER 2025-05-07 20:19 | Emergency (ER) | payer SELFPAY ==
[2025-05-07] VITALS (9 sets, daily range): BP systolic 98–126; BP diastolic 60–81; PULSE 66–90; RESP 9–28; TEMP 37; O2SAT 96–100
--- NOTE | 2025-05-07 20:30 | DI.CT_ITS ---
Exam(s) CT ABDOMEN PELVIS W EXAM: CT ABDOMEN PELVIS W CLINICAL HISTORY: abdominal pain, chronic constipation TECHNIQUE: Imaging Protocol: Axial computed tomography images with coronal and sagittal reformatted images were created and reviewed. CONTRAST MATERIAL: Intravenous: Omnipaque 350 contrast volume:75 mL Oral: No COMPARISON: CT CT CHEST/ABD/PEL W from 01/07/[address] ABDOMEN PELVIS W from 06/11/[address] CHEST PE CTA from 02/23/2025 FINDINGS: Examination is limited secondary to the paucity of intra-abdominal fat. ABDOMEN: Lung Bases: There is [id number] diffuse thickening of the wall of the distal esophagus. There is a small hiatal hernia. Liver: Normal density. No measurable mass. Portal, Superior Mesenteric, and Splenic Veins: Unremarkable. Gallbladder and Biliary Tract: No radiodense calculus or dilation. Pancreas: Normal density, no abnormal calcifications or inflammatory process. Spleen: Normal. Adrenals: No masses seen. Kidneys: Normal size, contour and axis. No radiodense stones or obstructive uropathy. No masses seen. Abdominal Aorta: Abdominal portion non-dilated. Bowel: There is stool seen throughout the colon suggesting constipation. No definite evidence to suggest bowel obstruction are seen. There is no bowel wall thickening present. This to suggest appendicitis is seen. Peritoneal Cavity: No ascites, collection or mesenteric inflammatory response. No free air. Lymph Nodes: Within normal limits. Bones: Within normal limits for the patient's age. 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 Soft Tissues: Unremarkable. PELVIS: Bladder: Symmetric distention, no gross wall thickening. Reproductive Organs: Unremarkable as visualized. Lymph Nodes: Within normal limits. Bones: Within normal limits for the patient's age. IMPRESSION: 1. There is a large amount of stool seen throughout the colon suggesting constipation. 2. [id number] diffuse thickening of the wall of the distal esophagus. There is a small hiatal hernia. Esophagitis cannot be excluded. Esophagram or upper endoscopy may be considered for further evaluation. 3. The preliminary [facility] report was reviewed. RADIATION DOSE DELIVERED: 222.79mGy.cm Total DLP DATA REPOSITORY: All CT scans at this facility are submitted to the National Radiology Data Registry (NRDR) Dose Index Registry (DIR) with the [employer] ([employer]). RADIATION OPTIMIZATION: All CT scans at this facility use at least one of these dose optimization techniques: automated exposure control; mA and/or kV adjustment per patient size (includes targeted exams where dose is matched to clinical indication); or iterative reconstruction.
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
--- NOTE | 2025-05-07 20:30 | RT.EKG_ITS ---
APPROVED REPORT Exam: Resting ECG Reason for Exam: dizziness Patient Location: E HR:80 bpm ECG Measurements Heart Rate 80 AXIS NC 135 P 58 QRSd 62 QRS 58 QT 364 T 63 QTc 421 Conclusion Sinus rhythm...normal P axis, V-rate 60- 99 Probable left atrial enlargement...P >50mS, <-0.10mV V1 ST elevation suggests acute pericarditis...ST >0.10mV, ant/lat/inf Sinus rhythm at a rate of 80. Normal axis. Intervals within normal limits. Upsloping ST segment elevations V2 through V4. No ST segment depressions. T wave inversion in aVL. ST segment elevations more pronounced compared to prior dated earlier this year. aVL T wave version persistent.
--- NOTE | 2025-05-07 20:42 | DI.RAD_ITS ---
Exam(s) XR CHEST 2V PA LATERAL EXAM: XR CHEST 2V PA LATERAL CLINICAL HISTORY: dizziness, vomiting ? hiatal hernia. TECHNIQUE: 2D digital imaging was performed. COMPARISON: No exams were available for comparison FINDINGS: 2 views: Heart size is normal. The mediastinum is not widened. Bilateral hyperinflation but no confluent infiltrates nor pleural effusions. No pneumothorax. IMPRESSION: No acute pulmonary findings. DATA REPOSITORY: RADIATION DOSE DELIVERED:
[2025-05-07] MEDS: Lactated Ringers 1,000 ML 1000 ML IV (21:03)
[2025-05-07] MEDS: Omnipaque 350 MG/ML 100 ML BTL IJ (21:12)
[2025-05-07] MEDS: Normal Saline Flush 10 ML SYR IVP (21:12)
[2025-05-07] MEDS: Normal Saline - Diluent 50 ML VIAL IJ (21:13)
[2025-05-07 21:14] LABS: Abs Immature Grans 0.01 10^3/uL (0.0-0.06); HCT 35.8 % (40.0-50.0); HGB 11.7 g/dL (13.5-17.5); Immature Grans % 0.1 %; MCH 27.9 pg (27.0-33.0); MCHC 32.7 % (32.0-36.0); MCV 85 fL (80-95); MPV 8.4 fL (8.0-11.0); Platelet Count 252 10^3/uL (130-400); RBC 4.19 10^6/uL (4.36-5.78); RDW 15.7 % (11.8-14.1); RDW-SD 47.8 fL; WBC 7.36 10^3/uL (4.4-10.8)
[2025-05-07] MEDS: Triamcinolone 0.1% CR 15 GM TUBE TP (21:32)
[2025-05-07 21:46] LABS: ALT 37 U/L (16-63); AST 24 U/L (15-37); Albumin 3.7 g/dL (3.4-5.0); Alkaline Phosphatase 54 U/L (46-116); Anion Gap 6.7 mmol/L (3-11); BUN 9 mg/dL (7-18); Bilirubin, Total 0.3 mg/dL (0.2-1.0); CO2 30.3 mmol/L (21.0-32.0); Calcium 8.8 mg/dL (8.5-10.1); Chloride 103 mmol/L (98-107); Estimated GFR 123.63 (mL/min/1.73m2); Glucose 73 mg/dL (74-106); Lipase 45 U/L (<78); Potassium 4.2 mmol/L (3.5-5.1); Sodium 140 mmol/L (136-145); Total Protein 7.6 g/dL (6.4-8.2)
[2025-05-07 22:02] LABS: Troponin I < 4 ng/L (<or=76)
[2025-05-07 22:07] LABS: COVID-19 PCR Negative (Negative); RSV PCR Negative (Negative)
[2025-05-07 22:29] LABS: Troponin I 4 ng/L (<or=76)
--- NOTE | 2025-05-07 22:38 | DI.[facility]_ITS ---
PROCEDURE INFORMATION: Exam: CT Abdomen And Pelvis With Contrast Exam date and time: 05/07/2025 9:15 PM Age: 29 years old Clinical indication: Other: Abdominal pain, chronic constipation TECHNIQUE: Imaging protocol: Computed tomography of the abdomen and pelvis with contrast. Contrast material: OMNIPAQUE 350; Contrast volume: 75 ml; Contrast route: INTRAVENOUS (IV); COMPARISON: CT LOWER EXTREMITY RT W 02/23/2025 4:32 AM FINDINGS: Limitations: Extreme paucity of intra-abdominal fat with limited differentiation of normal anatomic structures. Lungs: Mild dependent atelectasis. Diaphragm: 3.7 cm hiatal hernia. Liver: Normal appearing liver. Gallbladder and biliary ducts: Normal appearing gallbladder. No calcified gallstones. No biliary dilatation. Pancreas: Normal appearing pancreas. Spleen: Normal appearing spleen. Adrenal glands: Adrenal glands partially obscured but grossly unremarkable, as seen. Kidneys and ureters: Normal appearing kidneys. No hydronephrosis. Stomach and bowel: Stomach moderately distended with fluid and ingested material. No small bowel dilatation to suggest obstruction. Prominent retained fecal material in the cecum, ascending colon, transverse colon, descending colon, and sigmoid colon. Within the limits of visualization, no evidence of diverticulitis or colitis. Rectum relatively well evacuated. . Appendix: Appendix partially obscured but normal in caliber and appearance through its visualized portion. Intraperitoneal space: Within the limits of visualization, no gross ascites or free air Vasculature: Normal caliber abdominal aorta. Lymph nodes: Within the limits of the exam, no bulky adenopathy demonstrated. Urinary bladder: Urinary bladder partially collapsed but grossly unremarkable, as seen. Reproductive: Prostate gland and seminal vesicles partially obscured by close opposition of adjacent structures but grossly normal in size. Bones/joints: No acute fracture seen among the bones of the abdomen or pelvis. Spinal degenerative change with endplate irregularities and small Schmorl's nodes at multiple levels. Bilateral spondylolysis at L5 with grade 1 retrolisthesis of L4 on L5 and grade 1 anterolisthesis of L5 on S1 with severe narrowing of the right L5-S1 neural foramen with disc material abutting and partially flattening the right L5 nerve root. Soft tissues: No significant ventral or inguinal hernia. IMPRESSION: 1. Prominent retained fecal material throughout the colon. Constipation suggested. Rectum relatively well evacuated. 2. 3.7 cm hiatal hernia. Dictated and Authenticated by: Zohaib Savage MD. Orderin Nirmal Bledsoe MD
--- NOTE | 2025-05-07 22:48 | DI.[facility]_ITS ---
PROCEDURE INFORMATION: Exam: XR Chest Exam date and time: 05/07/2025 9:29 PM Age: 29 years old Clinical indication: Other: Dizziness, vomiting ? hiatal hernia TECHNIQUE: Imaging protocol: Radiologic exam of the chest. Views: 2 views. COMPARISON: CT CHEST PE CTA 02/23/2025 4:26 AM FINDINGS: Lungs: No pulmonary consolidation is seen. Pleural spaces: No pleural effusion or pneumothorax is demonstrated. Heart/Mediastinum: Normal-sized heart. Bones/joints: The visualized bony structures appear grossly intact. IMPRESSION: No active disease is seen in the chest. Dictated and Authenticated by: Zohaib Savage MD. Orderin Nirmal Bledsoe MD
[2025-05-07] MEDS: Magnesium Citrate 300 ML BTL PO (22:56)
[2025-05-07] MEDS: Pantoprazole 40 MG VIAL IVP (22:57)
[2025-05-07] MEDS: Normal Saline 100 ML 200 ML (22:57)
[2025-05-07] MEDS: Polyethylene Glycol 3350 17 GM PACKET PO (23:08)
[2025-05-07] MEDS: Omeprazole 20 MG CAPCR 40 MG PO (23:08)
== END 2025-05-07 23:47 | disposition home or self-care (01) ==
PROVIDERS: Emergency Provider Nurse Practitioner Family
DX: R21 Rash and other nonspecific skin eruption (principal); K59.00 Constipation, unspecified; K22.10 Ulcer of esophagus without bleeding; F11.90 Opioid use, unspecified, uncomplicated
CPT/HCPCS: 99285; 99284; 96374; 80053; 83690; 87637; 93005; 96361; 71046; 74177; 84484; 85025; 93010; J2470; J3490

== ENCOUNTER 2025-05-17 13:06 | Emergency (ER) | payer SELFPAY ==
[2025-05-17 13:07] VITALS: BP 128/78; PULSE 113; RESP 10; TEMP 36.4; O2SAT 92
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
[2025-05-17 13:56] VITALS: BP 115/68; PULSE 98; RESP 16; O2SAT 99
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
[2025-05-17] MEDS: Acetaminophen 500 MG TAB 1000 MG PO (14:21)
[2025-05-17] MEDS: Methadone Liquid 10 MG/ML 60 MG PO (14:21)
[2025-05-17 14:30] LABS: Abs Immature Grans 0.02 10^3/uL (0.0-0.06); HCT 31.5 % (40.0-50.0); HGB 10.0 g/dL (13.5-17.5); Immature Grans % 0.3 %; MCH 27.8 pg (27.0-33.0); MCHC 31.7 % (32.0-36.0); MCV 88 fL (80-95); MPV 8.1 fL (8.0-11.0); Platelet Count 400 10^3/uL (130-400); RBC 3.60 10^6/uL (4.36-5.78); RDW 16.6 % (11.8-14.1); RDW-SD 52.8 fL; WBC 6.02 10^3/uL (4.4-10.8)
[2025-05-17 14:54] LABS: ALT 41 U/L (16-63); AST 33 U/L (15-37); Albumin 3.2 g/dL (3.4-5.0); Alkaline Phosphatase 57 U/L (46-116); Anion Gap 8.1 mmol/L (3-11); BUN 12 mg/dL (7-18); Bilirubin, Total 0.2 mg/dL (0.2-1.0); CO2 29.9 mmol/L (21.0-32.0); Calcium 8.6 mg/dL (8.5-10.1); Chloride 102 mmol/L (98-107); Estimated GFR 128.71 (mL/min/1.73m2); Glucose 90 mg/dL (74-106); Magnesium 2.0 mg/dL (1.8-2.4); Potassium 3.9 mmol/L (3.5-5.1); Sodium 140 mmol/L (136-145); Total Protein 7.0 g/dL (6.4-8.2)
[2025-05-17 15:44] VITALS: BP 118/69; PULSE 95; RESP 18; O2SAT 98
[2025-05-17 16:57] VITALS: BP 113/62; PULSE 102; RESP 16
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
[2025-05-17] MEDS: Apixaban 5 MG TAB 10 MG PO (17:02)
[2025-05-17] MEDS: Sulfameth/Trimeth DS TAB 1 TAB PO (17:02)
[2025-05-17] MEDS: Cephalexin 500 MG CAP PO (17:02)
[2025-05-17] MEDS: Cephalexin 500 MG CAP, 4 CAPS/BTL PO (17:02)
[2025-05-17] MEDS: Apixaban 5 MG TAB 20 MG PO (17:03)
[2025-05-17] MEDS: Sulfameth/Trimeth DS, 2 TABS/BTL 1 TAB PO (17:26)
== END 2025-05-17 17:18 | disposition home or self-care (01) ==
PROVIDERS: Emergency Provider Emergency Medicine
DX: L03.115 Cellulitis of right lower limb (principal); L02.511 Cutaneous abscess of right hand; Z59.00 Homelessness unspecified; Z73.9 Problem related to life management difficulty, unspecified
CPT/HCPCS: 36415; 80053; 87040; 99284; 73610; 83605; 83735; 85025

== ENCOUNTER 2025-05-18 11:22 | Emergency (ER) | payer SELFPAY ==
[2025-05-18 11:34] VITALS: BP 113/75; PULSE 111; RESP 14; TEMP 37.6; O2SAT 94
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
[2025-05-18] MEDS: Methadone Liquid 10 MG/ML 60 MG PO (11:56)
== END 2025-05-18 12:01 | disposition home or self-care (01) ==
PROVIDERS: Emergency Provider General Practice
DX: Z73.9 Problem related to life management difficulty, unspecified; Z59.00 Homelessness unspecified; F11.10 Opioid abuse, uncomplicated
CPT/HCPCS: 99283 ×2

== ENCOUNTER 2025-05-23 12:29 | Emergency (ER) | payer SELFPAY ==
[2025-05-23 12:30] VITALS: BP 124/76; PULSE 103; RESP 18; TEMP 36.3; O2SAT 97
[2025-05-23] MEDS: Methadone Liquid 10 MG/ML 80 MG PO (13:15)
[2025-05-23 13:30] VITALS: BP 132/84; PULSE 82; O2SAT 100
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
== END 2025-05-23 13:31 | disposition home or self-care (01) ==
PROVIDERS: Emergency Provider Nurse Practitioner Family
DX: F11.20 Opioid dependence, uncomplicated (principal)
CPT/HCPCS: 99283 ×2

== ENCOUNTER 2025-06-18 13:19 | Emergency (ER) | payer SELFPAY ==
[2025-06-18 13:32] VITALS: BP 116/64; PULSE 108; RESP 16; TEMP 36.7; O2SAT 96
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
[2025-06-18] MEDS: Methadone Liquid 10 MG/ML 90 MG PO (14:53)
== END 2025-06-18 14:56 | disposition home or self-care (01) ==
PROVIDERS: Emergency Provider Emergency Medicine
DX: F11.90 Opioid use, unspecified, uncomplicated (principal); Z73.9 Problem related to life management difficulty, unspecified; Z59.00 Homelessness unspecified
CPT/HCPCS: 99283 ×2